=== PATIENT | male | born 1940 | race Caucasian/White ===

== ENCOUNTER 2016-12-23 19:16 | Inpatient (IN) | payer MEDICARE ==
[2016-12-23 19:38] LABS: #Eosinphils 0.5 thou/uL (0.0-0.7); #Lymphocytes 1.5 thou/uL (1.20-3.40); #Monocytes 0.8 thou/uL (0.11-0.59); #Neutrophils 6.9 thou/uL (1.40-6.50); %Basophils 0.4 % (0.0-1.0); %Eosinophils 5.6 % (0.0-10.0); %Lymphocytes 15.6 % (21.0-51.0); %Monocytes 7.9 % (0.0-10.0); Hematocrit 41.1 % (42.0-52.0); Mean Platelet Volume 9.4 fL (7.4-10.4); Red Blood Cell (RBC) Count 5.36 mill/uL (4.70-6.10); White Blood Cell (WBC) Count 9.7 thou/uL (4.8-10.8)
[2016-12-23 19:46] LABS: PTT 29.2 SEC (22.9-36.1); Prothrombin Time 13.5 SEC (12.0-14.7)
[2016-12-23 20:03] LABS: ALT (SGPT) 13 U/L (8-55); AST (SGOT) 16 U/L (5-34); Alkaline Phosphatase 117 U/L (40-150); Anion Gap 14 mmol/L (10-20); BUN (Urea Nitrogen) 24 mg/dL (8.4-25.7); Bilirubin, Total 0.4 mg/dL (0.2-1.2); Calc. Creatinine Clearance 0 mL/min (70-130); Calcium 8.7 mg/dL (7.8-10.44); Carbon Dioxide 25 mmol/L (23-31); Chloride 100 mmol/L (98-107); Estimated GFR-MDRD 49; Globulin 2.9 g/dL (2.4-3.5); Lipase 63 U/L (8-78); Protein, Total 6.6 g/dL (5.8-8.1)
--- NOTE | 2016-12-23 20:04 | RAD ---
PORTABLE CHEST: 12/23/16 COMPARISON: 10/23/08 exam. HISTORY: Chest pain. The patient is rotated. Heart size appears borderline to slightly enlarged. Chronic appearing lung c hanges are seen without any definite focal infiltrates. IMPRESSION: Cardiomegaly with some mild chronic appearing lung change. POS: [facility]
[2016-12-23 20:07] LABS: Troponin I Less than 0.010 ng/mL (< 0.028)
[2016-12-23 21:15] LABS: Bilirubin Negative (Negative); Blood, Urine Negative (Negative); Glucose, Urine (Dipstick) Negative (Negative); Ketone, Urine Negative (Negative); Nitrite Negative (Negative); Protein, Urine (Dipstick) Negative (Neg-Trace)
[2016-12-23 21:24] LABS: Amphetamine Not Detected (NotDetected); Methadone Not Detected (NotDetected); Methamphetamine Not Detected (NotDetected)
[2016-12-23 21:31] LABS: Lactic Acid - Sepsis 2.9 mmol/L (0.5-2.2)
[2016-12-23] MEDS ORDERED: Furosemide 40 MG/4 ML VIAL ONE (22:07)
[2016-12-23] MEDS ORDERED: Furosemide 20 MG/2 ML VIAL ONE (22:07)
[2016-12-24] MEDS ORDERED: Ondansetron ODT 4 MG TAB SL PRN (03:05)
[2016-12-24] MEDS ORDERED: HYDROcodone/Acetaminophen 10/325 mg Tablet PO PRN (03:05)
[2016-12-24] MEDS ORDERED: Ondansetron HCl/PF 4 MG/2 ML Vial IVP PRN (03:05)
[2016-12-24] MEDS ORDERED: Dextrose 5% in Water 1,000 ML IV PRN (03:05)
[2016-12-24] MEDS ORDERED: Dextrose 50% Abboject 50 ML SYRINGE SLOW IVP PRN (03:05)
[2016-12-24] MEDS ORDERED: HYDROcodone/Acetaminophen 5/325 mg Tablet PO PRN (03:05)
[2016-12-24] MEDS ORDERED: Acetaminophen 325 MG TAB PO PRN (03:05)
[2016-12-24] MEDS ORDERED: HumaLOG 300 UNITS/3 ML VIAL SC PRN (03:05)
[2016-12-24] MEDS ORDERED: Ondansetron ODT 4 MG TAB PO PRN (03:05)
[2016-12-24 03:08] LABS: Troponin I 0.014 ng/mL (< 0.028)
[2016-12-24] MEDS: Potassium Chloride 20 MEQ TAB PO SCH ×3 (03:30→12:41)
[2016-12-24 03:51] VITALS: BMI 38.2
[2016-12-24 04:05] LABS: #Lymphocytes 1.8 thou/uL (1.20-3.40); #Monocytes 0.6 thou/uL (0.11-0.59); #Neutrophils 6.1 thou/uL (1.40-6.50); %Basophils 0.2 % (0.0-1.0); %Eosinophils 10.4 % (0.0-10.0); %Lymphocytes 19.2 % (21.0-51.0); %Monocytes 6.4 % (0.0-10.0); Hematocrit 38.8 % (42.0-52.0); Mean Platelet Volume 10.1 fL (7.4-10.4); Red Blood Cell (RBC) Count 5.05 mill/uL (4.70-6.10); White Blood Cell (WBC) Count 9.5 thou/uL (4.8-10.8)
[2016-12-24 04:12] LABS: Anion Gap 12 mmol/L (10-20); BUN (Urea Nitrogen) 20 mg/dL (8.4-25.7); Calc. Creatinine Clearance 91 mL/min (70-130); Calcium 8.3 mg/dL (7.8-10.44); Carbon Dioxide 24 mmol/L (23-31); Chloride 105 mmol/L (98-107); Estimated GFR-MDRD 56
--- NOTE | 2016-12-24 06:52 | HP ---
DATE OF ADMISSION: 12/24/2016 TIME OF VISIT: 0140 hours. CHIEF COMPLAINT: Abnormal rhythm. HISTORY OF PRESENT ILLNESS: Mr. Hurst is a pleasant 76-year-old gentleman with history of recurren t atrial fibrillation. He states he had ablation on three occasions and cardioversion at least a do diamond times. The patient has been in normal state of health about 3 days ago when he started noticed he would become more short of breath. He would check his pulse ox on the pulse oximeter and notes t hat his rate would fluctuate anywhere from 40-180. Today, he felt a little worse than normal, he called EMS and arrival was found to be \\\\"in SVT\\\\". He was transported to the hospital and en route received adenosine 6 mg followed by 12 mg and suppos edly it converted at that point to atrial fibrillation with RVR. He received a dose of Cardizem x1 and converted to normal sinus rhythm which he has been in since arrival to our ER. His blood pressu re on the low side after getting the Cardizem, and in the ER, he received initial 2 liters of IV flu ids and looks like he did get a third after that. They were concerned they gave him too much fluid and may go into heart failure; therefore, he got a dose of IV Lasix. His heart rate remained in the mid 90s since that time. He denies any chest pain or shortness of breath, his oxygen saturations h ave been maintained normal on room air. The patient has been eating okay, but not drinking as much water. He started drinking a peach tea that he gets from the grocery store and did not realize that had caffeine. He thinks it may have been inadvertently diurese himself with that instead. No other current complaints. Denies any chest pain, no nausea and vomiting, no diaphoresis or sweat s. In the ER after his fluids, his blood pressure normalized in the one-teens over 60s. When I came an d ultimately see him, his blood pressure dropped to 98/68 after putting out almost a liter with his IV Lasix, a repeat blood pressure with standing up was only slightly better at 102/65, therefore it was decided to observe him. He had no other current complaints. PAST MEDICAL HISTORY: 1. Atrial fibrillation, recurrent. He thinks it has been sinus rhythm for about a year or so. He is followed by Dr. Karri Marr at [facility]. 2. Coronary artery disease. 3. Heart attack x2 in the past with stents. 4. Diabetes mellitus type 2 on insulin. 5. Depression. 6. Obstructive sleep apnea. PAST SURGICAL HISTORY: 1. Right femur repair. 2. Appendectomy. 3. Tonsillectomy. 4. Cardiac ablation x3. 5. Cardioversion times possibly 12. HOME MEDICATIONS: 1. Potassium chloride 20 mEq daily. 2. Sitagliptin 5 mg p.o. daily. 3. Lantus 51 units subcu q.p.m. 4. Lisinopril 20 mg p.o. q.a.m.. 5. Lasix 40 mg p.o. b.i.d. 6. Aspirin 81 mg daily. 7. Omeprazole 20 mg p.o. b.i.d. 8. Metformin 1000 mg p.o. b.i.d. ALLERGIES: CIPRO. FAMILY HISTORY: Negative for clotting or bleeding disorder and no immune dysfunction. SOCIAL HISTORY: Significant for a drink he says once about every 18 months. No tobacco or drugs. He is and lives with his here locally. He has 8 sons-in-law and a daughter who lives [facility]. REVIEW OF SYSTEMS: A 10-point review of systems was performed and negative for all other systems ex cept as stated as per HPI. PHYSICAL EXAMINATION: VITAL SIGNS: Temperature 98.7, pulse 96, blood pressure currently is 102/65, respiratory rate 22, a nd satting 95% on room air. GENERAL: He is awake. He is alert. He is oriented x3. He does appear to be in no acute distress, well-developed, obese white male, appears to be comfortable. HEENT: Normocephalic and atraumatic. Pupils equal and reactive bilaterally, mucous membranes are m oist. There are no visible lesions. No thrush. NECK: Supple, no lymphadenopathy, no JVD, no thyromegaly with normal carotid upstrokes. LUNGS: Clear to auscultation bilaterally. He has no wheezing, no rales, no rhonchi. CARDIOVASCULAR: Normal S1, S2, slightly tachycardic in the mid 90s. He has no audible murmurs. ABDOMEN: Soft, is obese, is nontender. I cannot palpate his organs. EXTREMITIES: Show no cyanosis, no clubbing, and no edema. He has 1+ peripheral pulses, dorsalis pe dis, posterior tibial, and radial arteries. SKIN: Warm, moist, well perfused. He has no rashes, no lesions. MUSCULOSKELETAL: Normal to inspection. He has no inflamed joints. No palpable joint effusions. NEUROLOGIC: Cranial nerves II-XII are grossly intact without any focal neurologic deficits, 5/5 str ength, and normal speech pattern. LABORATORY DATA: A comprehensive metabolic profile is normal. Creatinine 1.4, glucose 174. CBC sh owed a white count 9.7, hemoglobin 12.7, hematocrit 41.4, and platelets 121,000. Chest x-ray was ne gative for acute cardiopulmonary disease. ASSESSMENT AND PLAN: 1. Atrial fibrillation, paroxysmal. The patient had been in sinus rhythm for about a year. I susp ect he became dehydrated on his peach tea that he was drinking, not been drinking much fluid. He dos santos bsequently developed tachycardia that was along with atrial fibrillation. I doubt he ever had any C T and I have not been able to see any rhythm strips from that. At this time, he is converted back t o sinus rhythm with a dose of Cardizem, however, did make him hypotensive and therefore he got fluid s in the ER. Due to concern over resuscitating him, he got a dose of IV Lasix, he has not started t o become slightly hypotensive again. We will place the patient on observation, biomarkers have been negative x2, lactic acid has normalized, I will watch him through the day. 2. [id number]-[id number] dehydration: The patient's lactic acid was 4 on admission. After 2-3 liters of fluid, his lactic acid normalized to 1.6. Troponin I was negative and CK-MB was negative. BNP was 36 on arrival. At this point, I think dehydration has mostly resolved, although that the given a dose of IV Lasix, he maybe getting a little volume down again. We will continue to monitor and janie caraballo need to check orthostatics. 3. Coronary artery disease with history of myocardial infarction x2: No chest pain. Negative trop onin. 4. Diabetes mellitus type 2, insulin-dependent, on Lantus, sitagliptin, metformin. I will restart his medications. I will use sliding scale insulin to correct until he receives his Lantus. 5. Depression. 6. Obstructive sleep apnea: The patient did bring his CPAP with him. It is okay for him to use th at. I will observe the patient throughout the course of the day today. I suspect if his blood pressure is normal, he may be able to go home later on today.
--- NOTE | 2016-12-24 07:50 | PDOC.EVN ---
Event Note - Event Note Event Note: complaint expressed. Feels better. No palpitation, no CP. PR90, BP 102/62 S1S2 regular Lungs clear no legs edema. A/ Paroxysmal atrial fibrillation,seen by field producer. Continue current management. Home tomorrow.
[2016-12-24] MEDS: Furosemide 40 MG TAB PO SCH ×2 (08:36→12:41)
[2016-12-24] MEDS: metFORMIN 500 MG TAB PO SCH ×2 (08:37→17:48)
[2016-12-24] MEDS: Famotidine 20 MG TAB PO SCH ×2 (08:39→20:43)
[2016-12-24] MEDS: Enoxaparin Sodium 40 MG/0.4 ML SYRINGE SC SCH (08:41)
[2016-12-24] MEDS ORDERED: Lisinopril 20 MG TAB PO SCH (09:00)
--- NOTE | 2016-12-24 10:27 | RAD ---
CHEST 1 VIEW: HISTORY: Shortness of breath. COMPARISON: Chest 1 view prior day. FINDINGS: There is some chronic scarring in the right lung base. Cardiac silhouette and mediastinal contours are similar. Large volume pericardial fat. IMPRESSION: No significant change in the radiographic appearance of the chest. POS: [facility]
[2016-12-24 11:17] LABS: Sodium 137 mmol/L (135-148)
[2016-12-24 11:19] LABS: Mode ROOM AIR
--- NOTE | 2016-12-24 14:38 | CT ---
CTA CHEST WITH CONTRAST: HISTORY: Shortness of breath, tachycardia. COMPARISON: None. TECHNIQUE: CT angiogram chest performed after the intravenous administration of contrast. Three-D rendering pr ovided. There are extensive subcutaneous collaterals to the left chest wall. This is just a proxim al stenosis of the axillary subclavian vein. This would be the left axillary or subclavian vein or possibly even the brachial vein given the left injection. No proximal segmental pulmonary arterial filling defect. Numerous peritracheal and subcarinal lymph nodes are mildly increased in size and number. Heart size is normal, although there is extensive e picardial fat. There is consolidation in the right lower lobe. Mild interstitial prominence in the lung bases sugg ests edema. No pneumothorax. No suspicious lytic or blastic lesions of the skeleton. No compression fracture o f the thoracic spine. Benign-appearing sclerosis of the left posterior 8th rib. No displaced rib fracture. The upper abdomen is unremarkable. Small sliding hiatal hernia. IMPRESSION: 1. 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 Ultrasound cj luation may be helpful. 2. Numerous mildly increased in number and size of mediastinal lymph nodes may be reactive may be r eactive, although lymph node proliferative disorder cannot be excluded. Clinical followup is sugges alvino. 3. Consolidation right lower lobe suggests infection. 4. Mild pulmonary edema. 5. Extensive epicardial fat. POS: [facility]
--- NOTE | 2016-12-24 15:26 | CON ---
DATE OF CONSULTATION: 12/24/2016 REASON FOR CONSULTATION: Atrial fibrillation, RVR and SVT. HISTORY OF PRESENT ILLNESS: Mr. Hurst is a 76-year-old white gentleman, who comes to the hospital for tachycardia. He states that for the last few days, he has noticed he becomes really short of br eath with any exertion. He would check his pulse oximeter and his heart rate went from 40s to the 1 80s. The symptoms would not go away, so eventually he decided to come in for evaluation. EMS arriv ed at his house and he was found to be in SVT. He was brought in and in the ER, he received a dose of adenosine and converted him into atrial fibrillation with RVR after that he received a dose of Ca rdizem in the ER and this converted him to sinus rhythm with a long first degree AV block and was ad mitted for this. It was noted that he might be volume depleted, so he was started on IV fluids. He got a total of about 4 liters. His creatinine got better after that. Currently, he remains in sin us rhythm, he gets very tachycardic when he stands and walks around and he is much more short of mayco ath than normal. He has a history of atrial tachycardias and atrial fibrillation with several abras ions in the past and several cardioversions. He has never felt his atrial fibrillation. He has nev er really noticed any shortness of breath while in atrial fibrillation, so this has really not been normal to how he has presented in the past with atrial fibrillation. He denies any long travel rece ntly. 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 PAST MEDICAL HISTORY: 1. Atrial fibrillation and atrial tachycardia in the past followed by Dr. Karri Marr. 2. Coronary artery disease with stent placement, last time about 2 years ago. 3. He had an ID back in 2007 with stents placed. 4. Type 2 diabetes. 5. Depression. 6. HAMILTON. PAST SURGICAL HISTORY: 1. Right femur repair. 2. Appendectomy. 3. Tonsillectomy. 4. Cardiac ablation x3. 5. Cardioversion several times about 12 times apparently. OUTPATIENT MEDICATIONS: Include: 1. Potassium chloride 20 mEq a day. 2. Sitagliptin 5 mg a day. 3. Lantus. 4. Lisinopril 20 mg q.a.m. 5. Lasix 40 mg b.i.d. 6. Aspirin 81 a day. 7. Omeprazole 20 mg b.i.d. 8. Metformin 1000 mg b.i.d. ALLERGIES: CIPRO. FAMILY HISTORY: Noncontributory. SOCIAL HISTORY: No alcohol, tobacco or drugs. Lives with his here in [place]. He has 9 childre n, 8 sons-in-law and a daughter. REVIEW OF SYSTEMS: A 10-point review of systems was done and is all negative unless stated in the h istory of present illness. PHYSICAL EXAMINATION: VITAL SIGNS: Temperature 97.5, pulse 100, respiration rate 18, satting 95% on room air, blood press ure 119/68. GENERAL: Awake, alert, oriented x3, no distress. HEENT: Normocephalic, atraumatic. NECK: Supple. LUNGS: Clear. CARDIOVASCULAR: S1, S2, no S3 or S4. No murmurs or rubs. ABDOMEN: Soft, but prominent. EXTREMITIES: Trace edema bilaterally. SKIN: Warm and dry. LABORATORY WORK: Reviewed. CBC with a white count of 9, hemoglobin 12, hematocrit 41, platelet cou nt of 121. Coags were unremarkable. ABG was reviewed. PCO2 was low and pO2 was actually high, pH was 7.47. Chemistries are unremarkable. Lactic acid on admission was 4.0, down to 1.6. Calcium wa s normal. Troponin has been negative x2. TSH was normal. Lipase was 63, creatinine went from 1.4 down to 1.25 with GFR of 56. UA was negative. Toxicology UDS was normal. IMAGING: EKG on admission showed a sinus rhythm with a long first degree AV block, ND interval was 312. Chest x-ray was reviewed on admission, it showed mild cardiomegaly with no acute findings. A repeat chest x-ray showed similar findings with no changes. ASSESSMENT AND PLAN: 1. Shortness of breath. 2. Atrial fibrillation with rapid ventricular response, currently in sinus rhythm with episodes of sinus tachycardia when standing up. 3. Atrial tachycardia/supraventricular tachycardia. 4. Coronary artery disease, no evidence of acute coronary syndrome currently. 5. Status post multiple ablations. PLAN: 1. We will get an EKG right now. He has tachycardia in the 110s. He is still in atrial fibrillati on because of his long ND interval it is hard to see if there is any P waves on telemetry and it see ms quite regular. Otherwise, I am concerned about pulmonary embolism at this time, as I do not have a good explanation for his shortness of breath. He has got a clear x-ray clear lung mitchell and he is still getting short of breath with tachycardia when he moves around. We will get a CT angio and more recommendations pending results. 2. We will repeat an echocardiogram as well to look at LV function and valvular structures. Thank you for letting us to participate in the care of your patient. We will continue to follow.
[2016-12-24] MEDS: Lisinopril 20 MG TAB PO SCH (20:43)
[2016-12-24] MEDS: PRE FILLED SC SCH (20:44)
[2016-12-24] MEDS: INSULIN DETEMIR SC SCH (20:44)
[2016-12-25] MEDS: Enoxaparin Sodium 40 MG/0.4 ML SYRINGE SC SCH (08:50)
[2016-12-25] MEDS: Famotidine 20 MG TAB PO SCH ×2 (08:52→21:16)
[2016-12-25] MEDS: Furosemide 40 MG TAB PO SCH ×2 (08:52→15:41)
[2016-12-25] MEDS: metFORMIN 500 MG TAB PO SCH ×2 (08:52→17:46)
[2016-12-25] MEDS ORDERED: cefTRIAXone\\ROCEPHIN 2 GM in Sodium Chloride 0.9% 100 ML IVPB SCH (11:00)
[2016-12-25] MEDS ORDERED: Azithromycin 500 MG in Sodium Chloride 0.9% 250 ML 250 ML IVPB SCH (12:00)
[2016-12-25] MEDS ORDERED: Iopamidol 370 76% 100 ML VIAL ONE (14:39)
[2016-12-25] MEDS ORDERED: Metoprolol Tartrate 5 MG/5 ML VIAL IVP PRN (14:42)
--- NOTE | 2016-12-25 14:49 | PDOC.PN ---
- Subjective Encounter Start Date: 12/25/16 Encounter Start Time: 10:30 Pt seen and examined. chart reviewed. Case discussed with Dr Senior face-to- face. pt had echo done earlier today. I had ambulatory O2 checked after i saw, 95% on RA. Pt remains tachycardic with GABY. CTA negative for PE but did show RLL atelectasis, ractive nodes, labs look good Tele shows NSr, tachycardic. technology methodology consultant thought it might be jxnl, but form and rate not right for JRT or ARIANNE. No F/c, no N/V/d/C,no CP, no SOB at rest 10 point ROS performed and neg for all except as per HPI - Objective Resuscitation Status: Resuscitation Status FULL:Full Resuscitation MAR Reviewed: Yes Vital Signs & Weight: Vital Signs (12 hours) Temp Pulse Resp BP BP Pulse Ox 12/25/16 11:10 102 H 18 125/78 95 12/25/16 08:00 98.3 F 104 H 20 12/25/16 04:05 98.3 F 104 H 20 107/63 96 Weight Admit Weight 289 lb 14.4 oz Weight 289 lb 14.4 oz I&O: 12/24/16 12/25/16 12/26/16 06:59 06:59 06:59 Intake Total 360 720 Balance 360 720 Result Diagrams: 12/24/16 02:34 12/24/16 02:34 Additional Labs: Accuchecks 12/25/16 12/25/16 12/25/16 11:15 07:49 05:31 POC Glucose 114 H 119 H 68 L 12/24/16 12/24/16 20:42 16:35 POC Glucose 107 143 H Radiology Reviewed by me: Yes EKG Reviewed by me: Yes Phys Exam - Physical Examination Constitutional: NAD HEENT: PERRLA, moist MMs, sclera anicteric, oral pharynx no lesions Neck: no nodes, no JVD, supple, full ROM Respiratory: no wheezing, no rales, no rhonchi, clear to auscultation bilateral decreased Right basilar BS, no rales Cardiovascular: RRR, no significant murmur, no rub Gastrointestinal: soft, non-tender, no distention, positive bowel sounds Musculoskeletal: pulses present, edema present 1+ BLE Neurological: non-focal, normal sensation, moves all 4 limbs Lymphatic: no nodes Psychiatric: normal affect, A&O x 3 Skin: no rash, normal turgor, cap refill <2 seconds Dx/Plan (1) Paroxysmal a-fib Code(s): I48.0 - PAROXYSMAL ATRIAL FIBRILLATION Status: Acute Comment: in NSR since he got cardizem by EMS. still tachy. discussed with nadeen, will give IV lopressor and EKG before and after (2) Hypotension Status: Acute Qualifiers: Hypotension type: hypotension due to drug Qualified Code(s): I95.2 - Hypotension due to drugs Comment: initally due to cardizem, but improved, just as given lasix in ER with recurrent drop as he diuresed. 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 - Plan cont current plan of care * . EKG for baseline, IV lopressor, repeat. No hypoxia, soem ALMANZAR. echo report pending, Nadeen to review. Stat BNP ordered due to mild pulm edema on CTA
--- NOTE | 2016-12-25 16:20 | EKG ---
Test Reason : Blood Pressure : / mmHG Vent. Rate : 101 BPM Atrial Rate : 214 BPM P-R Int : 000 ms QRS Dur : 078 ms QT Int : 312 ms P-R-T Axes : 000 076 052 degrees QTc Int : 404 ms Normal sinus rhythm with 1st degree A-V block Abnormal ECG Confirmed by KIM GALLEGOS ([id number]) on 12/25/2016 4:20:04 PM Referred By: GURJIT Confirmed By:KIM GALLEGOS
--- NOTE | 2016-12-25 17:00 | EKG ---
Test Reason : Blood Pressure : / mmHG Vent. Rate : 107 BPM Atrial Rate : 115 BPM P-R Int : 000 ms QRS Dur : 102 ms QT Int : 342 ms P-R-T Axes : 000 071 054 degrees QTc Int : 456 ms sinus with long IN interval and nearly hidden P waves Abnormal ECG When compared with ECG of 24-DEC-2016 14:05, (Unconfirmed) No significant change was found Confirmed by DR. Cezar DUMONT ([id number]) on 12/25/2016 5:00:35 PM Referred By: ARACELI Confirmed By:DR. Cezar DUMONT
--- NOTE | 2016-12-25 17:52 | PDOC.CTH ---
Cardiology Progress Note - Subjective He remains tachycardic and SOB with any exertion. - Objective Vital Signs Temp Pulse Resp BP BP Pulse Ox 12/25/16 15:33 98.3 F 108 H 24 H 117/66 95 12/25/16 11:10 102 H 18 125/78 95 12/25/16 08:00 98.3 F 104 H 20 Admit Weight 289 lb 14.4 oz Weight 289 lb 14.4 oz 12/24/16 12/25/16 12/26/16 06:59 06:59 06:59 Intake Total 360 720 Balance 360 720 - Physical Examination General/Neuro: alert & oriented x3 Neck: no JVD present Lungs: CTA, unlabored respirations Heart: RRR Abdomen: NT/ND Extremities: + edema B (trace) - Telemetry Telemetry Rhythm: S tach, 1st degree AVB - Labs Result Diagrams: 12/24/16 02:34 12/24/16 02:34 Troponin/CKMB CK-MB (CK-2) 2.0 ng/mL (0-6.6) 12/23/16 19:33 Troponin I 0.014 ng/mL (< 0.028) 12/24/16 02:34 - Assessment/Plan 1. Sinus tachycardia 2. 1st degree AV block, long 3. Possible infiltrate 4. Reactive lymphadenopathy. PLAN: - Consider pulmonary evaluation. - Continue Abx per primary team.
[2016-12-25] MEDS ORDERED: Furosemide 40 MG/4 ML VIAL SLOW IVP SCH (18:00)
[2016-12-25] MEDS: PRE FILLED SC SCH (21:17)
[2016-12-25] MEDS: INSULIN DETEMIR SC SCH (21:17)
[2016-12-25] MEDS: Lisinopril 20 MG TAB PO SCH (21:17)
[2016-12-26] MEDS: Enoxaparin Sodium 40 MG/0.4 ML SYRINGE SC SCH (08:22)
[2016-12-26] MEDS: Furosemide 40 MG TAB PO SCH ×2 (08:23→14:24)
[2016-12-26] MEDS: metFORMIN 500 MG TAB PO SCH ×2 (08:23→18:12)
[2016-12-26] MEDS: Famotidine 20 MG TAB PO SCH ×2 (08:23→21:24)
--- NOTE | 2016-12-26 11:12 | CON ---
DATE OF CONSULTATION: 12/26/2016 CONSULTING PHYSICIAN: Dr. Arriaga from the [facility]. REASON FOR CONSULTATION: Right lower lobe atelectasis. HISTORY OF PRESENT ILLNESS: The patient is a 76-year-old male who presented here with an elevated h eart rate. He was found to be in SVT with a heart rate of about 180. He had a CT pulmonary angiogr am to rule out pulmonary emboli. This showed right lower lobe atelectasis. I was consulted to give an opinion on that. The patient states that he was diagnosed with the atelectasis about 30 years ago. He had a negative PET scan about 20 years ago. He has been followed by Dr. Shepard at [facility] 2 times over the last 8 years and apparently has x-rays over there demonstrating this. PAST MEDICAL HISTORY: 1. Atrial fibrillation. 2. Coronary artery disease. 3. Diabetes mellitus. 4. The right lower lobe atelectasis. 5. Depression. 6. Obstructive sleep apnea. PAST SURGICAL HISTORY: 1. Right femur repair. 2. Appendectomy. 3. Tonsillectomy. 4. Cardiac ablations. 5. Cardioversion. MEDICATIONS PRIOR TO ADMISSION: Potassium, sitagliptin, Lantus, lisinopril, Lasix, aspirin, omepraz ole, metformin. ALLERGIES: CIPRO. FAMILY MEDICAL HISTORY: Unremarkable. SOCIAL HISTORY: Very occasionally drinks alcohol. No tobacco history. REVIEW OF SYSTEMS: Ten point review of systems otherwise negative. PHYSICAL EXAMINATION: VITAL SIGNS: Temperature 97.9, pulse 107, respirations 20, O2 sat 95%, blood pressure 99/54. GENERAL: He is awake and alert, in no distress. HEENT: Unremarkable. NECK: No JVD. LUNGS: Clear to auscultation except for a few crackles in the right base. CARDIAC: S1, S2 regular. ABDOMEN: Soft, nontender. EXTREMITIES: No edema. LABORATORY DATA: White blood cell count 9.5, hematocrit 38.8, platelet count 122. Sodium 137, pota ssium 4.2, BUN 20, creatinine 1.2, glucose 114. CT was reviewed and shows a small area of atelectasis in the right lower lobe. ASSESSMENT: Atelectasis - patient gives a good history that this has been present. Apparently the re are old films that can substantiate this. RECOMMENDATIONS: I do not recommend any further follow from my standpoint. He can go back and see Dr. Shepard at [facility] and compare these films to the previous films. Please recall if evangelina morris help needed.
--- NOTE | 2016-12-26 11:58 | EKG ---
Test Reason : Blood Pressure : / mmHG Vent. Rate : 103 BPM Atrial Rate : 105 BPM P-R Int : 000 ms QRS Dur : 086 ms QT Int : 316 ms P-R-T Axes : 000 082 -12 degrees QTc Int : 413 ms Sinus tachycardia with 1st degree A-V block T wave abnormality, consider inferior ischemia Abnormal ECG When compared with ECG of 25-DEC-2016 15:37, Previous ECG has undetermined rhythm, needs review Confirmed by DR. Cezar DUMONT ([id number]) on 12/26/2016 11:57:45 AM Referred By: ARACELI Confirmed By:DR. Cezar DUMONT
--- NOTE | 2016-12-26 12:57 | PDOC.PN ---
- Subjective Encounter Start Date: 12/26/16 Encounter Start Time: 12:55 Subjective: f/u for SVT and hypotension. Plan for EP evaluation. Overall feels ok. -: SOB with movement or ambulation. - Objective MAR Reviewed: Yes Vital Signs & Weight: Vital Signs (12 hours) Temp Pulse Resp BP Pulse Ox 12/26/16 11:48 97.9 F 111 H 18 100/56 L 94 L 12/26/16 07:12 98.0 F 107 H 20 99/54 L 95 12/26/16 04:00 97.9 F 106 H 20 103/61 95 Weight Weight 283 lb 8 oz I&O: 12/25/16 12/26/16 12/27/16 06:59 06:59 06:59 Intake Total 720 1260 Output Total 1225 Balance 720 35 Result Diagrams: 12/24/16 02:34 12/24/16 02:34 Additional Labs: Accuchecks 12/26/16 12/26/16 12/25/16 11:51 05:43 20:03 POC Glucose 124 H 103 115 H 12/25/16 16:36 POC Glucose 151 H Radiology Reviewed by me: Yes (2D Echo - EF 60-65%, mild LAE) EKG Reviewed by me: Yes (Tele - Sinus tachy in low 100's) Phys Exam - Physical Examination Constitutional: NAD HEENT: PERRLA, oral pharynx no lesions Neck: no JVD, supple Respiratory: no wheezing, clear to auscultation bilateral tachycardic Gastrointestinal: soft, non-tender, no distention, positive bowel sounds Musculoskeletal: no edema, pulses present Neurological: normal sensation, moves all 4 limbs Psychiatric: A&O x 3 Skin: normal turgor, cap refill <2 seconds Dx/Plan (1) Sinus tachycardia Code(s): R00.0 - TACHYCARDIA, UNSPECIFIED Status: Acute Comment: Etiology unclear, EP evaluation, ? trial of Beta flavia (2) Hypotension Status: Acute Qualifiers: Hypotension type: hypotension due to drug Qualified Code(s): I95.2 - Hypotension due to drugs Comment: initally due to cardizem, but improved, just as given lasix in ER with recurrent drop as he diuresed. BP now normal (3) Paroxysmal a-fib Code(s): I48.0 - PAROXYSMAL ATRIAL FIBRILLATION Status: Acute Comment: in NSR since he got cardizem by EMS. 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 (5) DM2 (diabetes mellitus, type 2) Status: Chronic Qualifiers: Diabetes mellitus complication status: without complication Diabetes mellitus shelter insulin use: with retail asset protection specialist use Qualified Code(s): E11.9 - Type 2 diabetes mellitus without complications; Z79.4 - shelter (current) use of insulin; Z79.4 - mat worker (current) use of insulin; Z79.4 - mat worker ( current) use of insulin; Z79.4 - shelter (current) use of insulin (6) Dehydration, moderate Code(s): E86.0 - DEHYDRATION Status: Resolved Comment: Resolved - Plan out of bed/ambulate, DVT proph w/SCDs Appreciate Cardiololgy and Pulmonary input -: Continue ASA 81mg daily -: Continue Lasix 4omg BID -: Continue Metformin 1000mg BID -: OOB/ambulate * .
--- NOTE | 2016-12-26 16:45 | PDOC.CTH ---
Cardiology Progress Note - Subjective He continues to feel SOB with any exertion. - Objective Vital Signs Temp Pulse Resp BP Pulse Ox 12/26/16 11:48 97.9 F 111 H 18 100/56 L 94 L 12/26/16 07:12 98.0 F 107 H 20 99/54 L 95 Weight 283 lb 8 oz 12/25/16 12/26/16 12/27/16 06:59 06:59 06:59 Intake Total 720 1260 Output Total 1225 Balance 720 35 - Physical Examination General/Neuro: alert & oriented x3, NAD Neck: no JVD present Lungs: unlabored respirations Heart: RRR Abdomen: NT/ND Extremities: other: (no edema) - Telemetry Telemetry Rhythm: Stach vs slow Atach - Labs Result Diagrams: 12/24/16 02:34 12/24/16 02:34 Troponin/CKMB CK-MB (CK-2) 2.0 ng/mL (0-6.6) 12/23/16 19:33 Troponin I 0.014 ng/mL (< 0.028) 12/24/16 02:34 - Assessment/Plan 1. Sinus tachycardia verdsus slow atach, short RP? 2. 1st degree AV block, long versus short RP tachycardia. 3. Possible infiltrate 4. Reactive lymphadenopathy. PLAN: - EP consultation.
[2016-12-26] MEDS: INSULIN DETEMIR SC SCH (21:24)
[2016-12-26] MEDS: PRE FILLED SC SCH (21:24)
[2016-12-26] MEDS: Apixaban 5 MG TAB PO SCH (21:24)
[2016-12-26] MEDS: Lisinopril 20 MG TAB PO SCH (21:24)
--- NOTE | 2016-12-27 00:34 | CON ---
ELECTROPHYSIOLOGY CONSULTATION REPORT DATE OF CONSULTATION: 12/26/2016 REFERRING PHYSICIAN: Dr. Senior. I am seeing Mr. Hurst at our [facility] telemetry floor as an electrophysiology solutions delivery consultant for the following problems: 1. Presentation with atrial arrhythmia with rapid rates. A. Initial presentation with worsening dyspnea and also heart rates ranging in 180s. B. In the ER, he was given adenosine, which converted him to atrial fibrillation with rapid ventric ular rates, which eventually required diltiazem and that converted him back to regular rhythm. C. Currently, with persistent atrial tachycardia. 2. Prior history of paroxysmal atrial fibrillation. A. History of atypical atrial flutter ablation in 12/2014. B. Two other prior ablation procedures per history. 3. History of oral anticoagulation. Currently off hence the bloody stool. 4. History of preserved LVEF. 5. Coronary artery disease. A. Prior history of stent placement about 2 years ago last time. B. History of myocardial infarction in 2007 with stent placements at that time as well. 6. History of obstructive sleep apnea, on CPAP. 7. Coronary artery risk factors. A. Type 2 diabetes. B. Hyperlipidemia. C. Hypertension. D. Obesity. 8. History of depression. ALLERGIES: CIPROFLOXACIN. CURRENT MEDICATIONS: Include Tylenol, hydrocodone, aspirin, dextrose, Lovenox, Pepcid, furosemide, glucagon, insulin, lisinopril, metformin, metoprolol, sodium. These are the medications currently. HOME MEDICATIONS: Include lisinopril 20 mg, furosemide 40 b.i.d., Lipitor 20 at bedtime, metformin, Onglyza, potassium chloride, omeprazole, aspirin, glargine insulin and saxagliptin. SUBJECTIVE: Mr. Hurst is here with symptoms of progressive dyspnea. He has had more prominent dys pnea though in the hospital, but previously at times, he also had orthopnea like symptoms. Sometime s, he sits on the side of the bed to breathe. More recently 2 days ago, started noticing worsening dyspnea. He also noticed his heart rate was fluctuating from low 40s to 180s. Eventually, he acevedo d the EMS. He was found to be in SVT. En route, received 6mg adenosine followed by 12 mg, which co nverted at that point atrial fibrillation to rapid ventricular rate. He did require diltiazem after that and ever since he is in a rapid with regular rhythm. He might go back into somewhat irregular heart beating as well. He was also noted to be dehydrated and he received some fluids. He also had abnormal lactic acid at that time. He denies any chest pains, did not pass out. No stroke-like symptoms. No neurological deficits. No fever, chills or cough. No PND or orthopnea noted. Rest of 12-point review of syste ms otherwise unremarkable. PAST MEDICAL HISTORY: As above. SOCIAL HISTORY: Patient denies smoking, EtOH or drug abuse. FAMILY HISTORY: Not contributory. PAST SURGICAL HISTORY: Significant for right femoral repair, appendicectomy, tonsillectomy, multipl e ablations and cardioversion. OBJECTIVE: VITAL SIGNS: Currently, blood pressure is 105/58, heart rate of 109, respirations 17 and temperatur e 97.6 degrees Fahrenheit. GENERAL: This is an alert, oriented, obese man in no apparent distress. NECK: Supple. Jugular veins not distended. CHEST: Coarse without crackles. CARDIOVASCULAR: Heart sounds are regular, but tachycardic. S1, S2 normal. No murmur or gallop. ABDOMEN: Benign. Bowel sounds positive. EXTREMITIES: Lower extremities without edema, clubbing or cyanosis. DATABASE: EKG is reviewed, revealing a regular narrow complex rhythm. P waves are visible right at the midway in between the QRS. I cannot rule out 2:1 atrial tachycardia or atrial flutter. Additional rhythm strips are reviewed, did reveal Wenckebach type AV conduction with rapid rates, po ssibly the same atrial tachyarrhythmia. LABORATORY AND IMAGING DATA: White count 9.5, hemoglobin 11.8 and platelet count is 122. INR 1. S odium 137, potassium 4.2, BUN is 20, creatinine is 1.25. Troponin levels reviewed are 0.01 and 0.01 4, normal. BNP was 36 on and 146 on the . A 2D echo from 12/25 reveals an LVEF of 60% to 65%, mild dilated left atrium, mild MR, mild TR, tiny pericardial effusion. Chest x-ray from the shows cardiomegaly with mild chronic lung changes unchanged. ASSESSMENT AND PLAN: Mr. Hurst is a 76-year-old man with prior history of atrial arrhythmias and s tatus post 3 ablations in the past most recently about 12/2014. He also has history of some diastol ic heart failure with normal left ventricular ejection fraction. He has presented with progressive dyspnea for the last 3 days and also noted to be in rapid narrow complex rhythm by EMS. Adenosine j ust converted him to atrial fibrillation and diltiazem has stabilized his rhythm. Currently, seems to be rate controlled with rest, but with activities, his heart rate increases. I discussed the potential treatment options. I think it will be reasonable to perform a cardioversi on for him. He might benefit from a LUKASZ prior to that to rule out any kind of intracardiac clots he nce he has not been anticoagulated. Continue anticoagulation will be reasonable. Assisted, he migh t be considered for a repeat ablation versus antiarrhythmic regimen. If recurrences are seen Multaq versus sotalol are reasonable options. I will discuss this with Dr. Senior. He will likely also n eed to follow up long-term with his [employer] independent beauty consultant as well.
[2016-12-27] MEDS: metFORMIN 500 MG TAB PO SCH ×2 (09:20→18:31)
[2016-12-27] MEDS: Famotidine 20 MG TAB PO SCH ×2 (09:22→21:23)
[2016-12-27] MEDS ORDERED: Diprivan 20 ML ONE (11:46)
[2016-12-27] MEDS ORDERED: Propofol 200 MG/20 ML VIAL ONE (12:12)
[2016-12-27] MEDS ORDERED: Morphine Sulfate 2 MG/ML SYRINGE SLOW IVP PRN (12:41)
[2016-12-27] MEDS ORDERED: Promethazine HCl 25 MG/ML VIAL SLOW IVP PRN (12:41)
[2016-12-27] MEDS ORDERED: Ondansetron HCl/PF 4 MG/2 ML Vial IVP PRN (12:41)
--- NOTE | 2016-12-27 12:51 | PRG ---
DATE OF SERVICE: 12/27/2016 SUBJECTIVE: Mr. Hurst is doing fair. No change since last night. OBJECTIVE: VITAL SIGNS: Blood pressure is 102/66, heart rate 110, respirations 20, temperature 97.4 degrees Fa hrenheit. GENERAL: He is alert and oriented man in no apparent distress. . DATABASE: Telemetry strips reveal continued atrial flutter, likely 2:1 AV conduction LABOARTORY DATA: None new. ASSESSMENT AND PLAN: Mr. Hurst a 76-year-old man with history of atrial arrhythmias, status post l eft atrial ablation procedures in the past, last in 2014. Now he is returning for recurrent palpita tion. He seems to be in atypical atrial flutter with 2:1 AV conduction. He has not been anticoagul ated easily, partially because of his past history of GI bleed on aspirin. On the other hand, he emmanuel d taken Eliquis in the past. PLAN: 1. Our plan was discussed with Dr. Senior. 2. Atrial flutter attempting to LUKASZ guided cardioversion. I put him back on Eliquis, although clos e monitoring for bleeding tendency should be considered. If bleeding recurs, he might be considered for a Watchman procedure. 3. If recurrent atrial flutter are seen, repeat left atrial ablation procedure is a strong consider ation. 4. Preserved LVEF on the echocardiogram, likely diastolic dysfunction, although currently without s ignificant fluid overload.
--- NOTE | 2016-12-27 13:31 | EKG ---
Test Reason : POST LUKASZ/CARDIOVERSI Blood Pressure : / mmHG Vent. Rate : 080 BPM Atrial Rate : 080 BPM P-R Int : 216 ms QRS Dur : 086 ms QT Int : 364 ms P-R-T Axes : 089 081 073 degrees QTc Int : 419 ms Sinus rhythm with 1st degree A-V block Otherwise normal ECG When compared with ECG of 25-DEC-2016 16:03, T wave inversion no longer evident in Inferior leads Confirmed by DR. Cezar DUMONT ([id number]) on 12/27/2016 1:30:58 PM Referred By: GURJIT Confirmed By:DR. Cezar DUMONT
[2016-12-27] MEDS: Furosemide 40 MG TAB PO SCH ×2 (15:01)
[2016-12-27] MEDS: Apixaban 5 MG TAB PO SCH ×2 (15:01→21:23)
--- NOTE | 2016-12-27 16:43 | PDOC.PN ---
- Subjective Encounter Start Date: 12/27/16 Encounter Start Time: 16:35 Subjective: f/u for A-flutter ablation today. Maintaining SR currently on tele. Eliquis -: restarted. - Objective MAR Reviewed: Yes Vital Signs & Weight: Vital Signs (12 hours) Temp Pulse Resp BP Pulse Ox 12/27/16 13:26 97.6 F 69 16 119/56 L 94 L 12/27/16 08:05 97.4 F L 110 H 20 102/66 93 L 12/27/16 08:00 97.4 F L 110 H 16 93 L Weight Weight 280 lb 4.8 oz I&O: 12/26/16 12/27/16 12/28/16 06:59 06:59 06:59 Intake Total 1260 600 320 Output Total 1225 825 850 Balance 76 -484 -570 Result Diagrams: 12/24/16 02:34 12/24/16 02:34 Additional Labs: Accuchecks 12/27/16 12/27/16 12/26/16 11:14 05:48 20:57 POC Glucose 93 87 109 12/26/16 17:57 POC Glucose 128 H EKG Reviewed by me: Yes (Tele - SR in 70's) Phys Exam - Physical Examination Constitutional: NAD HEENT: PERRLA, oral pharynx no lesions Neck: no JVD, supple Respiratory: no wheezing, clear to auscultation bilateral Cardiovascular: RRR Gastrointestinal: soft, non-tender, no distention, positive bowel sounds Musculoskeletal: no edema, pulses present Neurological: normal sensation, moves all 4 limbs Psychiatric: A&O x 3 Skin: normal turgor, cap refill <2 seconds Dx/Plan (1) Sinus tachycardia Code(s): R00.0 - TACHYCARDIA, UNSPECIFIED Status: Acute Comment: A-flutter with ablation 12/27/16, current SR, restart Eliquis (2) Hypotension Status: Acute Qualifiers: Hypotension type: hypotension due to drug Qualified Code(s): I95.2 - Hypotension due to drugs Comment: initally due to cardizem, but improved, just as given lasix in ER with recurrent drop as he diuresed. BP now normal (3) Paroxysmal a-fib Code(s): I48.0 - PAROXYSMAL ATRIAL FIBRILLATION Status: Acute Comment: in NSR since he got cardizem by EMS. EP evaluation complete, see #1, start Coreg 3.125mg BID (4) 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 (5) DM2 (diabetes mellitus, type 2) Status: Chronic Qualifiers: Diabetes mellitus complication status: without complication Diabetes mellitus director long term care insulin use: with director long term care use Qualified Code(s): E11.9 - Type 2 diabetes mellitus without complications; Z79.4 - retirement (current) use of insulin; Z79.4 - retirement (current) use of insulin; Z79.4 - retirement ( current) use of insulin; Z79.4 - exterminator helper termite (current) use of insulin (6) Dehydration, moderate Code(s): E86.0 - DEHYDRATION Status: Resolved Comment: Resolved - Plan Stable currently -: Eliquis 5mg BID -: Continue ASA 81mg daily -: Start Coreg 3.125mg BID -: Likely home 12/28/16 * .
[2016-12-27] MEDS: Carvedilol 3.125 MG TAB PO SCH (18:30)
[2016-12-27] MEDS: Lisinopril 20 MG TAB PO SCH ×3 (21:23→21:32)
[2016-12-27] MEDS: INSULIN DETEMIR SC SCH (21:26)
[2016-12-27] MEDS: PRE FILLED SC SCH (21:26)
[2016-12-28] MEDS: Famotidine 20 MG TAB PO SCH (08:28)
[2016-12-28] MEDS: Apixaban 5 MG TAB PO SCH (08:28)
[2016-12-28] MEDS: Furosemide 40 MG TAB PO SCH (08:28)
[2016-12-28] MEDS: Carvedilol 3.125 MG TAB PO SCH (08:28)
[2016-12-28] MEDS: metFORMIN 500 MG TAB PO SCH (08:28)
[2016-12-28] MEDS ORDERED: Triple Antibiotic Oint 1 GM Packet TOP PRN (09:09)
[2016-12-28 11:53] VITALS: BP 105/56; TEMP 97.6
--- NOTE | 2016-12-28 12:07 | DIS ---
DATE OF ADMISSION: 12/24/2016 DATE OF DISCHARGE: 12/28/2016 DISCHARGE DIAGNOSES: 1. Recurrent atrial flutter with rapid ventricular response, status post cardioversion with sinus m echanism 12/27/2016. 2. Hypotension, resolved. 3. History of paroxysmal atrial fibrillation, status post left atrial fibrillation. 4. Chronic right lower lobe atelectasis. 5. Diabetes mellitus type 2, insulin requiring. 6. Dehydration, moderate resolved. CONSULTATIONS: Dr. Nuno with Electrophysiology Service. Dr. Senior with Cardiology Service. Dr. Kristy whyte with Pulmonology Service. PERTINENT LABORATORY AND X-RAY FINDINGS: Creatinine ranged between 1.25-1.40. LFTs within normal l imits. BNP 36. Albumin 3.7. TSH 2.36. Lactic acid ranged between 1.6-4.0. CBC showed a hemoglob in ranging between 11.8-12.7. Urine drug screen dated 12/23/2016 negative. Portable chest x-ray da alvino 12/23/2016 showed a mild chronic lung changes with cardiomegaly. CT angiogram of the chest date d 12/24/2016 showed consolidation of the right lower lobe. Mild pulmonary edema. 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 A 2D transthoracic echocardiogram dated 12/25/2016 showed ejection fraction of 60-65 %. No evidence of tamponade. HOSPITAL COURSE: Patient was initially admitted to the telemetry unit after presenting with atrial fibrillation/atrial flutter with rapid ventricular response. The patient with multiple prior cardio versions and status post ablation returning with rapid ventricular response. The patient was initia lly managed with adenosine receiving 6 mg followed by 12 mg converting to normal sinus mechanism. P atient was noted with hypotension and placed on IV fluids for stabilization. The patient was evalua alvino by the Cardiology Service with recommendations to undergo EP evaluation. The patient underwent evaluation on 12/27/2016 undergoing a LUKASZ followed by cardioversion with successful return to sinus mechanism. The patient was also initiated on low dose of Coreg 3.125 mg b.i.d. for maintenance of r ate control. Patient was also initiated on Eliquis 5 mg p.o. b.i.d. for anticoagulation and to miti gate stroke risk. Overall, the patient remained clinically stable for remainder of the hospital cou rse and ready for discharge on 12/28/2016. DISCHARGE MEDICATIONS: 1. Eliquis 5 mg 1 tab p.o. b.i.d. 2. Enteric coated aspirin 81 mg 1 tab p.o. daily. 3. Lipitor 20 mg p.o. at bedtime. 4. Coreg 3.125 mg p.o. b.i.d. 5. Lasix 40 mg p.o. b.i.d. 6. Glargine insulin 51 units subcutaneously at bedtime. 7. Lisinopril 20 mg p.o. at bedtime. 8. Omeprazole 20 mg p.o. b.i.d. 9. K-Dur 20 mEq one tab p.o. daily. 10. Onglyza 5 mg p.o. daily. 11. Metformin 1000 mg p.o. b.i.d. FOLLOWUP: The patient will follow up with his primary care provider, Dr. Zaman within 7 days of d ischarge. Patient will follow up with Dr. Senior with [facility] and to call their office for appointment time and date. CONDITION ON DISCHARGE: Stable. ACTIVITY: Ad alec. DIET: Heart healthy and ADA. CODE STATUS: Full. DISPOSITION: Home, 12/28/2016. Total time preparing and coordinating discharge 33 minutes
--- NOTE | 2016-12-29 11:14 | OP ---
DATE OF SERVICE: 12/27/2016 PROCEDURES PERFORMED: Cardioversion. SUMMARY: Mr. Hurst was brought to the tachycardic for planned LUKASZ cardioversion. Anesthesia depar tment provided with sedation for the patient. Please see their notes for details. After adequate s edation was achieved, transesophageal probe ruled out any thrombus. Patient had a single cardiovers ion shock delivered successfully converted into sinus rhythm from what appeared to be an atrial tach ycardia. CONCLUSIONS: 1. Continue current regimen. 2. May be discharged home in the morning.
--- NOTE | 2017-01-13 13:31 | EKG ---
Test Reason : AFIB Blood Pressure : / mmHG Vent. Rate : 097 BPM Atrial Rate : 072 BPM P-R Int : 000 ms QRS Dur : 084 ms QT Int : 320 ms P-R-T Axes : 000 067 051 degrees QTc Int : 406 ms Atrial fibrillation Abnormal ECG Confirmed by NATACHA MARTINEZ ([id number]), editor map WARNER PERALTA ([id number]) on 01/13/2017 1:31:19 PM Referred By: Confirmed By:NATACHA MARTINEZ
--- NOTE | 2017-01-15 20:04 | ECHO ---
TRANSESOPHAGEAL ECHOCARDIOGRAM: DATE OF SERVICE: 12/27/16 REASON FOR STUDY: Evaluation of left atrial appendage in preparation for shock. DETAILS: The patient was anesthetized by the anesthesiology department. Please see their notes for details. A fter adequate sedation was achieved, the transesophageal probe was inserted into the patient's mouth and into the esophagus, and multiplanar views were obtained. FINDINGS: Left ventricle appears to be normal size with normal systolic function. Mitral valve has mild MR. Aortic valve structurally normal, three cusps. No stenosis or regurgitation. Left atrium mildly dilated. Left atrial appendage is small with no evidence of thrombus, Intra-atrial septum appears to be intac t by color Doppler. CONCLUSIONS: 1. Normal systolic function. 2. Normal aortic valve. 3. Mild MR. 4. No evidence of left atrial appendage thrombus.
== END 2016-12-28 12:31 | disposition home or self-care (01) | DRG 309 ==
LOC: ERS 19:16 → 2SW 12-24 02:00 → OBSVTOIN 12-24 19:48 → 2NO 12-25 20:32
PROVIDERS: ADMIT Internal Medicine Infectious Disease; ATTEND Internal Medicine Infectious Disease
PROC: 5A2204Z Restoration of Cardiac Rhythm, Single (ICD-10-PCS; principal; 2016-12-27)
PROC: B245ZZ4 Ultrasonography of Left Heart, Transesophageal (ICD-10-PCS; 2016-12-27)
DX: I48.0 Paroxysmal atrial fibrillation (principal); J98.11 Atelectasis; E86.0 Dehydration; I95.9 Hypotension, unspecified; E11.9 Type 2 diabetes mellitus without complications; I25.2 Old myocardial infarction; F32.9 Major depressive disorder, single episode, unspecified; I25.10 Atherosclerotic heart disease of native coronary artery without angina pectoris; Z95.5 Presence of coronary angioplasty implant and graft; Z79.4 Long term (current) use of insulin; G47.33 Obstructive sleep apnea (adult) (pediatric); Z79.82 Long term (current) use of aspirin; Z88.1 Allergy status to other antibiotic agents; I48.4 Atypical atrial flutter; E78.5 Hyperlipidemia, unspecified; E66.9 Obesity, unspecified; Z68.37 Body mass index [BMI] 37.0-37.9, adult; I44.0 Atrioventricular block, first degree; T46.1X5A Adverse effect of calcium-channel blockers, initial encounter
CPT/HCPCS: 36415; 36416; 71010; 71275; 80048; 80053; 80306; 81003; 82553; 82805; 83605; 83690; 83880; 84443; 84484; 85025; 85610; 85730; 92960; 93005; 93010; 93306; 93312; 96361; 96374; A4216; J0456; J0696; J1650; J1815; J1940; J2704; J7050

== ENCOUNTER 2018-01-14 14:29 | Emergency (ER) | payer MEDICARE ==
[~2018-01-14 14:29] MED LIST: ISOVUE-370 76%-LOCM 1 ML ONE
[2018-01-14 15:14] LABS: Hemoglobin 12.2 g/dL (14.0-18.0); Mean Corpuscular HGB CONC 29.4 g/dL (32.0-36.0); Mean Corpuscular Hemoglobin 21.6 pg (27.0-31.0); Mean Corpuscular Volume 73.5 fL (78.0-98.0); Platelet Count 173 thou/uL (130-400); RBC Distribution Width 16.1 % (11.5-14.5); Red Blood Cell (RBC) Count 5.65 mill/uL (4.70-6.10); White Blood Cell (WBC) Count 8.8 thou/uL (4.8-10.8)
[2018-01-14 15:32] LABS: #Eosinphils 0.3 thou/uL (0.0-0.7); #Lymphocytes 1.7 thou/uL (1.20-3.40); #Monocytes 0.9 thou/uL (0.11-0.59); #Neutrophils 5.8 thou/uL (1.40-6.50); %Basophils 0.5 % (0.0-1.0); %Lymphocytes 19.5 % (21.0-51.0); %Monocytes 10.4 % (0.0-10.0); %Neutrophils 66.7 % (42.0-75.0); Anisocytosis SLIGHT = 6-15 cells (100X) (0-5/hpf); Elliptocytes SLIGHT = 2-5 cells (100X) (0-1/hpf); Hypochromia SLIGHT = 6-15 cells (100X) (0-5/hpf); MDiff Complete? YES; Microcytosis SLIGHT = 6-15 cells (100X) (0-5/hpf); PLT Morphology Comment Appears Adequate; Poikilocytosis SLIGHT = 6-15 cells (100X) (0-5/hpf)
[2018-01-14 15:34] LABS: ALT (SGPT) 12 U/L (8-55); AST (SGOT) 27 U/L (5-34); Albumin 4.1 g/dL (3.4-4.8); Alkaline Phosphatase 111 U/L (40-150); Anion Gap 13 mmol/L (10-20); BUN (Urea Nitrogen) 15 mg/dL (8.4-25.7); Bilirubin, Total 0.6 mg/dL (0.2-1.2); CK (CPK) 101 U/L (30-200); Calc. Creatinine Clearance 0 mL/min (70-130); Calcium 9.4 mg/dL (7.8-10.44); Carbon Dioxide 29 mmol/L (23-31); Chloride 102 mmol/L (98-107); Estimated GFR-MDRD 59; Globulin 3.3 g/dL (2.4-3.5); Potassium 4.9 mmol/L (3.5-5.1); Protein, Total 7.4 g/dL (5.8-8.1); Sodium 139 mmol/L (136-145)
[2018-01-14 15:37] LABS: Glucose 57 mg/dL (83-110)
[2018-01-14 15:38] LABS: CKMB 2.1 ng/mL (0-6.6); Troponin I Less than 0.010 ng/mL (< 0.028)
--- NOTE | 2018-01-14 16:32 | RAD ---
CHEST 1 VIEW: Date: 01/14/18 HISTORY: Chest pain. Heart palpitations. COMPARISON: Radiograph dated 12/24/16. FINDINGS: Heart size is enlarged. Low grade pulmonary venous congestion. No pneumothorax or large effusions. IMPRESSION: Cardiomegaly with mild pulmonary venous congestion. POS: [facility]
--- NOTE | 2018-01-14 16:49 | CT ---
CTA THORAX WITH CONTRAST: (Computed Tomographic Angiography, chest(noncoronary) with contrast material, and image postprocessin g) (PE protocol) DATE: 01/14/18 HISTORY: 78-year-old male with elevated D-Dimer and tachycardia. TECHNIQUE: IV injection of iodinated contrast: Administered. Scan acquisition timing attempted to coincide with iodinated contrast bolus reaching maximal density in pulmonary arteries. 3D MIP reconstructions. FINDINGS: There is no evidence of pulmonary thromboembolism. There is a large number of mildly enlarged mediast inal lymph nodes throughout all sublocations of the mediastinum, similar to previous CTA of 12/24/16. There is no thoracic aortic aneurysm or dissection. Large paracardial fat pad. Mediastinal lipomatos is. Again noted is the apparently chronic focal consolidation at the posterobasilar segment of right lower lobe at the right posterior costophrenic angle, very similar in appearance to the previous CT. Smaller such pleural based lung lesion abutting the right lateral pleural surface appears slightly la rger than it was on the previous CT. This involves the right middle lobe. There is chronic architectu ral distortion at the bases of the bilateral lungs. No pneumothorax. No pleural effusion. IMPRESSION: 1. No evidence of pulmonary thromboembolism. 2. Chronic pleural based densities at the right lung base, unchanged since 12/24/16. 3. Nonspecific mediastinal lymphadenopathy, unchanged since 12/24/16. 4. 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 jn[] POS: [facility]
== END 2018-01-14 17:13 | disposition home or self-care (01) ==
LOC: ERS 14:29
DX: I49.9 Cardiac arrhythmia, unspecified (principal); I25.2 Old myocardial infarction; E11.9 Type 2 diabetes mellitus without complications; F32.9 Major depressive disorder, single episode, unspecified; Z79.899 Other long term (current) drug therapy; Z79.84 Long term (current) use of oral hypoglycemic drugs; Z79.82 Long term (current) use of aspirin
CPT/HCPCS: 71045; 71275; 80053; 82550; 82553; 83880; 84484; 85025; 85379; 93005

== ENCOUNTER 2018-02-24 15:54 | Observation (INO) | payer MEDICARE ==
[2018-02-24 16:29] LABS: #Eosinphils 0.2 thou/uL (0.0-0.7); #Lymphocytes 1.5 thou/uL (1.20-3.40); #Monocytes 0.7 thou/uL (0.11-0.59); %Basophils 0.4 % (0.0-1.0); %Eosinophils 2.8 % (0.0-10.0); %Lymphocytes 17.9 % (21.0-51.0); %Monocytes 8.5 % (0.0-10.0); %Neutrophils 70.4 % (42.0-75.0); Hemoglobin 12.4 g/dL (14.0-18.0); Mean Corpuscular HGB CONC 30.6 g/dL (32.0-36.0); Mean Corpuscular Hemoglobin 22.4 pg (27.0-31.0); Mean Corpuscular Volume 73.2 fL (78.0-98.0); Mean Platelet Volume 11.3 fL (7.4-10.4); Platelet Count 106 thou/uL (130-400); Red Blood Cell (RBC) Count 5.54 mill/uL (4.70-6.10); White Blood Cell (WBC) Count 8.6 thou/uL (4.8-10.8)
[2018-02-24 16:44] LABS: ALT (SGPT) 9 U/L (8-55); AST (SGOT) 15 U/L (5-34); Alkaline Phosphatase 107 U/L (40-150); Anion Gap 14 mmol/L (10-20); BUN (Urea Nitrogen) 15 mg/dL (8.4-25.7); Bilirubin, Total 0.5 mg/dL (0.2-1.2); Calc. Creatinine Clearance 0 mL/min (70-130); Calcium 9.1 mg/dL (7.8-10.44); Carbon Dioxide 26 mmol/L (23-31); Chloride 104 mmol/L (98-107); Estimated GFR-MDRD 71; Glucose 77 mg/dL (83-110); Potassium 4.5 mmol/L (3.5-5.1); Sodium 139 mmol/L (136-145)
--- NOTE | 2018-02-24 17:55 | RAD ---
PORTABLE CHEST ONE VIEW: 02/24/2018 4:27 p.m. HISTORY: Tachycardia. COMPARISON: 01/14/2018 FINDINGS: The heart size is enlarged. The lungs are well expanded with stable chronic changes. No lobar conso lidation, pneumothoraces, or diamante pulmonary edema is seen. There may be a small right pleural effus ion. POS: [facility]
[2018-02-24] MEDS ORDERED: Diltiazem HCl 125 MG, Admixture Fee 1 EACH in Sodium Chloride 0.9% 100 ML IVPB SCH (18:00)
[2018-02-24 20:10] LABS: Troponin I 0.015 ng/mL (< 0.028)
[2018-02-24 21:41] VITALS: BMI 35.9
[2018-02-24 23:07] LABS: Troponin I Less than 0.010 ng/mL (< 0.028)
[2018-02-25] MEDS ORDERED: Acetaminophen 325 MG TAB PO PRN (07:50)
[2018-02-25] MEDS ORDERED: Ondansetron PF 4 MG/2 ML Vial IVP PRN (07:50)
[2018-02-25] MEDS ORDERED: Ondansetron ODT 4 MG TAB PO PRN (07:50)
[2018-02-25] MEDS ORDERED: HumaLOG 300 UNITS/3 ML VIAL SC PRN ×2 (08:24)
[2018-02-25] MEDS ORDERED: Dextrose 50% Abboject 50 ML SYRINGE SLOW IVP PRN (08:24)
[2018-02-25] MEDS ORDERED: Dextrose 5% in Water 1,000 ML IV PRN (08:24)
[2018-02-25] MEDS ORDERED: Sodium Chloride 0.9% 1,000 ML IV SCH (08:30)
[2018-02-25] MEDS ORDERED: Famotidine 20 MG TAB PO SCH (09:00)
[2018-02-25] MEDS ORDERED: Docusate 100 MG CAP PO SCH (09:00)
[2018-02-25 15:56] VITALS: BP 113/58; TEMP 98.4
[2018-02-25] MEDS ORDERED: Dronedarone HCl 400 MG TAB PO SCH (17:00)
[2018-02-25] MEDS ORDERED: INSULIN GLARGINE HUM REC ANLOG SQ SCH (21:00)
[2018-02-25] MEDS ORDERED: Insulin Glargine 51 UNITS in Pre-Filled Syringe 1 EACH SC SCH (21:00)
[2018-02-25] MEDS ORDERED: Atorvastatin Calcium 20 MG TAB PO SCH (21:00)
--- NOTE | 2018-03-01 15:28 | EKG ---
Test Reason : Blood Pressure : / mmHG Vent. Rate : 097 BPM Atrial Rate : 093 BPM P-R Int : 000 ms QRS Dur : 086 ms QT Int : 328 ms P-R-T Axes : 000 074 084 degrees QTc Int : 416 ms Atrial fibrillation No STEMI Abnormal ECG Confirmed by DOMINIQUE COLLIER M.D. ([id number]), business editor WARNER PERALTA ([id number]) on 03/01/2018 3:28:07 PM Referred By: Confirmed By:DOMINIQUE COLLIER M.D.
--- NOTE | 2018-03-01 15:28 | EKG ---
Test Reason : TACHY Blood Pressure : / mmHG Vent. Rate : 135 BPM Atrial Rate : 119 BPM P-R Int : 000 ms QRS Dur : 076 ms QT Int : 294 ms P-R-T Axes : 000 070 -18 degrees QTc Int : 441 ms Atrial fibrillation with rapid ventricular response with supply demand ischemia Abnormal QRS-T angle, consider primary T wave abnormality Abnormal ECG Confirmed by DOMINIQUE COLLIER M.D. ([id number]), material expeditor WARNER PERALTA ([id number]) on 03/01/2018 3:27:41 PM Referred By: SCOOBY Confirmed By:DOMINIQUE COLLIER M.D.
--- NOTE | 2018-03-19 15:05 | HP ---
HISTORY OF PRESENT ILLNESS: This is an 78-year-old gentleman with a history of paroxysmal atrial fibrillation, presented with rapid palpitations and dyspnea. The patient has a previous history of coronary artery disease, who had previously undergone PTCA and stent placement. The patient had a long history of atrial fibrillation, and has undergone three separate ablations for paroxysmal atrial fibrillations. He states he also has undergone multiple cardioversions. The patient presented to the emergency room with rapid palpitations and dyspnea. He was noted to be in a rapid irregular heart rhythm. The patient was recently placed on Eliquis for paroxysmal atrial fibrillation. He developed bright red blood per rectum. This medication was discontinued several days ago. The patient denies having any present palpitations or chest discomfort. PAST MEDICAL HISTORY: Significant for; 1. Atrial fibrillation. 2. Coronary artery disease. 3. Diabetes mellitus. 4. Dyslipidemia. 5. Obesity. 6. History of GI ulcers. PAST SURGICAL HISTORY: He has had tonsillectomy, appendectomy, femoral neck surgery. SOCIAL HISTORY: Nonsmoker. MEDICATIONS ON ADMISSION: Included and he took; 1. Ambien 5 at bedtime. 2. Colace 100 daily. 3. Lasix 40 b.i.d. 4. Coreg 3.125 b.i.d. 5. Lipitor 20 at bedtime. 6. Metformin 1000 b.i.d. 7. Onglyza 5 daily. 8. K-Dur 20 daily. 9. Prilosec 20 b.i.d. 10. Lisinopril 20 daily. 11. Insulin. ALLERGIES: HE IS ALLERGIC TO CIPROFLOXACIN. FAMILY HISTORY: No strong family history of heart disease. REVIEW OF SYSTEMS: Ten-point system, otherwise unremarkable except for bright red blood per rectum, which has resolved. PHYSICAL EXAMINATION: GENERAL: Obese gentleman, no acute distress. VITAL SIGNS: Blood pressure 113/59. NECK: No jugular venous distention. LUNGS: Clear to auscultation. HEART: Regular rate and rhythm. Normal S1, S2. ABDOMEN: Distended. EXTREMITIES: Show trace edema. SKIN: Warm and dry. NEUROLOGIC: Nonfocal. LABORATORY DATA: White blood cell count 8.6, hemoglobin 12.4, hematocrit 40.6, and platelet 106. Sodium was 139, potassium 4.5, chloride 104, bicarbonate 26, BUN 15, creatinine is 1.0, and his glucose is 77. BNP was 116. His EKG revealed him to have rapid atrial fibrillation with a nonspecific ST abnormality. IMPRESSION: 1. Recurrent paroxysmal atrial fibrillation. 2. History of atrial fibrillation ablation x3. 3. History of percutaneous transluminal coronary angioplasty and stent placement. 4. Diabetes mellitus. 5. Sleep apnea. 6. History of GI hemorrhage with a recent bleed on Eliquis. 7. Obesity. This gentleman presents with symptomatic atrial fibrillation. He had a recent GI bleed and cannot be placed on Eliquis. The patient needs to be considered for a Watchman device since he may not be able to be anticoagulated. We will place him on Multaq since he has a history of coronary artery disease. We will monitor this patient with you through his hospitalization. We will obtain EP evaluation. Job ID: [id number]
== END 2018-02-25 16:56 | disposition home or self-care (01) ==
LOC: ERS 15:54 → 2SW 19:19
PROVIDERS: ADMIT Internal Medicine; ATTEND Internal Medicine
DX: I48.0 Paroxysmal atrial fibrillation (principal); I25.10 Atherosclerotic heart disease of native coronary artery without angina pectoris; E11.9 Type 2 diabetes mellitus without complications; E78.5 Hyperlipidemia, unspecified; G47.30 Sleep apnea, unspecified; E66.9 Obesity, unspecified; Z68.35 Body mass index [BMI] 35.0-35.9, adult; Z79.4 Long term (current) use of insulin; Z79.899 Other long term (current) drug therapy; Z88.1 Allergy status to other antibiotic agents; Z95.5 Presence of coronary angioplasty implant and graft; Z98.890 Other specified postprocedural states
CPT/HCPCS: 71045; 80053; 82962; 83735; 83880; 84484 ×2; 85025; 93005; 96365; 96366 ×2; 96376; 97116; 97139; 99285; G0378 ×2; G8978; G8979; G8980; 36415; 36416; 96374; J7050

== ENCOUNTER 2018-06-25 11:19 | Outpatient (CLI) | payer MEDICARE ==
[2018-06-25 13:22] LABS: #Eosinphils 0.4 thou/uL (0.0-0.7); #Lymphocytes 1.7 thou/uL (1.20-3.40); #Monocytes 0.9 thou/uL (0.11-0.59); #Neutrophils 5.6 thou/uL (1.40-6.50); %Basophils 0.2 % (0.0-1.0); %Eosinophils 4.6 % (0.0-10.0); %Lymphocytes 19.8 % (21.0-51.0); %Monocytes 10.8 % (0.0-10.0); %Neutrophils 64.6 % (42.0-75.0); Hemoglobin 11.3 g/dL (14.0-18.0); Mean Corpuscular HGB CONC 30.2 g/dL (32.0-36.0); Mean Corpuscular Volume 72.7 fL (78.0-98.0); Mean Platelet Volume 11.1 fL (7.4-10.4); Platelet Count 163 thou/uL (130-400); Red Blood Cell (RBC) Count 5.14 mill/uL (4.70-6.10); White Blood Cell (WBC) Count 8.6 thou/uL (4.8-10.8)
[2018-06-25 13:35] LABS: Anion Gap 15 mmol/L (10-20); BUN (Urea Nitrogen) 26 mg/dL (8.4-25.7); Calc. Creatinine Clearance 0 mL/min (70-130); Calcium 9.3 mg/dL (7.8-10.44); Carbon Dioxide 28 mmol/L (23-31); Chloride 104 mmol/L (98-107); Estimated GFR-MDRD 38; Potassium 5.1 mmol/L (3.5-5.1); Sodium 142 mmol/L (136-145)
[2018-06-25 13:37] LABS: INR-International Normal Ratio 1.1; PTT 30.6 SEC (22.9-36.1); Prothrombin Time 14.7 SEC (12.0-14.7)
[2018-06-25 13:58] LABS: Glucose 58 mg/dL (83-110)
[2018-06-25 14:15] LABS: Anisocytosis SLIGHT = 6-15 cells (100X) (0-5/hpf); Hypochromia SLIGHT = 6-15 cells (100X) (0-5/hpf); Large Platelets SLIGHT; MDiff Complete? YES; Microcytosis SLIGHT = 6-15 cells (100X) (0-5/hpf); Ovalocytes SLIGHT = 2-5 cells (100X) (0-1/hpf); Platelet Morphology Comment Appears Adequate; Polychromasia SLIGHT = 2-3 cells (100X) (0-2/hpf)
== END 2018-06-25 11:20 | disposition home or self-care (01) ==
LOC: LABBT 11:19
PROVIDERS: ATTEND Internal Medicine Cardiovascular Disease
DX: Z01.812 Encounter for preprocedural laboratory examination (principal); I48.91 Unspecified atrial fibrillation
CPT/HCPCS: 80048; 85025; 85610; 85730

== ENCOUNTER 2018-06-28 07:52 | Day surgery (SDC) | payer MEDICARE ==
[2018-06-25 11:48] VITALS: BMI 36.3
[2018-06-28] MEDS ORDERED: PROPOFOL 20 ML ONE (09:13)
[2018-06-28] MEDS ORDERED: Lidocaine 1% PF 5 ML VIAL ONE (15:43)
[2018-06-28] MEDS ORDERED: PROPOFOL 200 MG/20 ML VIAL ONE (15:43)
--- NOTE | 2018-07-17 19:37 | ECHO ---
DATE OF SERVICE: 06/28/18 The Anesthesiology department provided with sedation for the patient. Please see their notes for det ails. After adequate sedation was achieved, transesophageal probe was inserted into the mouth and into the esophagus. Multiplanar views were then obtained. Left ventricle appears to be normal size with normal LV systolic function. Estimated EF at 50-55%. Mitral valve is structurally normal. There is mild to moderate MR. Left atrial appendage has a Watchman device in very good position. There appears to be a small leak a round the device. Multiple views of the Watchman device were done and confirmed the findings. Very go od position and in stable position but a small leak around the device. Aortic valve is structurally normal. It has three cusps. No stenosis or regurgitation. The left atrium is mildly dilated. Right atrium is normal size. The interatrial septum appears to be intact. The pulmonary valve seems structurally normal. Tricuspid valve is structurally normal. Thoracic aorta has mild atherosclerotic disease, grade II/V. CONCLUSIONS: 1. Normal systolic function, EF at 50-55%. 2. Mild to moderate MR. 3. Aortic valve sclerosis. Normal anatomy. No stenosis or regurgitation. 4. Mild TR. 5. Grade II/V atherosclerotic disease of the thoracic aorta. 6. The Watchman device in the left atrial appendage. Very good position and stable with a small leak around device.
== END 2018-06-28 11:05 | disposition home or self-care (01) ==
LOC: CCL 07:52
PROVIDERS: ATTEND Internal Medicine Cardiovascular Disease
PROC: B24BZZ4 Ultrasonography of Heart with Aorta, Transesophageal (ICD-10-PCS; principal; 2018-06-28)
DX: I35.0 Nonrheumatic aortic (valve) stenosis (principal); I70.0 Atherosclerosis of aorta; I25.10 Atherosclerotic heart disease of native coronary artery without angina pectoris; I10 Essential (primary) hypertension; E78.5 Hyperlipidemia, unspecified; E11.9 Type 2 diabetes mellitus without complications; I48.91 Unspecified atrial fibrillation; Z79.01 Long term (current) use of anticoagulants; Z79.4 Long term (current) use of insulin; Z79.899 Other long term (current) drug therapy; Z88.1 Allergy status to other antibiotic agents; Z95.5 Presence of coronary angioplasty implant and graft; Z95.818 Presence of other cardiac implants and grafts
CPT/HCPCS: 93312; J2001; J2704

== ENCOUNTER 2018-08-09 07:13 | Inpatient (IN) | payer BC, MEDICARE ==
[2018-08-09] MEDS ORDERED: Metoprolol Tartrate 5 MG/5 ML VIAL ONE (07:41)
[2018-08-09 07:44] LABS: #Eosinphils 0.4 thou/uL (0.0-0.7); #Lymphocytes 1.1 thou/uL (1.20-3.40); #Monocytes 0.8 thou/uL (0.11-0.59); #Neutrophils 5.7 thou/uL (1.40-6.50); %Basophils 0.4 % (0.0-1.0); %Eosinophils 4.7 % (0.0-10.0); %Lymphocytes 13.4 % (21.0-51.0); %Monocytes 10.1 % (0.0-10.0); %Neutrophils 71.3 % (42.0-75.0); Hemoglobin 11.5 g/dL (14.0-18.0); Mean Corpuscular HGB CONC 30.6 g/dL (32.0-36.0); Mean Corpuscular Hemoglobin 22.1 pg (27.0-31.0); Mean Platelet Volume 10.4 fL (7.4-10.4); Platelet Count 184 thou/uL (130-400); RBC Distribution Width 16.6 % (11.5-14.5); Red Blood Cell (RBC) Count 5.21 mill/uL (4.70-6.10)
--- NOTE | 2018-08-09 07:52 | RAD ---
Exam: Chest one view HISTORY:Chest pain Comparison: 02/24/2018 FINDINGS: Lungs: Bilateral interstitial prominence and perihilar alveolar opacities Cardiac silhouette:Enlarged Pulmonary vessels: Engorged Pleural Spaces: Mild pleural-based density at the inferior right chest Pneumothorax: None Osseous abnormalities: None of acuity. IMPRESSION: Decompensated CHF is favored, given radiographic appearance. Recommend imaging follow-up to confirm resolution.
[2018-08-09 08:07] LABS: ALT (SGPT) 11 U/L (8-55); AST (SGOT) 13 U/L (5-34); Albumin 3.9 g/dL (3.4-4.8); Alkaline Phosphatase 114 U/L (40-150); Anion Gap 16 mmol/L (10-20); BUN (Urea Nitrogen) 27 mg/dL (8.4-25.7); Bilirubin, Total 0.4 mg/dL (0.2-1.2); Calc. Creatinine Clearance 0 mL/min (70-130); Calcium 9.1 mg/dL (7.8-10.44); Carbon Dioxide 26 mmol/L (23-31); Chloride 102 mmol/L (98-107); Estimated GFR-MDRD 35; Globulin 2.9 g/dL (2.4-3.5); Glucose 97 mg/dL (83-110); Potassium 3.9 mmol/L (3.5-5.1); Protein, Total 6.8 g/dL (5.8-8.1); Sodium 140 mmol/L (136-145)
[2018-08-09 08:30] LABS: CKMB 2.7 ng/mL (0-6.6)
[2018-08-09] MEDS ORDERED: Ondansetron PF 4 MG/2 ML Vial IVP PRN (10:53)
[2018-08-09] MEDS ORDERED: Ondansetron ODT 4 MG TAB PO PRN (10:53)
[2018-08-09] MEDS ORDERED: Acetaminophen 325 MG TAB PO PRN (10:54)
[2018-08-09 11:15] LABS: Troponin I 0.136 ng/mL (< 0.028)
[2018-08-09 12:54] VITALS: BMI 37.0
[2018-08-09] MEDS ORDERED: Furosemide 40 MG/4 ML VIAL SLOW IVP SCH (13:45)
[2018-08-09 13:51] LABS: Troponin I 0.117 ng/mL (< 0.028)
--- NOTE | 2018-08-09 16:41 | CON ---
DATE OF CONSULTATION: 08/09/2018 REASON FOR CONSULTATION: Atrial fibrillation RVR and heart failure. HISTORY OF PRESENT ILLNESS: Mr. Hurst is a pleasant 78-year-old white gentleman, who comes to the hospital for increased heart rate and mild shortness of breath. He is very well known to myself. He has a history of atrial fibrillation in the past. He has had cardioversions in the past as well as 3 ablations. The last time he required a cardioversion was in 2017. He eventually had a GI bleed on full anticoagulation, so he had a Watchman device placed a few months ago and recently LUKASZ was done that found he has leakage around the device. He otherwise has remained on Eliquis because of this. He currently denies any chest pain, tightness, or pressure. He was at home. He felt a little lightheaded, felt palpitations and short-winded. He checked his O2 saturation and the monitor showed sats of 89% and heart rate in the 130s range, so he decided to come in for this. He received a dose of IV metoprolol as well as IV Lasix. His heart rate is in the 90s to low 100s, and he is already diuresed and his breathing is already better. PAST MEDICAL HISTORY: 1. Atrial fibrillation. 2. Coronary artery disease. 3. Type 2 diabetes. 4. Depression. 5. Obstructive sleep apnea. 6. He had stent placed back in 2007 in the setting of an MS. PAST SURGICAL HISTORY: 1. Right femur fracture. 2. Appendectomy. 3. Tonsillectomy. 4. Cardiac ablation x3. 5. Cardioversion several times in the past about 14 times total. OUTPATIENT MEDICATIONS: Include: 1. Multaq 400 mg b.i.d. 2. Eliquis 2.5 mg b.i.d. 3. Ambien daily. 4. Potassium chloride 20 mEq a day. 5. Omeprazole 20 mg b.i.d. 6. Lantus 51 units subcu q.p.m. 7. Lasix b.i.d. 8. Atorvastatin 20 mg at bedtime. 9. Saxagliptin (Onglyza) daily. 10. Lisinopril 20 mg a day. 11. Docusate. 12. Diltiazem 180 mg a day. 13. Metformin 1000 mg b.i.d. FAMILY HISTORY: Noncontributory. ALLERGIES: CIPRO. SOCIAL HISTORY: No alcohol, tobacco, or drugs. REVIEW OF SYSTEMS: A 12-point review of systems was done and was all negative unless stated in the history of present illness. PHYSICAL EXAMINATION: VITAL SIGNS: Temperature 97.8, pulse 82, respiratory rate 16, saturating 97% on room air, and blood pressure 113/62. GENERAL: Awake, alert, and oriented x3, in no distress. HEENT: Normocephalic and atraumatic. NECK: Supple. LUNGS: Reduced breath sounds bilaterally. CARDIOVASCULAR: S1 and S2, regularly regular. Heart rate in the 90s to low 100s. ABDOMEN: Soft. Positive bowel sounds. EXTREMITIES: 1+ edema. SKIN: Warm and dry. LABORATORY DATA: Laboratory work was reviewed. CBC with a white count of 8, hemoglobin of 11.5, hematocrit 37, platelet count 184. His hemoglobin is at his baseline. Chemistry is unremarkable except for BUN of 27, creatinine 1.85. Troponin is 0.16, 0.13, and 0.11. BNP was 190. Albumin of 3.9. EKG was reviewed. Recent transesophageal echo showed normal LV function with Watchman device as well seated, which is small leak around device. ASSESSMENT: 1. Acute on chronic diastolic heart failure. 2. Atrial fibrillation with rapid ventricular response. PLAN: 1. We will continue rate control for now. 2. If he does not convert on his own in the next 24 to 48 hours, he will be a candidate for repeat cardioversion. 3. We will get EP recommendations as far as to see if there is any need to change antiarrhythmics as he is on Multaq and he has recurred with his atrial fibrillation. 4. Continue Eliquis for stroke prophylaxis. Thank you for letting me to participate in the care of your patient. We will follow. Job ID: [id number]
[2018-08-09] MEDS: metFORMIN 500 MG TAB PO SCH (18:32)
[2018-08-09] MEDS ORDERED: HumaLOG 300 UNITS/3 ML VIAL SC PRN (20:19)
[2018-08-09] MEDS ORDERED: Dextrose 50% Abboject 50 ML SYRINGE SLOW IVP PRN (20:19)
[2018-08-09] MEDS ORDERED: Dextrose 5% in Water 1,000 ML IV PRN (20:19)
[2018-08-09] MEDS: Atorvastatin Calcium 20 MG TAB PO SCH (20:58)
[2018-08-09] MEDS: Apixaban 2.5 MG TAB PO SCH (20:58)
[2018-08-09] MEDS: Lisinopril 20 MG TAB PO SCH (20:59)
[2018-08-09] MEDS ORDERED: Apixaban 2.5 MG TAB PO SCH (21:00)
--- NOTE | 2018-08-10 01:50 | HP ---
CHIEF COMPLAINT: Shortness of breath and elevated heart rate. HISTORY OF PRESENT ILLNESS: The patient is a very pleasant 78-year-old male with a history of atrial fibrillation, has undergone multiple cardioversions and 3 ablations, has a history of CAD and has a history of diabetes who presents to the hospital with shortness of breath and elevated heart rate. The patient stated that for the past 2 weeks, he has been noticing worsening shortness of breath on exertion. He also was positive for proximal nocturnal dyspnea for the past couple of days. He also has been noticing some ankle swelling for the past couple of days. The patient this morning stated that he woke up and felt very lightheaded. At this time, he checked his pulse and his pulse was 140-150 and his oxygen saturations were low, so he came into the ER for further evaluation. He denies any chest pain or chest pressure. The patient has stated that he has been feeling fatigued for the past few weeks now. The patient does have a history of status post Watchman, however, there is a leak according to the family and according to the echocardiogram. The patient's family also states that his who . Her birthday was this week, which has made the patient been feeling very down and stressed. Also in the ED, he was found to have a heart rate of 150. He was in atrial fibrillation with rapid ventricular response. At this time, he was given Lopressor, which controlled his heart rate without any issues. PAST MEDICAL HISTORY: 1. Diabetes type 2. 2. CAD stents x4. 3. Atrial fibrillation. He has had multiple cardioversions, multiple ablations. 4. Hypertension. 5. GERD. 6. Hypercholesterolemia. PAST SURGICAL HISTORY: He has had a Watchman procedure 2 months ago. He has had a right femoral fracture repair. He has also had an appendectomy. SOCIAL HISTORY: Denies any smoking, any alcohol use or any drug use. He is a full code. Lives alone. 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 FAMILY HISTORY: History of colon cancer in the family. REVIEW OF SYSTEMS: All negative except for the ones mentioned above in the HPI. ALLERGIES: HE IS ALLERGIC TO CIPRO. MEDICATIONS: He is on multiple medications: 1. He is on Eliquis 2.5 mg b.i.d. 2. He is on Lasix 40 mg daily. 3. He is also on atorvastatin 20 mg daily. 4. Colace 100 mg daily. 5. He is on diltiazem 180 mg daily. 6. Lisinopril 20 mg daily. 7. Metformin 1000 mg b.i.d. PHYSICAL EXAMINATION: VITAL SIGNS: Temperature 98.0, pulse 97, respirations 16, O2 saturations 95% on room air, blood pressure 128/83. GENERAL: He is awake, alert, and oriented x3. Does not appear to be in any distress. HEENT: Normocephalic, atraumatic. No lymphadenopathy noted. Pupils are equal and reactive to light. CV: S1 and S2 present. No murmurs, rubs, or gallops. LUNGS: Clear to auscultation. No rhonchi or wheezes noted. ABDOMEN: Obese. Bowel sounds are present x2. No pain upon palpation. EXTREMITIES: Mild edema. Pedal pulses present x2. NEUROVASCULAR: There were no focal deficits noted. SKIN: No cuts, lesions or bruises noted. LABORATORY RESULTS: As of the following; WBC of 8.0, hemoglobin of 11.5, hematocrit of 37.6, platelets of 184. Chemistries; sodium of 140, potassium of 3.9, BUN of 27, creatinine of 1.85. His troponins are elevated mildly. His BNP is 190. ASSESSMENT AND PLAN: The patient is a very pleasant 78-year-old male who presents to the hospital with complaints of shortness of breath: 1. Atrial fibrillation with rapid ventricular response, which was controlled with some Lopressor. I will continue his home medications. I will also consult Cardiology and continue to monitor and also give him a dose of Lasix. He appears to be in some mild heart failure. 2. Acute on chronic diastolic heart failure. I will give him some Lasix. We will also continue his home medications. Cardiology has been consulted. 3. Mild chronic kidney disease stage 3. We will continue to monitor. 4. Mild elevated troponins could be secondary to demand. We will continue to monitor. 5. History of diabetes. We will continue his home medication and check Accu-Cheks a.c. and bedtime. 6. Deep venous thrombosis prophylaxis. The patient is already on Eliquis. According to the patient, he has had a history of a bleed in the past. According to him, he is very sensitive to blood thinners and aspirin, just of note. Job ID: [id number]
[2018-08-10] MEDS ORDERED: Furosemide 40 MG/4 ML VIAL SLOW IVP SCH (09:00)
[2018-08-10] MEDS: Apixaban 2.5 MG TAB PO SCH ×2 (09:06→20:28)
[2018-08-10] MEDS: Alogliptin 25 MG TAB PO SCH (09:06)
[2018-08-10] MEDS: metFORMIN 500 MG TAB PO SCH ×2 (09:07→17:29)
[2018-08-10] MEDS: Docusate 100 MG CAP PO SCH (09:07)
[2018-08-10] MEDS ORDERED: Digoxin 0.5 MG/2 ML AMP ONE (09:43)
[2018-08-10] MEDS ORDERED: Digoxin 0.5 MG/2 ML AMP SLOW IVP SCH (10:00)
[2018-08-10 10:13] LABS: Anion Gap 16 mmol/L (10-20); BUN (Urea Nitrogen) 23 mg/dL (8.4-25.7); Calc. Creatinine Clearance 71 mL/min (70-130); Calcium 9.5 mg/dL (7.8-10.44); Carbon Dioxide 22 mmol/L (23-31); Chloride 104 mmol/L (98-107); Estimated GFR-MDRD 46; Glucose 111 mg/dL (83-110); Potassium 4.3 mmol/L (3.5-5.1); Sodium 138 mmol/L (136-145)
--- NOTE | 2018-08-10 13:29 | PDOC.PN ---
- Subjective Encounter Start Date: 08/10/18 Encounter Start Time: 11:15 Subjective: pt up in bed was in afib rvr - Objective Vital Signs & Weight: Vital Signs (12 hours) Temp Pulse Resp BP Pulse Ox 08/10/18 12:00 98.1 F 99 18 125/82 97 08/10/18 09:28 122 H 08/10/18 08:00 97.6 F 99 20 125/65 94 L 08/10/18 04:00 97.9 F 104 H 20 129/88 94 L Weight Weight 276 lb I&O: 08/09/18 08/10/18 08/11/18 06:59 06:59 06:59 Intake Total 890 Output Total 2050 Balance -1160 Result Diagrams: 08/09/18 07:33 08/10/18 09:42 Additional Labs: Accuchecks 08/10/18 08/10/18 10:49 04:00 POC Glucose 177 H 101 Phys Exam - Physical Examination Neck: no nodes, no JVD, supple, full ROM Respiratory: no wheezing, no rales, no rhonchi, wheezing present, clear to auscultation bilateral Cardiovascular: RRR, no significant murmur, no rub, gallop, irregular Gastrointestinal: soft, non-tender, no distention, positive bowel sounds Dx/Plan (1) Atrial fibrillation with RVR Code(s): I48.91 - UNSPECIFIED ATRIAL FIBRILLATION Status: Acute Comment: pt has had watchman procedure now has a leak. (2) 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 (3) DM2 (diabetes mellitus, type 2) Status: Chronic Qualifiers: - Plan will continue eliquis for now, will continue his home meds -: EP consulted. * . Review of Systems - Review of Systems Respiratory: Shortness of Breath Cardiovascular: negative: chest pain, palpitations, orthopnea, paroxysmal nocturnal dyspnea, edema, light headedness, other Gastrointestinal: negative: Nausea, Vomiting, Abdominal Pain, Diarrhea, Constipation, Melena, Hematochezia, Other - Medications/Allergies Allergies/Adverse Reactions: Allergies Allergy/AdvReac Type Severity Reaction Status Date / Time ciprofloxacin [From Cipro] Allergy Hives Verified 08/09/18 13:03 Medications: Current Medications Alogliptin Benzoate (Alogliptin) 25 mg PO DAILY [facility] Apixaban (Eliquis) 2.5 mg PO BID [facility] Last Admin: 08/10/18 09:06 Dose: 2.5 mg Atorvastatin Calcium (Lipitor) 20 mg PO [facility] Last Admin: 08/09/18 20:58 Dose: 20 mg Dextrose/Water (Dextrose 50%) 25 gm SLOW IVP PRN PRN PRN Reason: Hypoglycemia Diltiazem HCl (Cardizem Cd) 180 mg PO DAILY [facility] Last Admin: 08/10/18 09:07 Dose: 180 mg Docusate Sodium (Colace) 100 mg PO DAILY [facility] Last Admin: 08/10/18 09:07 Dose: 100 mg Furosemide (Lasix) 40 mg SLOW IVP DAILY [facility] Stop: 08/10/18 23:59 Last Admin: 08/10/18 09:07 Dose: 40 mg Glucagon (Glucagon) 1 mg IM PRN PRN PRN Reason: Hypoglycemia Dextrose/Water (D5w) 1,000 mls @ 0 mls/hr IV .Q0M PRN PRN Reason: Hypoglycemia Insulin Human Lispro (Humalog) 0 units SC .MILD SLIDING SCALE PRN PRN Reason: Mild Correctional Scale Lisinopril (Zestril) 20 mg PO [facility] Last Admin: 08/09/18 20:59 Dose: 20 mg Metformin HCl (Glucophage) 1,000 mg PO BID[facility] Last Admin: 08/10/18 09:07 Dose: 1,000 mg Sodium Chloride (Flush - Normal Saline) 10 ml IVF Q12HR [facility] Last Admin: 08/10/18 09:07 Dose: 10 ml Sodium Chloride (Flush - Normal Saline) 10 ml IVF PRN PRN PRN Reason: Saline Flush
--- NOTE | 2018-08-10 18:20 | PDOC.CTH ---
Cardiology Progress Note - Subjective The pt seen and examined. No overnight events. No cardiac complaints. - Objective Vital Signs Temp Pulse Resp BP Pulse Ox 08/10/18 16:00 97.8 F 80 13 123/71 97 08/10/18 12:00 98.1 F 99 18 125/82 97 08/10/18 09:28 122 H 08/10/18 08:00 97.6 F 99 20 125/65 94 L Weight 276 lb 08/09/18 08/10/18 08/11/18 06:59 06:59 06:59 Intake Total 890 480 Output Total 2050 200 Balance -1160 280 - Physical Examination General/Neuro: alert & oriented x3 Neck: no JVD present Lungs: CTA Heart: RRR Abdomen: soft - Telemetry Telemetry Rhythm: Afib 90-100s - Labs Result Diagrams: 08/09/18 07:33 08/10/18 09:42 Troponin/CKMB CK-MB (CK-2) 2.7 ng/mL (0-6.6) 08/09/18 07:33 Troponin I 0.117 ng/mL (< 0.028) H 08/09/18 13:02 - Assessment/Plan 1. Afib with RVR - well controlled HR with Diltiazem 180mg qd and Digoxin 0.5mg IV push x1 this AM; On Eliquis 2.5mg BID; will start Coreg 3.125mg BID from [facility]; -: EP consult; possible DCCV on Sunday if cont Afib. 2. CAD with hx of stent placement in 2007 - Not on ASA or Plavix due to Eliquis and Anemia 3. DM type 2 - 4. [facility] MAR reviewed Pt. seen and eval. by me. I agree with the A/P by the SCHOOL SUPERVISOR .Chest clear. Irreg/ irreg. gjmays Review of Systems - Review of Systems Constitutional: reports: no symptoms reported EENTM: reports: no symptoms reported Respiratory: reports: no symptoms reported Cardiac (ROS): reports: no symptoms reported ABD/GI: reports: no symptoms reported : reports: no symptoms reported
[2018-08-10] MEDS: Lisinopril 20 MG TAB PO SCH (20:27)
[2018-08-10] MEDS: Atorvastatin Calcium 20 MG TAB PO SCH (20:27)
[2018-08-10] MEDS ORDERED: Carvedilol 3.125 MG TAB PO SCH (21:00)
[2018-08-11 06:15] LABS: Anion Gap 13 mmol/L (10-20); BUN (Urea Nitrogen) 24 mg/dL (8.4-25.7); Calc. Creatinine Clearance 81 mL/min (70-130); Calcium 8.8 mg/dL (7.8-10.44); Carbon Dioxide 23 mmol/L (23-31); Chloride 105 mmol/L (98-107); Estimated GFR-MDRD 54; Glucose 112 mg/dL (83-110); Potassium 4.2 mmol/L (3.5-5.1); Sodium 137 mmol/L (136-145)
[2018-08-11] MEDS: Apixaban 2.5 MG TAB PO SCH ×2 (08:31→21:48)
[2018-08-11] MEDS: metFORMIN 500 MG TAB PO SCH ×2 (08:31→17:26)
[2018-08-11] MEDS: Carvedilol 3.125 MG TAB PO SCH ×2 (08:31→17:25)
[2018-08-11] MEDS: Alogliptin 25 MG TAB PO SCH (08:32)
[2018-08-11] MEDS: Docusate 100 MG CAP PO SCH (08:33)
--- NOTE | 2018-08-11 08:43 | PDOC.CTH ---
Cardiology Progress Note - Subjective The pt seen and examined. No overnight events. No cardiac complaints. - Objective Vital Signs Temp Pulse Resp BP BP Pulse Ox 08/11/18 07:36 97.6 F 80 24 H 112/70 92 L 08/11/18 03:55 98.7 F 79 20 132/65 95 08/10/18 22:50 97.4 F L 76 20 110/59 L 97 Weight 275 lb 9.6 oz 08/10/18 08/11/18 08/12/18 06:59 06:59 06:59 Intake Total 890 1320 Output Total 2050 1500 Balance -1160 -180 - Physical Examination General/Neuro: alert & oriented x3 Neck: no JVD present Lungs: CTA Heart: other: (irregular) Abdomen: soft Extremities: other: (No edema) - Telemetry Telemetry Rhythm: Afib HR 70-80s - Labs Result Diagrams: 08/09/18 07:33 08/11/18 04:22 Troponin/CKMB CK-MB (CK-2) 2.7 ng/mL (0-6.6) 08/09/18 07:33 Troponin I 0.117 ng/mL (< 0.028) H 08/09/18 13:02 - Assessment/Plan 1. Afib with RVR - well controlled HR with Diltiazem 180mg qd and Coreg 3.125mg BID; On Eliquis 2.5mg BID; EP consult; possible DCCV on Sunday if cont Afib. 2. CAD with hx of stent placement in 2007 - Not on ASA or Plavix due to Eliquis and Anemia 3. DM type 2 4. HTN - well controlled with current med 5. H[facility]ILTON with Cpap at [facility] reviewed Pt. seen and eval. by me. I agree with the A/P above. HR did increase again this AM. Will continue to load with digoxin.Keep NPO after MN for possible cardioversion. Review of Systems - Review of Systems Constitutional: reports: no symptoms reported EENTM: reports: no symptoms reported Respiratory: reports: no symptoms reported Cardiac (ROS): reports: no symptoms reported ABD/GI: reports: no symptoms reported : reports: no symptoms reported Musculoskeletal: reports: no symptoms reported
[2018-08-11] MEDS ORDERED: Digoxin 0.5 MG/2 ML AMP SLOW IVP SCH (09:15)
--- NOTE | 2018-08-11 15:38 | PDOC.PN ---
- Subjective Encounter Start Date: 08/11/18 Encounter Start Time: 15:15 Subjective: f/u for recurrent A-fib RVR on Diltiazem, Digoxin, Coreg and Eliquis. -: Plans for DCCV in am. No new complaints. - Objective MAR Reviewed: Yes Vital Signs & Weight: Vital Signs (12 hours) Temp Pulse Resp BP Pulse Ox 08/11/18 11:09 97.7 F 86 24 H 111/59 L 96 08/11/18 09:45 80 08/11/18 07:36 97.6 F 80 24 H 112/70 92 L 08/11/18 03:55 98.7 F 79 20 132/65 95 Weight Weight 275 lb 9.6 oz I&O: 08/10/18 08/11/18 08/12/18 06:59 06:59 06:59 Intake Total 890 1320 Output Total 2050 1500 Balance -1160 -180 Result Diagrams: 08/09/18 07:33 08/11/18 04:22 Additional Labs: Accuchecks 08/11/18 08/10/18 08/10/18 11:13 20:32 16:16 POC Glucose 124 H 109 123 H Laboratory Tests 12/25/16 08/09/18 08/09/18 14:11 07:33 07:33 Creatinine 1.85 H B-Natriuretic Peptide 146.4 H 190.9 H TSH 3rd Generation 08/10/18 08/10/18 09:42 09:42 Creatinine 1.46 H B-Natriuretic Peptide TSH 3rd Generation 0.7458 EKG Reviewed by me: Yes (Tele - A-fib in 70's) Phys Exam - Physical Examination Constitutional: NAD HEENT: PERRLA, sclera anicteric, oral pharynx no lesions Neck: no nodes, no JVD, supple, full ROM Respiratory: no wheezing, no rales, no rhonchi, clear to auscultation bilateral S1, S2 Cardiovascular: no significant murmur, no rub, irregular Gastrointestinal: soft, non-tender, no distention, positive bowel sounds mild LE edema Musculoskeletal: pulses present Neurological: normal sensation, moves all 4 limbs Psychiatric: A&O x 3 Skin: normal turgor, cap refill <2 seconds Dx/Plan (1) Atrial fibrillation with RVR Code(s): I48.91 - UNSPECIFIED ATRIAL FIBRILLATION Status: Acute Comment: Recurrent, plan for DCCV in am, continue rate-control mgmt, Eliquis, resume Multaq (2) Chronic anticoagulation Code(s): Z79.01 - LONGTERM (CURRENT) USE OF ANTICOAGULANTS Status: Chronic Comment: Continue Eliquis 2.5mg BID (3) WILY (acute kidney injury) Code(s): N17.9 - ACUTE KIDNEY FAILURE, UNSPECIFIED Status: Acute Comment: Improved, avoid nephrotoxic agents and limit contrast, BMP in am (4) DM2 (diabetes mellitus, type 2) Status: Chronic Qualifiers: Comment: Resume home Glargine, ISS, ADA (5) CKD (chronic kidney disease), stage III Code(s): N18.3 - CHRONIC KIDNEY DISEASE, STAGE 3 (MODERATE) Status: Chronic Comment: Avoid nephrotoxic agents and limit contrast exposure, serial creatinine - Plan medical staff services manager, out of bed/ambulate, DVT proph w/SCDs Stable currently -: Continue Coreg, Diltiazem, Digoxin -: Resume Multaq -: Plan for DCCV in am -: NPO after MN * Convert to inpt status * AM lab: BMP, H/H
[2018-08-11] MEDS: Dronedarone HCl 400 MG TAB PO SCH (17:25)
[2018-08-11] MEDS ORDERED: Insulin Glargine 51 UNITS in Pre-Filled Syringe 1 EACH SC SCH (21:00)
[2018-08-11] MEDS ORDERED: INSULIN GLARGINE HUM REC ANLOG SQ SCH (21:00)
[2018-08-11] MEDS: Lisinopril 20 MG TAB PO SCH (21:48)
[2018-08-11] MEDS: Atorvastatin Calcium 20 MG TAB PO SCH (21:48)
[2018-08-12 05:48] LABS: Hemoglobin 11.1 g/dL (14.0-18.0); Platelet Count 174 thou/uL (130-400)
[2018-08-12 05:56] LABS: Anion Gap 13 mmol/L (10-20); BUN (Urea Nitrogen) 30 mg/dL (8.4-25.7); Calc. Creatinine Clearance 72 mL/min (70-130); Calcium 8.7 mg/dL (7.8-10.44); Carbon Dioxide 25 mmol/L (23-31); Chloride 104 mmol/L (98-107); Estimated GFR-MDRD 47; Glucose 112 mg/dL (83-110); Potassium 4.4 mmol/L (3.5-5.1); Sodium 138 mmol/L (136-145)
[2018-08-12] MEDS: Alogliptin 25 MG TAB PO SCH (08:55)
[2018-08-12] MEDS: metFORMIN 500 MG TAB PO SCH ×2 (08:55→16:45)
[2018-08-12] MEDS ORDERED: Potassium Chloride 20 MEQ TAB PO SCH (09:00)
[2018-08-12] MEDS: Carvedilol 3.125 MG TAB PO SCH ×2 (09:03→16:45)
[2018-08-12] MEDS: Apixaban 2.5 MG TAB PO SCH (09:04)
[2018-08-12] MEDS: Dronedarone HCl 400 MG TAB PO SCH ×2 (09:04→16:45)
[2018-08-12] MEDS: Docusate 100 MG CAP PO SCH (09:05)
--- NOTE | 2018-08-12 10:16 | OP ---
DATE OF PROCEDURE: 08/12/2018 PREPROCEDURE DIAGNOSIS: Atrial fibrillation with rapid ventricular response. PROCEDURE PERFORMED: Synchronized direct current cardioversion. SUMMARY: Mr. Hurst is a pleasant 78-year-old white gentleman, who comes to the outpatient area for planned cardioversion. He was sedated by the Anesthesiology Department. Please see their notes for details. After adequate sedation was achieved, one single synchronized cardioversion shock was delivered at 100 joules successfully converting him from AFib to sinus rhythm. He tolerated the procedure well. RECOMMENDATIONS: 1. Continue Eliquis and dronedarone. 2. May discharge home later today. Job ID: [id number]
[2018-08-12 16:42] VITALS: BP 112/57; TEMP 98
--- NOTE | 2018-08-13 01:47 | CON ---
DATE OF CONSULTATION: 08/12/2018 HISTORY OF PRESENT ILLNESS: I am seeing Mr. 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 His problems are: 1. Recurrent atrial arrhythmias. a. History of persistent atrial fibrillation prompting repeated left atrial ablation procedures in 2012, most recently in 2014. b. In sinus rhythm most of the time on Multaq with recurrent atrial flutter noted at this time. 2. History of left atrial appendage isolation and gastrointestinal bleed prompting Watchman device placement around April of this year. a. LUKASZ from 06/28/2018 shows small leak around the Watchman device, still on Eliquis. 3. History of preserved LVEF. 4. History of coronary artery disease with stent placement back in 2018 following SD. 5. History of obstructive sleep apnea. 6. Risk factors including type 2 diabetes and elevated BMI. ALLERGIES: CIPRO. MEDICATIONS: At home included lisinopril, furosemide, Lipitor, metformin, potassium, omeprazole, insulin, zolpidem, docusate, dronedarone 400 mg twice a day, apixaban, diltiazem, and Onglyza. SUBJECTIVE: Mr. Hurst was admitted with severe palpitations on the . He had rapid rates. Diltiazem and Coreg were used for rate control. Eventually, he underwent cardioversion this morning with Dr. Senior, currently maintaining sinus rhythm. With these, he had no significant chest pains, but the sensation of palpitation. He did not pass out. No stroke-like symptoms. No neurological deficits. No fever, chills, or cough and rest of 12-point system otherwise unremarkable. PAST MEDICAL HISTORY: As above. PAST SURGICAL HISTORY: Significant for right fibular fracture repair, appendectomy, tonsillectomy, cardiac ablation x3 and cardioversion in the past. SOCIAL HISTORY: The patient denies smoking, EtOH, or drug use. 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 FAMILY HISTORY: Not contributory. OBJECTIVE DATA: VITAL SIGNS: Blood pressure is 112/57, heart rate 67, respirations 18, temperature 98 degrees Fahrenheit. GENERAL: Alert and oriented man, in no apparent distress. NECK: Supple. Jugular veins not distended. CHEST: Coarse with crackles. HEART: Sounds are regular rate and rhythm. No murmur or gallop. ABDOMEN: Benign. Bowel sounds positive. EXTREMITIES: Lower extremities without edema, clubbing, or cyanosis. Pulses are adequate. NEUROLOGIC: The patient is nonfocal. MUSCULOSKELETAL: Without joint swelling or deformity. SKIN: Without rash. DATABASE: EKG is reviewed revealing atypical atrial flutter. There is variable AV conduction. LAB DATA: Initial troponin 0.16, 0.13, 0.11. BNP is 190. Initial BUN 27, creatinine 1.85, hemoglobin 11.5, platelet count is 184. ASSESSMENT AND PLAN: Mr. Hurst is a pleasant 78-year-old man with prior history of recurrent atrial arrhythmias. He has had paroxysmal atrial tachycardia in 2017, which was treated medically with Multaq. Now has recurrent atrial flutter. He has also Watchman device in place with some residual leak on last LUKASZ, but is still on anticoagulation with Eliquis. For now, I initiated and performed cardioversion. He is maintaining sinus rhythm. We discussed the less than 100% efficacy of Multaq what he is taking, but still it is reasonable drug for him to continue on. As this time, next choices are somewhat limited. Hence, the history of coronary artery disease, I would hold off on using class 1C agents. Also, amiodarone may not be most optimal, hence potential long-term side effect whether sotalol will be more effective than Multaq in suppressing his arrhythmias. On the other hand, also discussed potential option for repeat ablation procedure. This could especially be considered if he needs further coiling after repeat LUKASZ is performed in 3 months after his Watchman device is placed, which is scheduled in the near future. For now, we will plan to continue Multaq and Eliquis anticoagulation. We will see him back after his LUKASZ is performed for further planning. Job ID: [id number]
--- NOTE | 2018-08-13 01:58 | DIS ---
DATE OF ADMISSION: 08/09/2018 DATE OF DISCHARGE: 08/12/2018 PRIMARY CARE PROVIDER: Carlie Zaman MD DISCHARGE DIAGNOSES: 1. Atrial fibrillation with rapid ventricular response. 2. Acute on chronic diastolic heart failure, [place] [employer] stage III. CONSULTATIONS DURING THIS HOSPITALIZATION: Cardiology, Israel Senior MD CONDITION OF PATIENT ON THE DAY OF DISCHARGE: Stable. I assessed Mr. Hurst on the day of discharge. He denies any chest pain or shortness of breath. Vital signs are stable. S1 and S2 are heard, regular. Lungs are clear to auscultation bilaterally. DISCHARGE MEDICATIONS: 1. Apixaban 2.5 mg 2 times a day. 2. Atorvastatin 20 mg at bedtime. 3. Diltiazem 180 mg daily. 4. Docusate 100 mg daily. 5. Lasix 40 mg 2 times a day. 6. Lantus insulin 51 units every evening. 7. Lisinopril 20 mg at bedtime. 8. Metformin 1000 mg 2 times a day. 9. Omeprazole 20 mg 2 times a day. 10. Potassium chloride 20 mEq daily. 11. Saxagliptin 5 mg daily. 12. Zolpidem 5 mg at bedtime as needed. 13. Multaq 400 mg 2 times a day. 14. Coreg 3.125 mg 2 times a day. HOSPITAL COURSE: Mr. Hurst is a pleasant 78-year-old gentleman, who was admitted to [facility] on August 09, 2018, for atrial fibrillation with rapid ventricular response as well as CHF exacerbation. Please refer to Dr. Stoll's history and physical note dated August 09, 2018, for further details. He was treated with Cardizem drip. He was seen by Cardiology Service. He underwent electrical cardioversion on August 12, 2018, and has been cleared for discharge by Cardiology Service. The patient was started on Coreg 3.125 mg 2 times a day during this hospitalization. Many thanks for allowing me to participate in your patient's care. Please feel free to contact me with any questions or concerns. DISCHARGE DESTINATION: Home. TIME SPENT: Total amount of time spent coordinating this discharge: 32 minutes. Job ID: [id number]
== END 2018-08-12 19:04 | disposition home or self-care (01) | DRG 308 ==
LOC: ERS 07:13 → OBSVTOIN 08:45 → 2SW 08:45 → 2NO 08-11 17:45
PROVIDERS: ADMIT Internal Medicine; ATTEND Internal Medicine
PROC: 5A2204Z Restoration of Cardiac Rhythm, Single (ICD-10-PCS; principal; 2018-08-12)
DX: I48.91 Unspecified atrial fibrillation (principal); I50.33 Acute on chronic diastolic (congestive) heart failure; I13.0 Hypertensive heart and chronic kidney disease with heart failure and stage 1 through stage 4 chronic kidney disease, or unspecified chronic kidney disease; I24.8 Other forms of acute ischemic heart disease; J98.11 Atelectasis; N17.9 Acute kidney failure, unspecified; I25.10 Atherosclerotic heart disease of native coronary artery without angina pectoris; K21.9 Gastro-esophageal reflux disease without esophagitis; E78.00 Pure hypercholesterolemia, unspecified; N18.3 Chronic kidney disease, stage 3 (moderate); E11.22 Type 2 diabetes mellitus with diabetic chronic kidney disease; F32.9 Major depressive disorder, single episode, unspecified; G47.33 Obstructive sleep apnea (adult) (pediatric); D64.9 Anemia, unspecified; Z90.49 Acquired absence of other specified parts of digestive tract; Z88.1 Allergy status to other antibiotic agents; Z79.84 Long term (current) use of oral hypoglycemic drugs; Z90.89 Acquired absence of other organs; Z79.01 Long term (current) use of anticoagulants
CPT/HCPCS: 36415; 36416; 71045; 80048; 80053; 82553; 83880; 84443; 84484; 85014; 85018; 85025; 85049; 92960; 93005; 96374; J1160; J1825; J1940

== ENCOUNTER 2018-10-14 09:05 | Day surgery (SDC) | payer MEDICARE ==
[2018-10-14 10:31] LABS: #Eosinphils 0.3 thou/uL (0.0-0.7); #Lymphocytes 1.4 thou/uL (1.20-3.40); #Monocytes 0.8 thou/uL (0.11-0.59); #Neutrophils 5.4 thou/uL (1.40-6.50); %Basophils 0.2 % (0.0-1.0); %Eosinophils 4.4 % (0.0-10.0); %Lymphocytes 17.5 % (21.0-51.0); %Monocytes 9.8 % (0.0-10.0); %Neutrophils 68.2 % (42.0-75.0); Hemoglobin 10.7 g/dL (14.0-18.0); Mean Corpuscular HGB CONC 30.8 g/dL (32.0-36.0); Mean Corpuscular Hemoglobin 22.9 pg (27.0-31.0); Mean Corpuscular Volume 74.2 fL (78.0-98.0); Mean Platelet Volume 9.9 fL (7.4-10.4); Platelet Count 140 thou/uL (130-400); RBC Distribution Width 16.5 % (11.5-14.5); White Blood Cell (WBC) Count 7.9 thou/uL (4.8-10.8)
[2018-10-14 10:39] LABS: INR-International Normal Ratio 1.1; Prothrombin Time 14.2 SEC (12.0-14.7)
[2018-10-14 10:45] LABS: Anion Gap 14 mmol/L (10-20); BUN (Urea Nitrogen) 36 mg/dL (8.4-25.7); Calc. Creatinine Clearance 0 mL/min (70-130); Calcium 8.8 mg/dL (7.8-10.44); Carbon Dioxide 24 mmol/L (23-31); Chloride 103 mmol/L (98-107); Estimated GFR-MDRD 33; Glucose 86 mg/dL (83-110); Potassium 4.4 mmol/L (3.5-5.1); Sodium 137 mmol/L (136-145)
[2018-10-14 11:15] LABS: MDiff Complete? YES; Macrocytosis SLIGHT = 6-15 cells (100X) (0-5/hpf); Platelet Morphology Comment Appears Adequate; Polychromasia SLIGHT = 2-3 cells (100X) (0-2/hpf)
--- NOTE | 2018-10-15 08:25 | ECHO ---
DATE OF SERVICE: 10/14/18 The Anesthesiology department provided with sedation for the patient. Please see their notes for det ails. After adequate sedation was achieved, transesophageal probe was inserted into the mouth and into the esophagus. Multiplanar views were obtained. Left ventricle is normal size, normal wall thickness. Systolic function appears to be normal. Estima alvino EF at 55-60%. Left atrium is mildly dilated. Right atrium is mildly dilated. The right ventricle is normal size. Aortic valve is sclerotic but opens well. No stenosis or regurgitation. Mitral valve is structurally normal. No stenosis. There is mild to moderate regurgitation. Tricuspid valve is structurally normal. There is mild TR. Pulmonary valve is not well seen. Left atrial appendage has a Watchman device with small amount of peridevice leak. This is significant ly improved from the last imaging but there is still both and forth flow. 3D images confirm this find ing. CONCLUSIONS: 1. Normal LV systolic function, EF at 55-60%. 2. Mild to moderate MR. 3. Aortic valve sclerosis. 4. Mild TR. 5. Watchman device is well seated in left atrial appendage. There is a small amount of flow in and o ut of the device. This was confirmed with 3D imaging. When compared to previous transesophageal echo, there has been a significant improvement in the flow but it is still present.
--- NOTE | 2018-10-15 22:55 | EKG ---
Test Reason : PREOP LUKASZ Blood Pressure : / mmHG Vent. Rate : 061 BPM Atrial Rate : 061 BPM P-R Int : 202 ms QRS Dur : 088 ms QT Int : 426 ms P-R-T Axes : 053 080 080 degrees QTc Int : 428 ms Normal sinus rhythm Normal ECG When compared with ECG of 09-AUG-2018 07:21, Sinus rhythm has replaced Atrial fibrillation Confirmed by Hao NICKERSON ([id number]) on 10/15/2018 10:55:41 PM Referred By: [place]/GURJIT Confirmed By:Hao NICKERSON
== END 2018-10-14 13:05 | disposition home or self-care (01) ==
LOC: CCL 09:05
PROVIDERS: ATTEND Internal Medicine Cardiovascular Disease
PROC: B246ZZ4 Ultrasonography of Right and Left Heart, Transesophageal (ICD-10-PCS; principal; 2018-10-14)
DX: I48.91 Unspecified atrial fibrillation (principal); I08.3 Combined rheumatic disorders of mitral, aortic and tricuspid valves; Z88.1 Allergy status to other antibiotic agents; Z79.01 Long term (current) use of anticoagulants; Z79.899 Other long term (current) drug therapy
CPT/HCPCS: 36415; 80048; 85025; 85610; 85730; 93005; 93010; 93312

== ENCOUNTER 2018-11-04 03:26 | Observation (INO) | payer MEDICARE ==
[2018-11-04] MEDS ORDERED: Ondansetron PF 4 MG/2 ML Vial ONE (03:57)
[2018-11-04 03:59] LABS: #Eosinphils 0.3 thou/uL (0.0-0.7); #Lymphocytes 1.4 thou/uL (1.20-3.40); #Neutrophils 12.6 thou/uL (1.40-6.50); %Eosinophils 1.8 % (0.0-10.0); %Lymphocytes 9.5 % (21.0-51.0); %Monocytes 6.4 % (0.0-10.0); %Neutrophils 82.4 % (42.0-75.0); Hemoglobin 12.8 g/dL (14.0-18.0); Mean Corpuscular Hemoglobin 22.9 pg (27.0-31.0); Mean Platelet Volume 10.5 fL (7.4-10.4); Platelet Count 160 thou/uL (130-400); RBC Distribution Width 16.4 % (11.5-14.5); Red Blood Cell (RBC) Count 5.58 mill/uL (4.70-6.10); White Blood Cell (WBC) Count 15.3 thou/uL (4.8-10.8)
[2018-11-04 04:19] LABS: ALT (SGPT) 11 U/L (8-55); AST (SGOT) 14 U/L (5-34); Albumin 4.5 g/dL (3.4-4.8); Alkaline Phosphatase 124 U/L (40-150); Anion Gap 17 mmol/L (10-20); BUN (Urea Nitrogen) 35 mg/dL (8.4-25.7); Bilirubin, Total 0.6 mg/dL (0.2-1.2); Calc. Creatinine Clearance 0 mL/min (70-130); Calcium 9.7 mg/dL (7.8-10.44); Carbon Dioxide 23 mmol/L (23-31); Chloride 102 mmol/L (98-107); Estimated GFR-MDRD 30; Globulin 3.2 g/dL (2.4-3.5); Glucose 141 mg/dL (83-110); Potassium 4.9 mmol/L (3.5-5.1); Protein, Total 7.7 g/dL (5.8-8.1); Sodium 137 mmol/L (136-145)
--- NOTE | 2018-11-04 08:57 | CT ---
PRELIMINARY REPORT/[facility]/EMERGENCY AFTER HOURS PROCEDURE: EXAM: CT Abdomen and Pelvis With Contrast EXAM DATE/TIME: 11/04/2018 4:40 AM CLINICAL HISTORY: 78 years old, male; Patient HX: M78 presents to ED for abdominal pain. PT reports pain began last nig ht around 730pm, lower abdominal pain. PT also reports n w vomiting. Last bm around 8pm last night. P T denies diarrhea, reports he feels constipated. No urinary SX, denies fever denies HX of previous SX. Hx-appendicitis; HX of all normal colonoscopy, been 10-20 years since last one TECHNIQUE: Imaging protocol: Computed tomography of the abdomen and pelvis with intravenous contrast. COMPARISON: No relevant prior studies available. FINDINGS: Lungs: Consolidations in the right lung base may represent atelectasis. Liver: Normal. No mass. Gallbladder and bile ducts: Normal. No calcified stones. No ductal dilation. Pancreas: Normal. No ductal dilation. Spleen: Normal. No splenomegaly. Adrenals: Normal. No mass. Kidneys and ureters: Normal. No hydronephrosis. Stomach and bowel: The jejunum is dilated measuring up to 4.0 cm in diameter.. Diverticulosis is iden tified in the colon. There is a transition area in mid abdomen. The bowel in the transition area demo nstrates wall thickening. The distal small bowel is collapsed. Appendix: The appendix is not identified. Intraperitoneal space: Unremarkable. No free fluid or free air. No fluid collection. Vasculature: Calcifications in the dhillon of the aorta and other arteries are consistent with atherosc lerosis. No abdominal aortic aneurysm or dissection is identified. Lymph nodes: Unremarkable. No enlarged lymph nodes. Bladder: Unremarkable as visualized. Reproductive: Unremarkable as visualized. Bones/joints: There are degenerative changes in the spine. Soft tissues: A hernia in the umbilical area contains fat. IMPRESSION: 1. Small bowel dilatation consistent with obstruction, possibly partial. Wall thickening in the small bowel in the transition zone which may be due to enteritis. 2. Additional findings as above. Thank you for allowing us to participate in the care of your patient. Dictated and Authenticated by: Aristides Slater MD 11/04/2018 5:49 AM Central Time ([place] & [place]) FINAL REPORT ABDOMEN AND PELVIC CT SCAN WITH IV CONTRAST EMERGENCY AFTER HOURS EXAM TIME: 4:42 a.m. DATE: 11/04/2018. Evidence for a proximal small bowel obstruction with dilated jejunum with a transition zone in the mi d abdomen with some associated bowel wall thickening with collapsed distal small bowel. Colonic dive rticulosis without acute diverticulitis. Right lower lobe pleural-based parenchymal changes, probabl y atelectasis or chronic change. A 4.5 x 6 cm diameter mass in the left lobe of the liver containing an area of calcification which has some initial peripheral enhancement and then fills in on the kathy yed study 4 minutes later, evidence for a benign cavernous hemangioma. IMPRESSION: Small bowel obstruction with a focal transition zone with some associated bowel wall thickening, nons pecific. A 4.5 x 6 cm diameter left lobe of liver mass with features evidence for a benign cavernous hemangioma. This benign cavernous hemangioma in the left lobe of the liver was not noted by [facility]. CODE T POS: SURAJ
[2018-11-04] MEDS ORDERED: Ondansetron ODT 4 MG TAB SL PRN (09:18)
[2018-11-04] MEDS ORDERED: Ondansetron PF 4 MG/2 ML Vial IVP PRN (09:18)
[2018-11-04] MEDS ORDERED: Sodium Chloride 0.9% 1,000 ML IV SCH (09:18)
[2018-11-04] MEDS ORDERED: Benzocaine 20% Spray 60 ML CAN FS SCH (10:30)
[2018-11-04] MEDS ORDERED: Lorazepam 2 MG/ML VIAL SLOW IVP SCH ×2 (10:30→16:45)
[2018-11-04] MEDS ORDERED: ISOVUE-370 76%-LOCM 1 ML ONE (13:10)
[2018-11-04] MEDS ORDERED: Dextrose 50% Abboject 50 ML SYRINGE SLOW IVP PRN (13:15)
[2018-11-04] MEDS ORDERED: Dextrose 5% in Water 1,000 ML IV PRN (13:15)
[2018-11-04] MEDS ORDERED: Sodium Chloride 0.45% 1,000 ML IV SCH (13:15)
[2018-11-04] MEDS ORDERED: HumaLOG 300 UNITS/3 ML VIAL SC PRN (13:15)
[2018-11-04] MEDS ORDERED: Acetaminophen 1,000 MG in Premix Bag 1 BAG IVPB PRN (13:19)
[2018-11-04] MEDS ORDERED: Morphine 2 MG/ML SYRINGE SLOW IVP PRN (13:19)
[2018-11-04] MEDS ORDERED: Morphine 4 MG/ML VIAL SLOW IVP PRN (13:19)
[2018-11-04] MEDS ORDERED: Acetaminophen 1,000 MG in Premix Bag 1 BAG IVPB SCH (13:30)
--- NOTE | 2018-11-04 13:49 | RAD ---
Exam: Abdomen 2 views chest one view: HISTORY: Small bowel obstruction COMPARISON: CT 11/04/2018 FINDINGS: Bilateral vascular congestion with minimal pleural effusions and some pleural-based parenchymal ruvalcaba es more so on the right. No evidence for free intraperitoneal air. Persistent dilated small bowel loops with some air-fluid levels evidence for small bowel obstruction. IMPRESSION: Bilateral vascular congestion the chest with minimal pleural and parenchymal opacity changes in both bases worse on the right side. Abnormally dilated small bowel evidence for small bowel obstruction. Continued short-term follow-up f or clearing or stability. Incidental note, review of the prior CT scan demonstrates a fat-containing periumbilical hernia.
[2018-11-04 13:52] LABS: #Eosinphils 0.2 thou/uL (0.0-0.7); #Lymphocytes 1.3 thou/uL (1.20-3.40); #Monocytes 0.9 thou/uL (0.11-0.59); #Neutrophils 8.4 thou/uL (1.40-6.50); %Basophils 0.3 % (0.0-1.0); %Eosinophils 1.6 % (0.0-10.0); %Monocytes 8.5 % (0.0-10.0); %Neutrophils 77.7 % (42.0-75.0); Hemoglobin 11.9 g/dL (14.0-18.0); Mean Corpuscular HGB CONC 30.4 g/dL (32.0-36.0); Mean Corpuscular Hemoglobin 22.3 pg (27.0-31.0); Mean Corpuscular Volume 73.5 fL (78.0-98.0); Mean Platelet Volume 10.3 fL (7.4-10.4); Platelet Count 158 thou/uL (130-400); RBC Distribution Width 16.4 % (11.5-14.5); Red Blood Cell (RBC) Count 5.33 mill/uL (4.70-6.10); White Blood Cell (WBC) Count 10.8 thou/uL (4.8-10.8)
[2018-11-04 14:11] LABS: Anion Gap 13 mmol/L (10-20); BUN (Urea Nitrogen) 35 mg/dL (8.4-25.7); Calc. Creatinine Clearance 0 mL/min (70-130); Calcium 8.6 mg/dL (7.8-10.44); Carbon Dioxide 26 mmol/L (23-31); Chloride 105 mmol/L (98-107); Estimated GFR-MDRD 33; Glucose 80 mg/dL (83-110); Potassium 4.7 mmol/L (3.5-5.1); Sodium 139 mmol/L (136-145)
--- NOTE | 2018-11-04 16:55 | RAD ---
Exam: Abdomen one view: HISTORY: ET tube placement position evaluation: Findings/impression: The NG tube is noted in down into the region of the antrum of the stomach. Bilateral chest pleural an d parenchymal changes.
[2018-11-04 17:02] VITALS: BMI 35.4
--- NOTE | 2018-11-04 17:04 | HP ---
HISTORY OF PRESENT ILLNESS: Mr. Jacek Hurst is an 78-year-old male patient with onset of abdominal pain, nausea, and vomiting yesterday. He presented to the emergency room, had a CAT scan revealing changes consistent with a bowel obstruction. There appeared to be a transition zone in the distal ileum. He has passed some flatus today, but has not had a bowel movement since yesterday prior to the onset of the pain. He has had a past history of constipation, impaction episodes, but no episode such as this. The patient is on Eliquis, last taken yesterday morning, followed by Dr. Senior with a Watchman procedure. 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 Last one was more than 10 years ago. He states he has four stents. He saw Dr. Senior last week. He reports having had a normal cardiac stress test earlier this year. Abdominal x-rays obtained today revealed the NG tube to be in the upper stomach and needs to be advanced another 10 to 15 cm. He is very anxious about this and we will require Ativan parenteral for this. They had a great deal of difficulty placing the NG tube in the emergency room because of his anxiety. ALLERGIES: CIPRO. SOCIAL HISTORY: Tobacco, none. Alcohol, none. MEDICATIONS: At home; 1. Multaq 400 mg b.i.d. 2. Diltiazem or Cartia XT daily. 3. Coreg 3.125 mg b.i.d. 4. Metformin 1000 mg b.i.d. 5. Ambien 5 mg at bedtime. 6. Onglyza a.m. 7. K-Dur 20 mEq daily. 8. Omeprazole 20 mg daily. 9. Lisinopril 20 mg at bedtime. 10. Insulin 50 one units subcu p.m. 11. Furosamide 40 mg b.i.d. 12. Atorvastatin 20 mg p.o. at bedtime. 13. Eliquis b.i.d. PAST SURGICAL HISTORY: Watchman procedure, cardiac catheterization, coronary stents, open appendectomy many years ago, and right hip ORIF. PAST MEDICAL HISTORY: Hypertension, metabolic syndrome, morbid obesity, atrial fibrillation, coronary artery disease, diabetes mellitus, elevated cholesterol, alcohol socially rarely, tobacco never, and chronic kidney disease. REVIEW OF SYSTEMS: Noncontributory except as noted above. PHYSICAL EXAMINATION: VITAL SIGNS: 127 kg. 114/51, 70, 18, and 98.1 degrees. HEAD, EARS, EYES, NOSE, AND THROAT: Unremarkable. LUNGS: Clear to auscultation. CARDIAC: Regular rate and rhythm with no murmur or gallop. ABDOMEN: Obese, distended, and tympanitic. Bowel sounds present. EXTREMITIES: No ankle edema. LABORATORY DATA: White count 10 and hemoglobin 11.9. Sodium 139, potassium 4.7, BUN 35, creatinine 1.96, and glucose 80. ASSESSMENT AND PLAN: 1. Bowel obstruction. We will advance his NG tube. Repeat his abdominal x-rays. We will obtain a small bowel followthrough tomorrow. He may need operative intervention pending his small bowel followthrough. We will await these studies. We will tentatively schedule a surgery tomorrow afternoon, in case as necessary, awaiting a small bowel followthrough. 2. Coronary artery disease, followed by Dr. Senior, who I have consulted and will see him today. 3. Atrial fibrillation with a Watchman procedure on [facility], last taken Sunday morning more than 24 hours ago. 4. Morbid obesity and metabolic syndrome. 5. Hypertension. 6. Diabetes. 7. Anxiety. 8. Chronic kidney disease. I reviewed the computer records and this has been an issue for him. He has a mild exacerbation of that on this occasion with acute kidney injury superimposed on his chronic kidney disease. BUN and creatinine are normal at times and mildly elevated at other times and on different hospital presentation has been elevated to this degree. Job ID: [id number]
[2018-11-04] MEDS: Carvedilol 3.125 MG TAB PER TUBE SCH (17:50)
[2018-11-04] MEDS: Dronedarone HCl 400 MG TAB PER TUBE SCH (17:50)
[2018-11-04] MEDS: Dextrose 5 %-0.45 % NaCl 1,000 ML IV SCH (19:30)
--- NOTE | 2018-11-04 19:38 | CON ---
DATE OF CONSULTATION: 11/04/2018 REASON FOR CONSULTATION: Preoperative evaluation. PRIMARY DBA DEVELOPER: Israel Senior MD. HISTORY OF PRESENT ILLNESS: Mr. Hurst is a very pleasant 78-year-old white gentleman, very well known to myself, who comes to the hospital for abdominal pain. He was diagnosed with a small-bowel obstruction and was admitted to the inpatient surgical floor and put on bowel rest with plans of possible surgery if his obstruction does not resolve. He denies any chest pain, tightness, or pressure. No shortness of breath. He has no other issues other than his abdominal bowel issues at this time. PAST MEDICAL HISTORY: 1. Atrial tachycardia. 2. Atrial flutter/atrial fibrillation. 3. Coronary artery disease, status post RCA stent in 2008 and LAD stent in 2013. 4. Normal cardiac PET scan in July of 2017. 5. Type 2 diabetes. 6. Depression. 7. Obstructive sleep apnea. PAST SURGICAL HISTORY: 1. Right femur fracture. 2. Appendectomy. 3. Tonsillectomy. 4. Cardiac ablation x3. 5. Several cardioversions in the past. 6. Placement of a Watchman device a few months ago. MEDICATIONS: Outpatient medications include; 1. Multaq 400 mg b.i.d. 2. Diltiazem. 3. Coreg 3.125 b.i.d. 4. Metformin. 5. Ambien. 6. Onglyza. 7. Potassium chloride 20 mEq a day. 8. Omeprazole. 9. Lisinopril 20 mg a day. 10. Insulin Lantus. 11. Lasix 40 mg b.i.d. 12. Atorvastatin 10 mg at bedtime. 13. Eliquis 2.5 mg b.i.d. ALLERGIES: CIPROFLOXACIN. SOCIAL HISTORY: No alcohol, tobacco, or drugs. FAMILY HISTORY: Noncontributory. REVIEW OF SYSTEMS: A 12-point review of systems was done and was all negative unless stated in the history of present illness. PHYSICAL EXAMINATION: VITAL SIGNS: Temperature 98.5, pulse 75, respiratory rate 20, saturating 96% on room air, and blood pressure 147/65. GENERAL: Awake, alert, and oriented x3, in no distress. HEENT: Normocephalic and atraumatic. NECK: Supple. LUNGS: Clear. CARDIOVASCULAR: S1 and S2. No S3 or S4. There is a grade 2/6 systolic murmur at the right upper sternal border. ABDOMEN: Soft, but tender to palpation. No rebound or guarding. Positive bowel sounds. No tingling. EXTREMITIES: No edema. SKIN: Warm and dry. LABORATORY DATA: Laboratory work was reviewed; white count of 15 now at 10, hemoglobin 11.9, hematocrit of 39, platelet count 158. Chemistries are unremarkable except for creatinine of 2.1 down to 1.9. GFR of 33, glucose of 80. LFTs are normal. Albumin was 4.5. EKG was reviewed. ASSESSMENT/PLAN: 1. Preoperative evaluation. He is intermediate risk for an intermediate risk procedure. He is asymptomatic from the cardiac standpoint. We would continue to hold Eliquis until surgery is planned and then restart once safe from the surgical stent. 2. Coronary artery disease. Stable at this time. No acute coronary syndrome. 3. Small bowel obstruction. Per surgery. May proceed with surgery as indicated. 4. Atrial fibrillation/atrial flutter. 5. Status post Watchman device with some leak. We will need to restart Eliquis as soon as possible. Thank you for letting me to participate in the care of your patient. We will follow. Job ID: [id number]
[2018-11-05] MEDS: Dextrose 5 %-0.45 % NaCl 1,000 ML IV SCH (03:04)
[2018-11-05 05:40] LABS: #Eosinphils 0.2 thou/uL (0.0-0.7); #Lymphocytes 1.2 thou/uL (1.20-3.40); #Monocytes 0.8 thou/uL (0.11-0.59); %Basophils 0.2 % (0.0-1.0); %Eosinophils 3.9 % (0.0-10.0); %Lymphocytes 18.9 % (21.0-51.0); %Monocytes 12.1 % (0.0-10.0); %Neutrophils 64.9 % (42.0-75.0); Hemoglobin 10.2 g/dL (14.0-18.0); Mean Corpuscular HGB CONC 31.5 g/dL (32.0-36.0); Mean Corpuscular Hemoglobin 23.3 pg (27.0-31.0); Mean Corpuscular Volume 74.1 fL (78.0-98.0); Mean Platelet Volume 10.2 fL (7.4-10.4); Platelet Count 123 thou/uL (130-400); RBC Distribution Width 16.1 % (11.5-14.5); Red Blood Cell (RBC) Count 4.37 mill/uL (4.70-6.10); White Blood Cell (WBC) Count 6.2 thou/uL (4.8-10.8)
[2018-11-05 05:54] LABS: Hemoglobin A1c 5.4 % (4.0-6.0)
[2018-11-05 06:03] LABS: Anion Gap 9 mmol/L (10-20); BUN (Urea Nitrogen) 25 mg/dL (8.4-25.7); Calc. Creatinine Clearance 65 mL/min (70-130); Calcium 8.1 mg/dL (7.8-10.44); Carbon Dioxide 26 mmol/L (23-31); Chloride 106 mmol/L (98-107); Estimated GFR-MDRD 43; Glucose 134 mg/dL (83-110); Sodium 137 mmol/L (136-145)
[2018-11-05] MEDS ORDERED: Pantoprazole 40 MG VIAL IVP SCH (09:00)
[2018-11-05] MEDS: Dronedarone HCl 400 MG TAB PER TUBE SCH (09:59)
[2018-11-05] MEDS: Carvedilol 3.125 MG TAB PER TUBE SCH (10:00)
[2018-11-05] MEDS ORDERED: Zolpidem Tartrate 5 MG TAB PO PRN (10:21)
--- NOTE | 2018-11-05 11:06 | RAD ---
SMALL BOWEL FOLLOW THROUGH: 11/05/2018 HISTORY: Small bowel obstruction. 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 The pat ient was administered Gastrografin through the nasogastric tube. On immediate post administration im aging, there is contrast media within the stomach and proximal nondilated small bowel loops. There i s rapid transit time to the colon. There is early colonic filling by 15 minutes and there is contras t media extending to the level of the descending colon by 30 minutes. IMPRESSION: Rapid transit through the small bowel to the colon, within 15-30 minutes. POS: OFF
[2018-11-05] MEDS ORDERED: MD-Gastroview 120 ML BOT ONE (16:01)
[2018-11-05 16:14] VITALS: BP 124/72; TEMP 97.7
[2018-11-05] MEDS ORDERED: Insulin Glargine 51 UNITS in Pre-Filled Syringe 1 EACH SC SCH (21:00)
[2018-11-05] MEDS ORDERED: Apixaban 2.5 MG TAB PO SCH (21:00)
[2018-11-05] MEDS ORDERED: INSULIN GLARGINE HUM REC ANLOG SQ SCH (21:00)
[2018-11-05] MEDS ORDERED: Lisinopril 20 MG TAB PO SCH (21:00)
[2018-11-05] MEDS ORDERED: Atorvastatin Calcium 20 MG TAB PO SCH (21:00)
--- NOTE | 2018-11-06 04:44 | DIS ---
DATE OF ADMISSION: 11/04/2018 DATE OF DISCHARGE: 11/05/2018 DISCHARGE DIAGNOSES: Abdominal pain and bowel obstruction, resolved nonoperatively, diabetes mellitus, anxiety. Other medical problems listed above. DISCHARGE MEDICATIONS: Resume prehospitalization medications as well as Eliquis. See list. HISTORY: An 78-year-old male presenting with abdominal pain, had seen in the emergency room for his abdominal pain and abdominal distention. CAT scan suggested bowel obstruction. He had acute kidney injury secondary to dehydration. He was admitted, hydrated, NG tube placed, requiring anxiolytics to accomplish this. He has significant NG tube output. He underwent a small bowel follow through that was normal. He resumed his diet. He resumed his home medications. He will follow up in my office as needed. Follow up with Dr. Senior per appointment. Job ID: [id number]
[2018-11-06] MEDS ORDERED: Potassium Chloride 20 MEQ TAB PO SCH (09:00)
[2018-11-06] MEDS ORDERED: Alogliptin 25 MG TAB PO SCH (09:00)
[2018-11-06] MEDS ORDERED: metFORMIN 500 MG TAB PO SCH (17:00)
--- NOTE | 2018-11-07 16:35 | EKG ---
Test Reason : Blood Pressure : / mmHG Vent. Rate : 068 BPM Atrial Rate : 068 BPM P-R Int : 224 ms QRS Dur : 084 ms QT Int : 402 ms P-R-T Axes : 083 066 103 degrees QTc Int : 427 ms Sinus rhythm with 1st degree A-V block Nonspecific ST abnormality Abnormal ECG Confirmed by KIM GALLEGOS ([id number]) on 11/07/2018 4:34:48 PM Referred By: MOHAMUD Confirmed By:KIM GALLEGOS
== END 2018-11-05 16:48 | disposition home or self-care (01) ==
LOC: ERS 03:26 → SURG B 06:48
PROVIDERS: ADMIT Specialist; ATTEND Specialist
DX: K56.609 Unspecified intestinal obstruction, unspecified as to partial versus complete obstruction (principal); D18.03 Hemangioma of intra-abdominal structures; K57.30 Diverticulosis of large intestine without perforation or abscess without bleeding; E86.0 Dehydration; N17.9 Acute kidney failure, unspecified; I25.2 Old myocardial infarction; I48.91 Unspecified atrial fibrillation; I25.10 Atherosclerotic heart disease of native coronary artery without angina pectoris; E78.00 Pure hypercholesterolemia, unspecified; I12.9 Hypertensive chronic kidney disease with stage 1 through stage 4 chronic kidney disease, or unspecified chronic kidney disease; E11.22 Type 2 diabetes mellitus with diabetic chronic kidney disease; N18.9 Chronic kidney disease, unspecified; F41.9 Anxiety disorder, unspecified; I48.92 Unspecified atrial flutter; F32.9 Major depressive disorder, single episode, unspecified; G47.33 Obstructive sleep apnea (adult) (pediatric); E66.01 Morbid (severe) obesity due to excess calories; Z68.35 Body mass index [BMI] 35.0-35.9, adult; Z79.01 Long term (current) use of anticoagulants; Z79.4 Long term (current) use of insulin; Z79.899 Other long term (current) drug therapy; Z88.1 Allergy status to other antibiotic agents; Z95.5 Presence of coronary angioplasty implant and graft
CPT/HCPCS: 36415; 36416; 74018; 74022; 74177; 74250; 80048; 80053; 83036; 85025; 93005; 93010; 96361; 96374; 96375; 96376; C9113; G0378; J0131; J1815; J2060; J2405; Q9963; Q9966

== ENCOUNTER 2018-11-21 07:38 | Day surgery (SDC) | payer MEDICARE ==
[2018-11-20 13:42] VITALS: BMI 34.5
[2018-11-21] MEDS ORDERED: Lidocaine 1% PF 5 ML VIAL ONE (12:02)
[2018-11-21] MEDS ORDERED: PROPOFOL 200 MG/20 ML VIAL ONE (12:02)
--- NOTE | 2018-11-21 17:15 | OP ---
DATE OF PROCEDURE: 11/21/2018 PROCEDURES PERFORMED: 1. Esophagogastroduodenoscopy (diagnostic). 2. Colonoscopy (diagnostic). INDICATIONS FOR PROCEDURE: Hematochezia while on full anticoagulation with Eliquis. DESCRIPTION OF PROCEDURE: After the risks and benefits of the procedures were explained to the patient including risks of bleeding, infection, perforation, reactions to anesthesia, aspiration, and/or pain, informed consent was obtained. The patient was then taken to the endoscopy suite, where deep sedation was administered via propofol and anesthesia support. Once adequate sedation was achieved, the patient was maneuvered into the left lateral decubitus position with introduction of the standard colonoscope into the mouth with intubation of the esophagus, stomach, and the proximal small intestines with the findings listed below. The patient tolerated this portion of the procedure well with no immediate perioperative complications. Upon conclusion of this portion of the procedure, all equipment was removed from the patient and the bed was rotated 180 degrees in anticipation of the colonoscopy. After a digital rectal examination was performed, the standard colonoscope was introduced into the rectum and advanced to the cecum without difficulty. The patient tolerated the procedure well. The quality of the prep was initially fair, but converted to a good prep with aggressive irrigation and suctioning. Upon conclusion of the procedure, all equipment was removed from the patient and he was transferred to Day Stay in satisfactory condition. EGD FINDINGS: Esophagus: Normal-appearing mucosa was seen in the proximal, mid, and distal esophagus. There was no evidence of erosions, ulcerations, mass, lesions, or active/recent bleeding. Stomach: Normal-appearing mucosa was seen in the gastric cardia, fundus, body, antrum, greater curvature, and incisura. There was no evidence of erosions, ulcerations, mass, lesions, or active/recent bleeding. Duodenum: Normal-appearing mucosa was seen in both the duodenal bulb and 2nd portion of the duodenum. There was no evidence of erosions, ulcerations, mass, lesions, or active/recent bleeding. IMPRESSION: 1. Normal upper endoscopy. 2. No etiology for the patient's hematochezia was seen during this examination with no evidence of previously mentioned duodenal ulcerations. COLONOSCOPY FINDINGS: Digital rectal exam: Small to medium-sized external hemorrhoids were seen on external examination with no evidence of increased irritation or recent bleeding. Colon findings: Normal-appearing mucosa was seen at the ileocecal valve, appendiceal orifice, and within the cecum itself. Normal-appearing mucosa was then seen in the ascending, transverse, and proximal descending colon. Multiple small and large diverticula were seen within the mid descending, distal descending, and sigmoid colons, consistent with severe diverticulosis. Careful examination of all of these diverticula were performed with no evidence of active or recent bleeding. No ulcerations within the diverticular pouches was also seen. Normal-appearing mucosa was then seen within the rectum. However, on rectal retroflexion, medium-sized internal hemorrhoids were seen. This did display increased erythema with 2 hemorrhoids in particular, showing what appeared to be a possible recent bleeding, but no active bleeding seen during this procedure. IMPRESSION: 1. Severe left-sided diverticulosis without evidence of diverticulitis or diverticular bleeding. 2. Medium-sized external hemorrhoids without evidence of active/recent bleeding. 3. Small to medium-sized internal hemorrhoids with increased erythema and 2 areas of possible recent bleeding (most likely source of the patient's recent hematochezia). RECOMMENDATIONS: 1. We would recommend a higher fiber diet given the presence of large hemorrhoids and medium to large sized hemorrhoids being the most likely reason for recent hematochezia. 2. We would continue to hold Eliquis for approximately 48 hours after this procedure. 3. We would consider application of hydrocortisone suppositories if higher fiber diet is ineffective at controlling bleeding. 4. Follow up in the GI clinic in 2 to 3 weeks for further evaluation. Job ID: [id number]
== END 2018-11-21 12:21 | disposition home or self-care (01) ==
LOC: SDC 07:38
PROVIDERS: ATTEND Internal Medicine
PROC: 0DJD8ZZ Inspection of Lower Intestinal Tract, Via Natural or Artificial Opening Endoscopic (ICD-10-PCS; principal; 2018-11-21)
PROC: 0DJ08ZZ Inspection of Upper Intestinal Tract, Via Natural or Artificial Opening Endoscopic (ICD-10-PCS; 2018-11-21)
DX: K64.4 Residual hemorrhoidal skin tags (principal); K64.8 Other hemorrhoids; K57.31 Diverticulosis of large intestine without perforation or abscess with bleeding; I25.10 Atherosclerotic heart disease of native coronary artery without angina pectoris; Z79.01 Long term (current) use of anticoagulants; Z79.4 Long term (current) use of insulin; Z79.899 Other long term (current) drug therapy; Z88.1 Allergy status to other antibiotic agents; Z95.5 Presence of coronary angioplasty implant and graft
CPT/HCPCS: J2001; J2704

== ENCOUNTER 2019-02-04 13:10 | Inpatient (IN) | payer MEDICARE ==
[2019-02-04 14:03] LABS: #Eosinphils 0.1 thou/uL (0.0-0.7); #Lymphocytes 0.9 thou/uL (1.20-3.40); #Monocytes 1.1 thou/uL (0.11-0.59); #Neutrophils 7.2 thou/uL (1.40-6.50); %Basophils 0.3 % (0.0-1.0); %Eosinophils 0.6 % (0.0-10.0); %Lymphocytes 9.2 % (21.0-51.0); %Monocytes 12.2 % (0.0-10.0); %Neutrophils 77.7 % (42.0-75.0); Hemoglobin 10.2 g/dL (14.0-18.0); Mean Corpuscular HGB CONC 30.6 g/dL (32.0-36.0); Mean Corpuscular Hemoglobin 22.1 pg (27.0-31.0); Mean Corpuscular Volume 72.3 fL (78.0-98.0); Mean Platelet Volume 10.1 fL (7.4-10.4); Platelet Count 154 thou/uL (130-400); RBC Distribution Width 15.5 % (11.5-14.5); Red Blood Cell (RBC) Count 4.59 mill/uL (4.70-6.10); White Blood Cell (WBC) Count 9.3 thou/uL (4.8-10.8)
[2019-02-04 14:20] LABS: Hypochromia SLIGHT = 6-15 cells (100X) (0-5/hpf); MDiff Complete? YES; Microcytosis SLIGHT = 6-15 cells (100X) (0-5/hpf); Ovalocytes SLIGHT = 2-5 cells (100X) (0-1/hpf); Platelet Morphology Comment Appears Adequate; Polychromasia SLIGHT = 2-3 cells (100X) (0-2/hpf); Target Cells SLIGHT = 2-5 cells (100X) (0-1/hpf)
[2019-02-04 14:29] LABS: ALT (SGPT) 7 U/L (8-55); AST (SGOT) 11 U/L (5-34); Albumin 3.5 g/dL (3.4-4.8); Alkaline Phosphatase 136 U/L (40-110); Anion Gap 11 mmol/L (10-20); BUN (Urea Nitrogen) 16 mg/dL (8.4-25.7); Bilirubin, Total 0.9 mg/dL (0.2-1.2); CK (CPK) 71 U/L (30-200); Calc. Creatinine Clearance 0 mL/min (70-130); Calcium 8.6 mg/dL (7.8-10.44); Carbon Dioxide 29 mmol/L (23-31); Chloride 102 mmol/L (98-107); Estimated GFR-MDRD 43; Globulin 2.8 g/dL (2.4-3.5); Glucose 164 mg/dL (83-110); Lipase 29 U/L (8-78); Potassium 3.9 mmol/L (3.5-5.1); Protein, Total 6.3 g/dL (5.8-8.1); Sodium 138 mmol/L (136-145)
--- NOTE | 2019-02-04 15:03 | CT ---
CT PULMONARY ANGIOGRAM WITH IV CONTRAST AND 3-D POSTPROCESSING: HISTORY:Dyspnea FINDINGS: There is good contrast opacification of the pulmonary arterial vasculature without filling defects to suggest pulmonary embolism. The thoracic aorta is well opacified without aneurysm or dissection. There are small pleural effusions, larger on the left. Adjacent infiltrate/atelectatic changes are no alvino. No pneumothoraces are seen. There are degenerative changes in the spine. Mediastinal lymphadenopathy and hemangioma in the left lobe of the liver are stable since 12/24/2016. IMPRESSION: No CT evidence of pulmonary embolism.
[2019-02-04] MEDS ORDERED: cefTRIAXone\\ROCEPHIN 2 GM VIAL ONE (15:38)
[2019-02-04] MEDS ORDERED: Azithromycin 500 MG in Sodium Chloride 0.9% 250 ML 250 ML IVPB SCH (16:30)
[2019-02-04] MEDS ORDERED: HumaLOG 300 UNITS/3 ML VIAL SC PRN (17:07)
[2019-02-04] MEDS ORDERED: Dextrose 50% Abboject 50 ML SYRINGE SLOW IVP PRN (17:07)
[2019-02-04] MEDS ORDERED: Acetaminophen 325 MG TAB PO PRN (17:07)
[2019-02-04] MEDS ORDERED: Bisacodyl 10 MG SUPP PR PRN (17:07)
[2019-02-04] MEDS ORDERED: Dextrose 5% in Water 1,000 ML IV PRN (17:07)
[2019-02-04] MEDS ORDERED: Guaifenesin DM 100-10/5 ML UDCUP PO PRN (17:07)
[2019-02-04] MEDS ORDERED: Ondansetron PF 4 MG/2 ML Vial IVP PRN (17:07)
--- NOTE | 2019-02-04 17:38 | HP ---
REASON FOR ADMISSION: Mild CHF exacerbation, acute bronchitis. HISTORY OF PRESENTING ILLNESS: The patient gives history of feeling very weak with shortness of breath. He went to see his primary care physician, but his primary care physician was off this week and the patient was sent to Urgent Care. They did an x-ray there and the patient had a temperature of 100 degrees and was sent to ER for suspicion for pneumonia. The patient states he could not sleep well for last 2 days. He normally uses CPAP, but was unable to use it and was sitting up in bed. He has had cough with expectoration, but has not seen color of sputum as such. No chest pain or palpitation. He states he has right lung atelectasis for the last [address] Talavera for the same in the past. He has had sleep study with Dr. Talavera as well. No complaints of palpitations or PND. No complaints of urinary frequency or urgency. PAST MEDICAL AND SURGICAL HISTORY: The patient is scheduled for right carotid endarterectomy on by Dr. Andino. History of atrial fibrillation, flutter with multiple ablations and cardioversions in the past, diabetes mellitus type 2 , obesity, history of [place] x2, large umbilical hernia, has had coiling of his Watchman device on 12/25/2018, the Watchman device was placed in May of 2018. Right femur fracture repair, appendectomy, tonsillectomy. CURRENT MEDICATIONS: The patient is on, 1. Lisinopril 5 mg p.o. daily. 2. Potassium chloride 20 mEq p.o. daily. 3. Onglyza 5 mg p.o. daily. 4. Omeprazole 20 mg p.o. daily. 5. Lasix 40 mg twice daily. 6. Atorvastatin 40 mg p.o. at bedtime. 7. Colace 100 mg p.o. daily. 8. Zolpidem 5 mg p.o. at bedtime p.r.n. for insomnia. 9. Lantus 25 units subcu daily. 10. His Eliquis is held for upcoming surgery for carotids. 11. Coreg 3.125 mg twice daily. 12. Cardizem CD 180 mg p.o. daily. ALLERGIES: TO CIPRO. PERSONAL HISTORY: Does not abuse alcohol or drugs. No history of smoking. FAMILY HISTORY: Mother at the age of 42. She had history of colon cancer and was alcoholic as well. Father at the age of 67. He has had history of emphysema. CODE STATUS: Full. Power of social work job titles is his daughter, Ms. Sara Petty. PHYSICAL EXAMINATION: GENERAL: The patient is an 79-year-old male who is currently not in any acute distress. VITAL SIGNS: Blood pressure 128/60, pulse 84 per minute, respiratory rate is 24 per minute, temperature 98.3 degrees Fahrenheit, and saturating 100% on room air. NECK: Supple. No elevated JVD. HEENT: Eyes; extraocular muscles intact. Pupils reacting to light. Oral cavity, mucous membranes are dry. No exudates or congestion. CARDIOVASCULAR: S1 and S2 heard. Irregular rhythm. RESPIRATORY: Air entry 1+ bilateral. There is rhonchi plus bilateral rales plus in the infrascapular area. ABDOMEN: Distended. No rigidity or guarding. Bowel sounds are heard. EXTREMITIES: Mild peripheral edema. No calf tenderness. VASCULAR SYSTEM: Peripheral pulses 1+ bilateral. No ischemic ulcerations or gangrene. CENTRAL NERVOUS SYSTEM: No gross focal deficits noted. The patient is alert, awake, and oriented well. PSYCHIATRIC: The patient's mood is euthymic. No hallucinations or delusions. LABORATORY DATA: EKG done shows normal sinus rhythm at 80 beats per minute. There are nonspecific ST-T wave changes. White count of 9, H and H 10 and 33, platelet count 154, MCV is 72 with 77% neutrophils. Electrolytes stable. BUN 16, creatinine 1.5, serum glucose 164. Liver enzymes; AST and ALT within normal limits. Alkaline phosphatase is 136. Albumin is 3.5. CT angio chest done shows no evidence of PE. There is mediastinal lymphadenopathy and hemangioma in the left lobe of liver, which are stable when compared to prior CAT scan on 12/24/2016. Small bilateral pleural effusions with atelectasis noted. CLINICAL IMPRESSION AND PLAN: The patient will be under observation on medical floor for mild congestive heart failure exacerbation with likely acute bronchitis. He has had a fever of 100 prior to arrival. The patient is also morbidly obese with multiple medical issues. Early mobilization will be done. He will be on Levaquin 500 mg IV daily along with DuoNeb. We will continue his Lipitor, Coreg, Cardizem CD, Lantus, omeprazole, lisinopril, Onglyza as before. He will be on Lasix 40 mg IV at 6 a.m. and 2 p.m. for a total of 3 doses. If the patient's shortness of breath were to get worse or he becomes febrile, the patient will be switched over to inpatient status. Job ID: [id number] MTDD
[2019-02-04 18:32] VITALS: BMI 35.6
[2019-02-04] MEDS ORDERED: Zolpidem Tartrate 5 MG TAB PO PRN (19:58)
[2019-02-04] MEDS: Insulin Glargine 25 UNITS in Pre-Filled Syringe 1 EACH SC SCH (20:36)
[2019-02-04] MEDS: Famotidine 20 MG TAB PO SCH (20:36)
[2019-02-04] MEDS: Atorvastatin Calcium 40 MG TAB PO SCH (20:36)
[2019-02-04] MEDS: guaiFENesin ER 600 MG TAB PO SCH (20:36)
[2019-02-04] MEDS ORDERED: Apixaban 2.5 MG TAB PO SCH (21:00)
[2019-02-04] MEDS ORDERED: Doxycycline 100 MG CAP PO SCH (21:00)
[2019-02-04] MEDS ORDERED: Atorvastatin Calcium 20 MG TAB PO SCH (21:00)
[2019-02-04] MEDS ORDERED: INSULIN GLARGINE HUM REC ANLOG 25 UNIT SQ SCH (21:00)
[2019-02-05] MEDS ORDERED: Furosemide 40 MG/4 ML VIAL ONE (06:18)
[2019-02-05] MEDS ORDERED: SAXAGLIPTIN HCL PO SCH (09:00)
[2019-02-05] MEDS ORDERED: Aspirin Chewable 81 MG TAB PO SCH (09:00)
[2019-02-05] MEDS: Alogliptin 25 MG TAB PO SCH ×3 (10:18→19:00)
[2019-02-05] MEDS: Carvedilol 3.125 MG TAB PO SCH ×3 (10:18→18:03)
[2019-02-05] MEDS: Lisinopril 5 MG TAB PO SCH ×2 (10:18→13:14)
[2019-02-05] MEDS: guaiFENesin ER 600 MG TAB PO SCH ×3 (10:18→20:23)
[2019-02-05] MEDS: Furosemide 40 MG/4 ML VIAL SLOW IVP SCH ×2 (13:12→14:52)
--- NOTE | 2019-02-05 13:44 | CON ---
DATE OF CONSULTATION: 02/05/2019 REASON FOR CONSULTATION: Heart failure. HISTORY OF PRESENT ILLNESS: Mr. Hurst is a very pleasant 79-year-old white gentleman, very well known to myself, who comes to the hospital for shortness of breath. He was seen in Urgent Care and was diagnosed with possibly acute bronchitis as he had a temperature of 100 and shortness of breath, also with some level of heart failure, so he was transferred over to the hospital. He was admitted with diagnosis of acute diastolic heart failure and possible bronchitis. He was started on IV antibiotics. His last evaluation of LV function was back in October of this year, at which point we were doing a transesophageal echo to evaluate his Watchman device. His EF at that time was 55% to 60%. He on admission had a CT of the chest that showed some pleural effusions with atelectatic changes at the bases, but no evidence of pulmonary embolism. He denies any chest pain, tightness, or pressure. His only issue is shortness of breath. He states that he feels slightly better and he has lost about 10 pounds since he came in. He thinks this all fluid and has been urinating quite a bit. He has no other issues at this time. PAST MEDICAL HISTORY: 1. History of atrial tachycardia. 2. Atrial flutter and atrial fibrillation. 3. Coronary artery disease, status post RCA stent in 2008 and LAD stent in 2013. 4. Normal PET scan in July of 2017. 5. Type 2 diabetes. 6. Depression. 7. HAMILTON. PAST SURGICAL HISTORY: 1. Right femur fracture repair. 2. Appendectomy. 3. Tonsillectomy. 4. Cardiac ablation x3. 5. Cardioversion several times in the past. 6. Watchman device placement earlier this year with coiling of the device due to the kristin-device leak. This was done late December. OUTPATIENT MEDICATIONS: 1. Omeprazole 20 mg b.i.d. 2. Lisinopril 5 mg nightly. 3. Lantus 25 units q.p.m. 4. Carvedilol 3.125 b.i.d. 5. Atorvastatin 40 mg nightly. 6. Eliquis 5 mg b.i.d. 7. Diltiazem. 8. Furosemide 40 mg p.o. b.i.d. 9. Ambien. 10. Onglyza. 11. Potassium chloride 20 mEq a day. 12. Aspirin 81 a day. ALLERGIES: CIPROFLOXACIN. SOCIAL HISTORY: No alcohol, tobacco, or drugs. FAMILY HISTORY: Noncontributory. REVIEW OF SYSTEMS: A 12-point review of systems was done and was all negative unless stated in the history of present illness. PHYSICAL EXAMINATION: VITAL SIGNS: Temperature 98.4, pulse 73, respiratory rate 28, saturating 95% on 2 L, and blood pressure 127/59. GENERAL: Awake, alert, and oriented x3, in mild respiratory distress. HEENT: Normocephalic, atraumatic. NECK: Supple. LUNGS: Mild crackles at the bases. CARDIOVASCULAR: S1 and S2. No S3 or S4. There is a grade 2/6 systolic murmur at the right upper sternal border. ABDOMEN: Soft. Positive bowel sounds. EXTREMITIES: Trace edema. SKIN: Warm and dry. LABORATORY DATA: Laboratory work was reviewed. White count of 9, hemoglobin 10, hematocrit 33, and platelet count of 154. Chemistries were unremarkable except for creatinine of 1.55, which is at his baseline, and GFR of 43. Glucose was in the 160s to 200s. Alkaline phosphatase 136. BNP was 101, it is minimally elevated. IMAGING STUDIES: CT angio of the chest was reviewed and it showed no evidence of pulmonary embolism. There are small pleural effusions, left side is larger. There are infiltrate and atelectatic changes in the bases. Mediastinal lymphadenopathy and hemangiomas in the left lobe are stable compared to 2017 scan. ASSESSMENT: 1. Acute on chronic diastolic heart failure. 2. History of atrial dysrhythmias, currently in sinus rhythm. 3. Possible acute bronchitis, on levofloxacin. He has not had any allergic reactions to the levofloxacin, even though he has an allergy to ciprofloxacin on chart. PLAN: 1. Continue IV Lasix. 2. If breathing continues to be an issue, may need to be on some steroid regimen for bronchitis. 3. Continue to monitor on telemetry as he has had what appeared to be sinus rhythm in the past and was actually in atrial tachycardia. Currently, his heart rate is in the 70s and appears to be sinus rhythm. Thank you for letting us to participate in the care of your patient. We will follow. Job ID: [id number]
[2019-02-05 15:12] LABS: Anion Gap 13 mmol/L (10-20); BUN (Urea Nitrogen) 17 mg/dL (8.4-25.7); Calc. Creatinine Clearance 70 mL/min (70-130); Calcium 8.8 mg/dL (7.8-10.44); Carbon Dioxide 26 mmol/L (23-31); Chloride 103 mmol/L (98-107); Estimated GFR-MDRD 47; Potassium 3.8 mmol/L (3.5-5.1); Sodium 138 mmol/L (136-145)
[2019-02-05 15:13] LABS: Glucose 170 mg/dL (83-110)
[2019-02-05 17:22] LABS: %Eosinophils 0.2 % (0.0-10.0); %Lymphocytes 7.8 % (21.0-51.0); %Monocytes 10.7 % (0.0-10.0); %Neutrophils 81.2 % (42.0-75.0); Hemoglobin 10.5 g/dL (14.0-18.0); Mean Corpuscular HGB CONC 30.6 g/dL (32.0-36.0); Mean Corpuscular Hemoglobin 22.2 pg (27.0-31.0); Mean Corpuscular Volume 72.6 fL (78.0-98.0); Mean Platelet Volume 10.6 fL (7.4-10.4); Platelet Count 163 thou/uL (130-400); RBC Distribution Width 15.4 % (11.5-14.5); Red Blood Cell (RBC) Count 4.74 mill/uL (4.70-6.10); White Blood Cell (WBC) Count 11.3 thou/uL (4.8-10.8)
[2019-02-05 17:23] LABS: #Lymphocytes 0.9 thou/uL (1.20-3.40); #Monocytes 1.2 thou/uL (0.11-0.59); #Neutrophils 9.2 thou/uL (1.40-6.50); %Basophils 0.1 % (0.0-1.0)
[2019-02-05] MEDS ORDERED: Aspirin 81 mg Enteric Coated Tablet PO SCH (17:30)
[2019-02-05] MEDS: Budesonide 0.5 MG/2 ML NEB INH SCH (18:54)
[2019-02-05] MEDS: Atorvastatin Calcium 40 MG TAB PO SCH (20:23)
[2019-02-05] MEDS: Famotidine 20 MG TAB PO SCH (20:23)
[2019-02-05] MEDS: Insulin Glargine 25 UNITS in Pre-Filled Syringe 1 EACH SC SCH (20:23)
--- NOTE | 2019-02-05 22:41 | PDOC.HOSPP ---
- Subjective Encounter Date: 02/05/19 Encounter Time: 08:00 Subjective: Patient seen and examined for resp distress. Remains on O2. O2 sats in 80s without O2. No CP. No new complaints. No overnight events - Objective Vital Signs & Weight: Vital Signs (12 hours) Temp Pulse Pulse Pulse Resp BP BP 02/05/19 19:39 02/05/19 18:51 76 28 H 02/05/19 18:25 98.9 F 80 30 H 02/05/19 15:39 98.7 F 76 30 H 02/05/19 14:19 73 18 02/05/19 13:52 75 75 126/60 130/62 02/05/19 11:18 98.4 F 73 28 H BP Pulse Ox Pulse Ox 02/05/19 19:39 96 02/05/19 18:51 96 02/05/19 18:25 124/58 L 96 02/05/19 15:39 109/54 L 96 02/05/19 14:19 96 02/05/19 13:52 96 02/05/19 11:18 127/59 L 95 Weight Weight 269 lb 12.8 oz I&O: 02/04/19 02/05/19 02/06/19 06:59 06:59 06:59 Output Total 1075 Balance -1075 Result Diagrams: 02/05/19 06:00 02/06/19 04:58 Additional Labs: Accuchecks 02/05/19 02/05/19 02/05/19 19:39 16:51 10:41 POC Glucose 228 H 169 H 266 H 02/05/19 05:52 POC Glucose 145 H EKG Reviewed by me: Yes (Tele SR) Hospitalist ROS - Review of Systems Respiratory: reports: cough, dry, shortness of breath, SOB with excertion. denies: hemoptysis, pleuritic pain, sputum, wheezing, other Cardiovascular: denies: chest pain, palpitations, orthopnea, paroxysmal noc. dyspnea, edema, light headedness, other Gastrointestinal: denies: nausea, vomiting, abdominal pain, diarrhea, constipation, melena, hematochezia, other - Medication Medications: Active Medications Generic Name Dose Route Start Last Admin Trade Name Freq PRN Reason Stop Dose Admin Albuterol/Ipratropium 3 ml 02/04/19 19:00 02/05/19 18:51 Duoneb NEB 3 ml [id number] INDIGO Administration Alogliptin Benzoate 25 mg 02/05/19 09:00 02/05/19 19:00 Alogliptin PO Not Given DAILY INDIGO Atorvastatin Calcium 40 mg 02/04/19 21:00 02/05/19 20:23 Lipitor PO 40 mg HS INDIGO Administration Budesonide 0.5 mg 02/05/19 18:30 02/05/19 18:54 Pulmicort Neb Solution INH 0.5 mg BID-RT INDIGO Administration Carvedilol 3.125 mg 02/05/19 08:00 02/05/19 18:03 Coreg PO 3.125 mg BID-WM INDIGO Administration Diltiazem HCl 180 mg 02/05/19 09:00 02/05/19 10:18 Cardizem Cd PO 180 mg DAILY INDIGO Administration Famotidine 20 mg 02/04/19 21:00 02/05/19 20:23 Pepcid PO 20 mg QPM INDIGO Administration Furosemide 40 mg 02/05/19 06:00 02/05/19 14:52 Lasix SLOW IVP 02/06/19 06:01 40 mg 0600,1400 INDIGO Administration Guaifenesin 600 mg 02/04/19 21:00 02/05/19 20:23 Mucinex PO 600 mg Q12HR INDIGO Administration Levofloxacin 500 mg/ Device 100 mls @ 100 mls/hr 02/04/19 20:00 02/05/19 20: 24 IVPB 100 mls Q24HR INDIGO Administration Insulin Glargine 25 units/ 0.25 mls @ 0 mls/hr 02/04/19 21:00 02/05/19 20:23 Miscellaneous Medication SC 0.25 mls QPM INDIGO Administration Lisinopril 5 mg 02/05/19 09:00 02/05/19 10:18 Zestril PO 5 mg DAILY INDIGO Administration Ondansetron HCl 4 mg 02/04/19 17:07 02/04/19 23:29 Zofran IVP 4 mg Q6H PRN Administration Nausea/Vomiting Pantoprazole Sodium 40 mg 02/05/19 09:00 02/05/19 10:18 Protonix PO 40 mg DAILY INDIGO Administration Sodium Chloride 10 ml 02/04/19 21:00 02/05/19 22:05 Flush - Normal Saline IVF 10 ml Q12HR INDIGO Administration - Exam General - other findings: Pt in resp distress Neck: supple, no JVD Heart: RRR, no gallops, no rubs, normal peripheral pulses Respiratory: normal chest expansion, rales, rhonchi, tachypneic Gastrointestinal: soft, non-tender, non-distended, normal bowel sounds Extremities: no edema Psychiatric: normal affect, A&O x 3 Hosp A/P - Plan Acute hypoxic resp failure Acute on chronic diastolic HF Exacerbation Obesity BMI 34.3 HTN DM2 CKD 3 Abn LFTS prob due to passive hepatic congestion (POA) Carotid stenosis Par Afib - Anticoag on hold due to scheduled Carotid endarterectomy PLAN: Cont IV diuretics Pulm/Cardio input Cont Lantus/sliding scale Notify Dr Andino AM labs Cont other meds
[2019-02-06 05:54] LABS: ALT (SGPT) 7 U/L (8-55); AST (SGOT) 14 U/L (5-34); Albumin 3.1 g/dL (3.4-4.8); Alkaline Phosphatase 111 U/L (40-110); Anion Gap 16 mmol/L (10-20); BUN (Urea Nitrogen) 21 mg/dL (8.4-25.7); Bilirubin, Total 0.8 mg/dL (0.2-1.2); Calc. Creatinine Clearance 59 mL/min (70-130); Calcium 8.3 mg/dL (7.8-10.44); Carbon Dioxide 22 mmol/L (23-31); Chloride 104 mmol/L (98-107); Estimated GFR-MDRD 41; Globulin 2.9 g/dL (2.4-3.5); Glucose 144 mg/dL (83-110); Magnesium 2.1 mg/dL (1.6-2.6); Sodium 138 mmol/L (136-145)
[2019-02-06] MEDS: Furosemide 40 MG/4 ML VIAL SLOW IVP SCH (06:25)
--- NOTE | 2019-02-06 08:08 | RAD ---
TWO VIEWS OF THE CHEST: COMPARISON: 11/04/2018. HISTORY: Shortness of breath. FINDINGS: Two views of the chest show an enlarged but stable cardiomediastinal silhouette. A coil is now seen projecting over the heart which likely represents an occlusion device within the atrial appendage. T here is a small right pleural effusion. IMPRESSION: Small right pleural effusion. POS: C
[2019-02-06] MEDS: Budesonide 0.5 MG/2 ML NEB INH SCH ×2 (08:12→18:57)
[2019-02-06] MEDS: Aspirin 81 mg Enteric Coated Tablet PO SCH (08:46)
[2019-02-06] MEDS: Potassium Chloride 20 MEQ TAB PO SCH (08:46)
[2019-02-06] MEDS: guaiFENesin ER 600 MG TAB PO SCH ×2 (08:47→21:09)
[2019-02-06] MEDS: Alogliptin 25 MG TAB PO SCH (08:47)
[2019-02-06] MEDS: Carvedilol 3.125 MG TAB PO SCH ×2 (08:47→17:36)
[2019-02-06] MEDS: Lisinopril 5 MG TAB PO SCH (08:47)
[2019-02-06] MEDS: HumaLOG 300 UNITS/3 ML VIAL SC PRN (12:41)
--- NOTE | 2019-02-06 13:22 | PDOC.CPN ---
- Subjective Date: 02/06/19 Time: 13:20 Interval history: He is feeling better. Has diuresed well. His breathing is still an issue. - Review of Systems General: denies: fever/chills, weight/appetite/sleep changes, night sweats, fatigue Respiratory: reports: shortness of breath. denies: cough, congestion, exercise intolerance Cardiovascular: denies: chest pain, palpitation, edema, paroxysmal nocturnal dyspnea, orthopnea Gastrointestinal: denies: nausea, vomiting, diarrhea, constipation, abd pain, GI bleeding Musculoskeletal: denies: pain, tenderness, stiffness, swelling, arthritis/ arthralgias Neurological: denies: numbness, syncope, seizure, weakness - Objective Allergies/Adverse Reactions: Allergies Allergy/AdvReac Type Severity Reaction Status Date / Time ciprofloxacin [From Cipro] Allergy Hives Verified 02/04/19 19:26 Visit Medications: Current Medications Acetaminophen (Tylenol) 650 mg PO Q4H PRN PRN Reason: Headache/Fever/Mild Pain (1-3) Albuterol/Ipratropium (Duoneb) 3 ml NEB [id number] [facility] Last Admin: 02/06/19 08:10 Dose: 3 ml Alogliptin Benzoate (Alogliptin) 25 mg PO DAILY [facility] Last Admin: 02/06/19 08:47 Dose: 25 mg Aspirin (Ecotrin) 81 mg PO DAILY [facility] Last Admin: 02/06/19 08:46 Dose: 81 mg Atorvastatin Calcium (Lipitor) 40 mg PO HS [facility] Last Admin: 02/05/19 20:23 Dose: 40 mg Bisacodyl (Dulcolax) 10 mg ID DAILYPRN PRN PRN Reason: Constipation Budesonide (Pulmicort Neb Solution) 0.5 mg INH BID-RT [facility] Last Admin: 02/06/19 08:12 Dose: 0.5 mg Carvedilol (Coreg) 3.125 mg PO BID-WM [facility] Last Admin: 02/06/19 08:47 Dose: 3.125 mg Dextrose/Water (Dextrose 50%) 25 gm SLOW IVP PRN PRN PRN Reason: Hypoglycemia Diltiazem HCl (Cardizem Cd) 180 mg PO DAILY [facility] Last Admin: 02/06/19 08:46 Dose: 180 mg Famotidine (Pepcid) 20 mg PO QPM [facility] Last Admin: 02/05/19 20:23 Dose: 20 mg Glucagon (Glucagon) 1 mg IM PRN PRN PRN Reason: Hypoglycemia Guaifenesin (Mucinex) 600 mg PO Q12HR [facility] Last Admin: 02/06/19 08:47 Dose: 600 mg Guaifenesin/Dextromethorphan (Robitussin Dm) 15 ml PO Q4H PRN PRN Reason: Cough Dextrose/Water (D5w) 1,000 mls @ 0 mls/hr IV .Q0M PRN PRN Reason: Hypoglycemia Levofloxacin 500 mg/ Device 100 mls @ 100 mls/hr IVPB Q24HR [facility] Last Admin: 02/05/19 20:24 Dose: 100 mls Insulin Glargine 25 units/ (Miscellaneous Medication) 0.25 mls @ 0 mls/hr SC QPM [facility] Last Admin: 02/05/19 20:23 Dose: 0.25 mls Insulin Human Lispro (Humalog) 0 units SC .MODERATE SLIDING SC PRN PRN Reason: Moderate Correctional Scale Last Admin: 02/06/19 12:41 Dose: 4 unit Insulin Human Lispro (Humalog) 0 units SC .BEDTIME SLIDING SC PRN PRN Reason: Bedtime Correctional Scale Lisinopril (Zestril) 5 mg PO DAILY [facility] Last Admin: 02/06/19 08:47 Dose: 5 mg Ondansetron HCl (Zofran) 4 mg IVP Q6H PRN PRN Reason: Nausea/Vomiting Last Admin: 02/04/19 23:29 Dose: 4 mg Pantoprazole Sodium (Protonix) 40 mg PO DAILY [facility] Last Admin: 02/06/19 08:47 Dose: 40 mg Potassium Chloride (K-Dur) 20 meq PO DAILY [facility] Last Admin: 02/06/19 08:46 Dose: 20 meq Senna/Docusate Sodium (Senokot S) 2 tab PO BID PRN PRN Reason: Constipation Sodium Chloride (Flush - Normal Saline) 10 ml IVF Q12HR [facility] Last Admin: 02/05/19 22:05 Dose: 10 ml Sodium Chloride (Flush - Normal Saline) 10 ml IVF PRN PRN PRN Reason: Saline Flush Zolpidem Tartrate (Ambien) 5 mg PO HS PRN PRN Reason: Insomnia Vital Signs & Weight: Vital Signs Temp Pulse Pulse Resp BP BP BP 02/06/19 11:15 98.2 F 72 20 92/50 L 02/06/19 09:40 72 95/48 L 100/50 L 02/06/19 08:12 79 24 H 02/06/19 08:10 79 24 H 02/06/19 07:15 98.3 F 66 20 128/61 02/06/19 06:22 125/61 02/06/19 02:27 99.1 F 87 17 117/54 L Pulse Ox Pulse Ox Pulse Ox Pulse Ox 02/06/19 11:15 96 02/06/19 09:40 87 L 89 L 90 L 02/06/19 08:12 93 L 02/06/19 08:10 93 L 02/06/19 07:15 98 02/06/19 06:22 02/06/19 02:27 96 Weight 259 lb 12.8 oz - Physical Exam General: alert & oriented x3 HEENT: mucus membranes moist Neck: supple neck Cardiac: regular rate and rhythm, systolic murmur Lungs: clear to auscultation Neuro: grossly intact Abdomen: active bowel sounds, soft, non-tender Extremities: no edema Skin: clear Musculoskeletal: no pain - Labs Result Diagrams: 02/05/19 06:00 02/06/19 04:58 Troponin/CKMB Troponin I Less than 0.010 ng/mL (< 0.028) 02/04/19 13:50 - Telemetry Sinus rhythms and dysrhythmias: sinus rhythm - Assessment/Plan Assessment/Plan: 1. Acute on chronic diastolic heart failure. 2. Posisble bronchitis 3. Hx of atrial tachycardia PLAN: - Will repeat echo to make sure LV function is unchanged. - Would give one more dose of IV lasix today.
[2019-02-06] MEDS ORDERED: Furosemide 40 MG/4 ML VIAL SLOW IVP SCH (13:30)
--- NOTE | 2019-02-06 13:50 | PRG ---
DATE OF SERVICE: 02/06/2019 SUBJECTIVE: He remains hypoxic on room air. He does say he is breathing better than he was a couple of days ago. OBJECTIVE: VITAL SIGNS: Temperature 98.2, pulse 70, respirations 20, O2 saturation 96% on 2 L, and blood pressure . HEENT: Unremarkable. NECK: No adenopathy or JVD. LUNGS: He has slightly diminished breath sounds in both bases. CARDIAC: S1 and S2, regular. ABDOMEN: Soft. EXTREMITIES: No edema. LABORATORY DATA: White blood cell count 11.3, hematocrit 34.4, and platelet count 163. Sodium 138, potassium 4, chloride 104, CO2 of 22, BUN 21, creatinine 1.6, and glucose 144. ASSESSMENT: 1. Bronchitis. 2. CTA demonstrates no evidence of pulmonary embolism, but does show some mild bilateral effusions indicating that there could be some component of diastolic dysfunction. PLAN: The patient may end up needing home oxygen for a short period of time. I have reviewed his orders, agree with the continued need for antibiotics. It looks like his renal function has been compromised, so his diuretics are being held. Continue nebulization treatments. Increase activity as tolerated. Job ID: [id number]
[2019-02-06] MEDS: Senokot S 8.6-50 MG TAB PO PRN (14:39)
[2019-02-06] MEDS: Famotidine 20 MG TAB PO SCH (21:09)
[2019-02-06] MEDS: Apixaban 2.5 MG TAB PO SCH (21:09)
[2019-02-06] MEDS: Atorvastatin Calcium 40 MG TAB PO SCH (21:09)
[2019-02-06] MEDS: Insulin Glargine 25 UNITS in Pre-Filled Syringe 1 EACH SC SCH (21:48)
--- NOTE | 2019-02-06 23:19 | PDOC.HOSPP ---
- Subjective Encounter Date: 02/06/19 Encounter Time: 16:00 Subjective: Patient seen and examined for CHF exacerbation. SOB improving. No CP. No new complaints. No overnight events - Objective Vital Signs & Weight: Vital Signs (12 hours) Temp Pulse Resp BP Pulse Ox 02/06/19 23:16 66 16 98 02/06/19 19:20 98.2 F 76 20 104/51 L 93 L 02/06/19 15:18 97.2 F L 77 20 105/52 L 95 02/06/19 13:49 72 22 H 92 L Weight Weight 259 lb 12.8 oz I&O: 02/05/19 02/06/19 02/07/19 06:59 06:59 06:59 Output Total 1075 Balance -1075 Result Diagrams: 02/05/19 06:00 02/07/19 06:10 Additional Labs: Accuchecks 02/06/19 02/06/19 02/06/19 20:29 17:13 11:30 POC Glucose 214 H 155 H 225 H EKG Reviewed by me: Yes (Tele SR) Hospitalist ROS - Review of Systems Respiratory: reports: SOB with excertion. denies: cough, dry, shortness of breath, hemoptysis, pleuritic pain, sputum, wheezing, other Cardiovascular: denies: chest pain, palpitations, orthopnea, paroxysmal noc. dyspnea, edema, light headedness, other - Medication Medications: Active Medications Generic Name Dose Route Start Last Admin Trade Name Freq PRN Reason Stop Dose Admin Albuterol/Ipratropium 3 ml 02/04/19 19:00 02/06/19 18:56 Duoneb NEB Not Given [id number] INDIGO Alogliptin Benzoate 25 mg 02/05/19 09:00 02/06/19 08:47 Alogliptin PO 25 mg DAILY INDIGO Administration Apixaban 2.5 mg 02/06/19 21:00 02/06/19 21:09 Eliquis PO 2.5 mg BID INDIGO Administration Aspirin 81 mg 02/06/19 09:00 02/06/19 08:46 Ecotrin PO 81 mg DAILY INDIGO Administration Atorvastatin Calcium 40 mg 02/04/19 21:00 02/06/19 21:09 Lipitor PO 40 mg HS INDIGO Administration Budesonide 0.5 mg 02/05/19 18:30 02/06/19 18:57 Pulmicort Neb Solution INH Not Given BID-RT INDIGO Carvedilol 3.125 mg 02/05/19 08:00 02/06/19 17:36 Coreg PO 3.125 mg BID-WM INDIGO Administration Diltiazem HCl 180 mg 02/05/19 09:00 02/06/19 08:46 Cardizem Cd PO 180 mg DAILY INDIGO Administration Famotidine 20 mg 02/04/19 21:00 02/06/19 21:09 Pepcid PO 20 mg QPM INDIGO Administration Guaifenesin 600 mg 02/04/19 21:00 02/06/19 21:09 Mucinex PO 600 mg Q12HR INDIGO Administration Levofloxacin 500 mg/ Device 100 mls @ 100 mls/hr 02/04/19 20:00 02/06/19 21: 07 IVPB 100 mls Q24HR INDIGO Administration Insulin Glargine 25 units/ 0.25 mls @ 0 mls/hr 02/04/19 21:00 02/06/19 21:48 Miscellaneous Medication SC 0.25 mls QPM INDIGO Administration Insulin Human Lispro 0 units 02/04/19 17:07 02/06/19 12:41 Humalog SC 4 unit .MODERATE SLIDING SC PRN Administration Moderate Correctional Scale Lisinopril 5 mg 02/05/19 09:00 02/06/19 08:47 Zestril PO 5 mg DAILY INDIGO Administration Ondansetron HCl 4 mg 02/04/19 17:07 02/04/19 23:29 Zofran IVP 4 mg Q6H PRN Administration Nausea/Vomiting Pantoprazole Sodium 40 mg 02/05/19 09:00 02/06/19 08:47 Protonix PO 40 mg DAILY INDIGO Administration Potassium Chloride 20 meq 02/06/19 09:00 02/06/19 08:46 K-Dur PO 20 meq DAILY INDIGO Administration Senna/Docusate Sodium 2 tab 02/04/19 17:07 02/06/19 14:39 Senokot S PO 2 tab BID PRN Administration Constipation Sodium Chloride 10 ml 02/04/19 21:00 02/06/19 21:10 Flush - Normal Saline IVF Not Given Q12HR INDIGO - Exam General Appearance: NAD Heart: RRR, no gallops Respiratory: no wheezes, no rales, rhonchi Gastrointestinal: soft, normal bowel sounds Extremities: no cyanosis Hosp A/P - Plan Acute hypoxic resp failure due to Acute on chronic diastolic HF Exacerbation Acute Bronchitis HTN DM2 CKD 3 Abn LFTS prob due to passive hepatic congestion (POA) Carotid stenosis - surgery postponed Par Afib Obesity BMI 34.3 PLAN: Cont IV diuretics with fluid restriction Restart Eliquis - I d/w Dr Senior Cont Lantus/sliding scale Cont other meds BMP in AM
[2019-02-07 06:41] LABS: ALT (SGPT) 8 U/L (8-55); AST (SGOT) 13 U/L (5-34); Albumin 3.2 g/dL (3.4-4.8); Alkaline Phosphatase 110 U/L (40-110); Anion Gap 11 mmol/L (10-20); BUN (Urea Nitrogen) 29 mg/dL (8.4-25.7); Bilirubin, Total 0.6 mg/dL (0.2-1.2); Calc. Creatinine Clearance 50 mL/min (70-130); Calcium 8.7 mg/dL (7.8-10.44); Carbon Dioxide 30 mmol/L (23-31); Chloride 105 mmol/L (98-107); Estimated GFR-MDRD 32; Globulin 2.8 g/dL (2.4-3.5); Glucose 140 mg/dL (83-110); Magnesium 2.3 mg/dL (1.6-2.6); Potassium 3.9 mmol/L (3.5-5.1); Sodium 142 mmol/L (136-145)
[2019-02-07] MEDS: Budesonide 0.5 MG/2 ML NEB INH SCH ×2 (08:03→18:19)
[2019-02-07] MEDS: Carvedilol 3.125 MG TAB PO SCH ×2 (08:53→17:14)
[2019-02-07] MEDS: Alogliptin 25 MG TAB PO SCH (08:53)
[2019-02-07] MEDS: Potassium Chloride 20 MEQ TAB PO SCH (08:54)
[2019-02-07] MEDS: Aspirin 81 mg Enteric Coated Tablet PO SCH (08:54)
[2019-02-07] MEDS: Lisinopril 5 MG TAB PO SCH (08:54)
[2019-02-07] MEDS: guaiFENesin ER 600 MG TAB PO SCH ×2 (08:54→20:35)
[2019-02-07] MEDS: Apixaban 2.5 MG TAB PO SCH ×2 (08:54→20:35)
[2019-02-07] MEDS: Senokot S 8.6-50 MG TAB PO PRN (08:55)
[2019-02-07] MEDS ORDERED: Polyethylene Glycol 3350 17 GM Packet PO PRN (09:28)
--- NOTE | 2019-02-07 09:49 | PRG ---
DATE OF SERVICE: 02/07/2019 SUBJECTIVE: He is feeling a little better than compared to yesterday. OBJECTIVE: VITAL SIGNS: Temperature 97.9, pulse rate 77, respirations are 16, and O2 saturation 93% on 3 L. HEENT: Unremarkable. NECK: No adenopathy or JVD. LUNGS: Fairly clear. CARDIAC: S1 and S2, regular. ABDOMEN: Soft. EXTREMITIES: Trace edema. LABORATORY DATA: Sodium 142, potassium 3.9, chloride 105, CO2 of 30, BUN 29, creatinine 1.9, and glucose 140. ASSESSMENT: 1. Acute exacerbation of bronchitis. 2. Diastolic heart dysfunction with increasing BUN and creatinine levels on the diuretics. PLAN: 1. Continue the oral antibiotics. 2. His diuretics were discontinued yesterday. 3. Monitor oxygenation. May end up needing home oxygen. Job ID: [id number]
[2019-02-07] MEDS: HumaLOG 300 UNITS/3 ML VIAL SC PRN (11:36)
--- NOTE | 2019-02-07 16:46 | PDOC.CPN ---
- Subjective Date: 02/07/19 Time: 16:44 Interval history: He is slowly improving. Breathing better and better. Most improvement seen with nebs. - Review of Systems General: denies: fever/chills, weight/appetite/sleep changes, night sweats, fatigue Respiratory: reports: cough. denies: congestion, shortness of breath, exercise intolerance Cardiovascular: denies: chest pain, palpitation, edema, paroxysmal nocturnal dyspnea, orthopnea Gastrointestinal: denies: nausea, vomiting, diarrhea, constipation, abd pain, GI bleeding Musculoskeletal: denies: pain, tenderness, stiffness, swelling, arthritis/ arthralgias Neurological: denies: numbness, syncope, seizure, weakness - Objective Allergies/Adverse Reactions: Allergies Allergy/AdvReac Type Severity Reaction Status Date / Time ciprofloxacin [From Cipro] Allergy Hives Verified 02/04/19 19:26 Visit Medications: Current Medications Acetaminophen (Tylenol) 650 mg PO Q4H PRN PRN Reason: Headache/Fever/Mild Pain (1-3) Albuterol/Ipratropium (Duoneb) 3 ml NEB [id number] [facility] Last Admin: 02/07/19 13:25 Dose: Not Given Alogliptin Benzoate (Alogliptin) 25 mg PO DAILY [facility] Last Admin: 02/07/19 08:53 Dose: 25 mg Apixaban (Eliquis) 2.5 mg PO BID [facility] Last Admin: 02/07/19 08:54 Dose: 2.5 mg Aspirin (Ecotrin) 81 mg PO DAILY [facility] Last Admin: 02/07/19 08:54 Dose: 81 mg Atorvastatin Calcium (Lipitor) 40 mg PO HS [facility] Last Admin: 02/06/19 21:09 Dose: 40 mg Bisacodyl (Dulcolax) 10 mg VT DAILYPRN PRN PRN Reason: Constipation Budesonide (Pulmicort Neb Solution) 0.5 mg INH BID-RT [facility] Last Admin: 02/07/19 08:03 Dose: 0.5 mg Carvedilol (Coreg) 3.125 mg PO BID-WM [facility] Last Admin: 02/07/19 08:53 Dose: 3.125 mg Dextrose/Water (Dextrose 50%) 25 gm SLOW IVP PRN PRN PRN Reason: Hypoglycemia Diltiazem HCl (Cardizem Cd) 180 mg PO DAILY [facility] Last Admin: 02/07/19 08:54 Dose: 180 mg Famotidine (Pepcid) 20 mg PO QPM [facility] Last Admin: 02/06/19 21:09 Dose: 20 mg Glucagon (Glucagon) 1 mg IM PRN PRN PRN Reason: Hypoglycemia Guaifenesin (Mucinex) 600 mg PO Q12HR [facility] Last Admin: 02/07/19 08:54 Dose: 600 mg Guaifenesin/Dextromethorphan (Robitussin Dm) 15 ml PO Q4H PRN PRN Reason: Cough Dextrose/Water (D5w) 1,000 mls @ 0 mls/hr IV .Q0M PRN PRN Reason: Hypoglycemia Levofloxacin 500 mg/ Device 100 mls @ 100 mls/hr IVPB Q24HR [facility] Last Admin: 02/06/19 21:07 Dose: 100 mls Insulin Glargine 25 units/ (Miscellaneous Medication) 0.25 mls @ 0 mls/hr SC QPM [facility] Last Admin: 02/06/19 21:48 Dose: 0.25 mls Insulin Human Lispro (Humalog) 0 units SC .MODERATE SLIDING SC PRN PRN Reason: Moderate Correctional Scale Last Admin: 02/07/19 11:36 Dose: 6 unit Insulin Human Lispro (Humalog) 0 units SC .BEDTIME SLIDING SC PRN PRN Reason: Bedtime Correctional Scale Lisinopril (Zestril) 5 mg PO DAILY [facility] Last Admin: 02/07/19 08:54 Dose: 5 mg Ondansetron HCl (Zofran) 4 mg IVP Q6H PRN PRN Reason: Nausea/Vomiting Last Admin: 02/04/19 23:29 Dose: 4 mg Pantoprazole Sodium (Protonix) 40 mg PO DAILY [facility] Last Admin: 02/07/19 08:54 Dose: 40 mg Polyethylene Glycol (Miralax) 17 gm PO DAILYPRN PRN PRN Reason: Constipation Senna/Docusate Sodium (Senokot S) 1 tab PO BID [facility] Sodium Chloride (Flush - Normal Saline) 10 ml IVF Q12HR [facility] Last Admin: 02/07/19 08:55 Dose: 10 ml Sodium Chloride (Flush - Normal Saline) 10 ml IVF PRN PRN PRN Reason: Saline Flush Zolpidem Tartrate (Ambien) 5 mg PO HS PRN PRN Reason: Insomnia Vital Signs & Weight: Vital Signs Temp Pulse Pulse Pulse Resp BP BP 02/07/19 16:17 98.2 F 68 23 H 02/07/19 11:50 74 73 125/58 L 127/59 L 02/07/19 11:46 98.9 F 71 22 H 02/07/19 08:04 02/07/19 08:03 77 16 02/07/19 07:19 97.9 F 77 18 BP Pulse Ox Pulse Ox Pulse Ox 02/07/19 16:17 119/60 99 02/07/19 11:50 93 L 95 02/07/19 11:46 114/57 L 97 02/07/19 08:04 93 L 02/07/19 08:03 02/07/19 07:19 133/61 92 L Weight 269 lb 6.4 oz - Physical Exam General: alert & oriented x3, appears well HEENT: mucus membranes moist Neck: supple neck, midline trachea Cardiac: regular rate and rhythm, no murmur Lungs: clear to auscultation Neuro: grossly intact Abdomen: active bowel sounds, soft, non-tender Extremities: no edema Skin: clear Musculoskeletal: no pain - Labs Result Diagrams: 02/05/19 06:00 02/07/19 06:10 Troponin/CKMB Troponin I Less than 0.010 ng/mL (< 0.028) 02/04/19 13:50 - Telemetry Sinus rhythms and dysrhythmias: sinus rhythm - Assessment/Plan Assessment/Plan: 1. Acute on chronic diastolic heart failure. 2. Bronchitis 3. Hx of atrial tachycardia PLAN: - Switch to PRN lasix per home dose. - Likely euvolemic now, - Continue pulmonary toilet. - Would hold off on any carotid surgery until cough from bronchitis is gone for at least a week.
[2019-02-07] MEDS: Senokot S 8.6-50 MG TAB PO SCH (20:35)
[2019-02-07] MEDS: Atorvastatin Calcium 40 MG TAB PO SCH (20:35)
[2019-02-07] MEDS: Insulin Glargine 25 UNITS in Pre-Filled Syringe 1 EACH SC SCH (20:35)
[2019-02-07] MEDS: Famotidine 20 MG TAB PO SCH (20:47)
[2019-02-08 04:57] LABS: Anion Gap 11 mmol/L (10-20); BUN (Urea Nitrogen) 25 mg/dL (8.4-25.7); Calc. Creatinine Clearance 71 mL/min (70-130); Calcium 8.9 mg/dL (7.8-10.44); Carbon Dioxide 30 mmol/L (23-31); Chloride 105 mmol/L (98-107); Estimated GFR-MDRD 48; Glucose 134 mg/dL (83-110); Potassium 4.1 mmol/L (3.5-5.1); Sodium 142 mmol/L (136-145)
[2019-02-08] MEDS: Budesonide 0.5 MG/2 ML NEB INH SCH ×3 (07:06→20:35)
--- NOTE | 2019-02-08 07:18 | PDOC.HOSPP ---
- Subjective Encounter Date: 02/07/19 Encounter Time: 13:00 Subjective: Patient seen and examined for CHF/Bronchitis. SOB improving. No CP. No new complaints. No overnight events - Objective Vital Signs & Weight: Vital Signs (12 hours) Temp Pulse Resp BP Pulse Ox 02/08/19 07:06 61 16 02/08/19 04:00 98.5 F 80 20 134/63 95 02/08/19 00:27 92 L 02/07/19 22:12 77 16 94 L Weight Weight 272 lb 4.8 oz I&O: 02/07/19 02/08/19 02/09/19 06:59 06:59 06:59 Intake Total 1080 Balance 1080 Result Diagrams: 02/05/19 06:00 02/08/19 04:26 Additional Labs: Accuchecks 02/08/19 02/07/19 02/07/19 05:42 20:37 16:47 POC Glucose 118 H 202 H 101 02/07/19 10:53 POC Glucose 255 H EKG Reviewed by me: Yes (Tele SR) Hospitalist ROS - Review of Systems Respiratory: reports: SOB with excertion. denies: cough, dry, shortness of breath, hemoptysis, pleuritic pain, sputum, wheezing, other Cardiovascular: denies: chest pain, palpitations, orthopnea, paroxysmal noc. dyspnea, edema, light headedness, other - Medication Medications: Active Medications Generic Name Dose Route Start Last Admin Trade Name Freq PRN Reason Stop Dose Admin Albuterol/Ipratropium 3 ml 02/04/19 19:00 02/08/19 07:06 Duoneb NEB 3 ml [id number] INDIGO Administration Alogliptin Benzoate 25 mg 02/05/19 09:00 02/07/19 08:53 Alogliptin PO 25 mg DAILY INDIGO Administration Apixaban 2.5 mg 02/06/19 21:00 02/07/19 20:35 Eliquis PO 2.5 mg BID INDIGO Administration Aspirin 81 mg 02/06/19 09:00 02/07/19 08:54 Ecotrin PO 81 mg DAILY INDIGO Administration Atorvastatin Calcium 40 mg 02/04/19 21:00 02/07/19 20:35 Lipitor PO 40 mg HS INDIGO Administration Budesonide 0.5 mg 02/05/19 18:30 02/08/19 07:06 Pulmicort Neb Solution INH 0.5 mg BID-RT INDIGO Administration Carvedilol 3.125 mg 02/05/19 08:00 02/07/19 17:14 Coreg PO 3.125 mg BID-WM INDIGO Administration Diltiazem HCl 180 mg 02/05/19 09:00 02/07/19 08:54 Cardizem Cd PO 180 mg DAILY INDIGO Administration Famotidine 20 mg 02/04/19 21:00 02/07/19 20:47 Pepcid PO Not Given QPM INDIGO Guaifenesin 600 mg 02/04/19 21:00 02/07/19 20:35 Mucinex PO 600 mg Q12HR INDIGO Administration Levofloxacin 500 mg/ Device 100 mls @ 100 mls/hr 02/04/19 20:00 02/07/19 20: 34 IVPB 100 mls Q24HR INDIGO Administration Insulin Glargine 25 units/ 0.25 mls @ 0 mls/hr 02/04/19 21:00 02/07/19 20:35 Miscellaneous Medication SC 0.25 mls QPM INDIGO Administration Insulin Human Lispro 0 units 02/04/19 17:07 02/07/19 11:36 Humalog SC 6 unit .MODERATE SLIDING SC PRN Administration Moderate Correctional Scale Lisinopril 5 mg 02/05/19 09:00 02/07/19 08:54 Zestril PO 5 mg DAILY INDIGO Administration Ondansetron HCl 4 mg 02/04/19 17:07 02/04/19 23:29 Zofran IVP 4 mg Q6H PRN Administration Nausea/Vomiting Pantoprazole Sodium 40 mg 02/05/19 09:00 02/07/19 08:54 Protonix PO 40 mg DAILY INDIGO Administration Senna/Docusate Sodium 1 tab 02/07/19 21:00 02/07/19 20:35 Senokot S PO 1 tab BID INDIGO Administration Sodium Chloride 10 ml 02/04/19 21:00 02/07/19 20:42 Flush - Normal Saline IVF 10 ml Q12HR INDIGO Administration - Exam General Appearance: NAD Heart: RRR, no rubs Respiratory: no wheezes, rhonchi Gastrointestinal: soft, normal bowel sounds Extremities: no edema Psychiatric: normal affect, A&O x 3 Hosp A/P - Plan Acute hypoxic resp failure due to Acute on chronic diastolic HF Exacerbation Acute Bronchitis HTN DM2 WILY on CKD 3 due to diuretics Abn LFTS prob due to passive hepatic congestion (POA) Carotid stenosis - surgery postponed Par Afib - on Eliquis Obesity BMI 34.3 PLAN: Cont Atbx/Nebs Lasix dced Cont current dose of Lantus with sliding scale Cont other meds AM labs
[2019-02-08] MEDS: Alogliptin 25 MG TAB PO SCH (09:40)
[2019-02-08] MEDS: Carvedilol 3.125 MG TAB PO SCH ×2 (09:40→17:23)
[2019-02-08] MEDS: Senokot S 8.6-50 MG TAB PO SCH ×2 (09:41→21:31)
[2019-02-08] MEDS: Lisinopril 5 MG TAB PO SCH (09:41)
[2019-02-08] MEDS: Aspirin 81 mg Enteric Coated Tablet PO SCH (09:41)
[2019-02-08] MEDS: guaiFENesin ER 600 MG TAB PO SCH ×2 (09:41→21:30)
[2019-02-08] MEDS: Apixaban 2.5 MG TAB PO SCH ×2 (09:41→21:30)
--- NOTE | 2019-02-08 12:32 | PDOC.HOSPP ---
- Subjective Encounter Date: 02/08/19 Encounter Time: 10:30 Subjective: Patient seen and examined for Resp failure. SOB improving. No CP. SOB on mild exertion. No new complaints. No overnight events - Objective Vital Signs & Weight: Vital Signs (12 hours) Temp Pulse Resp BP Pulse Ox 02/08/19 11:34 97.5 F L 81 28 H 115/58 L 97 02/08/19 07:11 97.7 F 65 16 144/67 H 98 02/08/19 07:06 61 16 02/08/19 04:00 98.5 F 80 20 134/63 95 02/08/19 00:27 92 L Weight Weight 272 lb 4.8 oz I&O: 02/07/19 02/08/19 02/09/19 06:59 06:59 06:59 Intake Total 1080 Balance 1080 Result Diagrams: 02/05/19 06:00 02/08/19 04:26 Additional Labs: Accuchecks 02/08/19 02/08/19 02/07/19 10:59 05:42 20:37 POC Glucose 226 H 118 H 202 H 02/07/19 16:47 POC Glucose 101 EKG Reviewed by me: Yes (Tele SR) Hospitalist ROS - Review of Systems Constitutional: denies: fever, chills, sweats, weakness, malaise, other - Medication Medications: Active Medications Generic Name Dose Route Start Last Admin Trade Name Freq PRN Reason Stop Dose Admin Albuterol/Ipratropium 3 ml 02/04/19 19:00 02/08/19 07:06 Duoneb NEB 3 ml [id number] INDIGO Administration Alogliptin Benzoate 25 mg 02/05/19 09:00 02/08/19 09:40 Alogliptin PO 25 mg DAILY INDIGO Administration Apixaban 2.5 mg 02/06/19 21:00 02/08/19 09:41 Eliquis PO 2.5 mg BID INDIGO Administration Aspirin 81 mg 02/06/19 09:00 02/08/19 09:41 Ecotrin PO 81 mg DAILY INDIGO Administration Atorvastatin Calcium 40 mg 02/04/19 21:00 02/07/19 20:35 Lipitor PO 40 mg HS INDIGO Administration Budesonide 0.5 mg 02/05/19 18:30 02/08/19 07:06 Pulmicort Neb Solution INH 0.5 mg BID-RT INDIGO Administration Carvedilol 3.125 mg 02/05/19 08:00 02/08/19 09:40 Coreg PO 3.125 mg BID-WM INDIGO Administration Diltiazem HCl 180 mg 02/05/19 09:00 02/08/19 09:41 Cardizem Cd PO 180 mg DAILY INDIGO Administration Famotidine 20 mg 02/04/19 21:00 02/07/19 20:47 Pepcid PO Not Given QPM INDIGO Guaifenesin 600 mg 02/04/19 21:00 02/08/19 09:41 Mucinex PO 600 mg Q12HR INDIGO Administration Levofloxacin 500 mg/ Device 100 mls @ 100 mls/hr 02/04/19 20:00 02/07/19 20: 34 IVPB 100 mls Q24HR INDIGO Administration Insulin Glargine 25 units/ 0.25 mls @ 0 mls/hr 02/04/19 21:00 02/07/19 20:35 Miscellaneous Medication SC 0.25 mls QPM INDIGO Administration Insulin Human Lispro 0 units 02/04/19 17:07 02/07/19 11:36 Humalog SC 6 unit .MODERATE SLIDING SC PRN Administration Moderate Correctional Scale Lisinopril 5 mg 02/05/19 09:00 02/08/19 09:41 Zestril PO 5 mg DAILY INDIGO Administration Ondansetron HCl 4 mg 02/04/19 17:07 02/04/19 23:29 Zofran IVP 4 mg Q6H PRN Administration Nausea/Vomiting Pantoprazole Sodium 40 mg 02/05/19 09:00 02/08/19 09:41 Protonix PO 40 mg DAILY INDIGO Administration Senna/Docusate Sodium 1 tab 02/07/19 21:00 02/08/19 09:41 Senokot S PO Not Given BID INDIGO Sodium Chloride 10 ml 02/04/19 21:00 02/08/19 09:42 Flush - Normal Saline IVF 10 ml Q12HR INDIGO Administration - Exam General Appearance: NAD Heart: RRR, no gallops Respiratory: no wheezes, rhonchi Gastrointestinal: normal bowel sounds Extremities: no edema Hosp A/P - Plan Acute hypoxic resp failure due to Acute on chronic diastolic HF Exacerbation Acute Bronchitis HTN DM2 WILY on CKD 3 due to diuretics Abn LFTS prob due to passive hepatic congestion (POA) Carotid stenosis - surgery postponed Par Afib - on Eliquis Obesity BMI 34.3 PLAN: Cont Levaquin/Nebs Cont Lantus/sliding scale Patient will require Home O2 setup. O2 sats on RA - 84% Cont other meds as above
[2019-02-08] MEDS: HumaLOG 300 UNITS/3 ML VIAL SC PRN (12:45)
--- NOTE | 2019-02-08 18:55 | PRG ---
DATE OF SERVICE: 02/08/2019 SERVICE: Pulmonary Medicine. INTERVAL HISTORY: The patient is doing fine from respiratory standpoint. He is breathing comfortably. No complaints of chest discomfort, nausea, vomiting, fevers, or chills. Otherwise, there has been no interval change to his condition. He is able to walk 300 feet today. This was actually much improved compared to yesterday. That being said, on room air, saturations are low. PHYSICAL EXAMINATION: VITAL SIGNS: Afebrile, pulse 66, blood pressure 112/55, respirations 22, saturation 95% on 3 L nasal cannula. GENERAL: The patient is awake and alert, in no apparent distress. LUNGS: Very good air entry. No prolonged expiratory phase or wheezing is appreciated. There are minimal dependent crackles noted bibasilarly. HEART: Normal rate and regular. ABDOMEN: Soft, nontender, nondistended. Bowel sounds are positive. MUSCULOSKELETAL: No cyanosis or clubbing. There is no pitting in the bilateral lower extremities. NEUROLOGIC: Grossly nonfocal. LABORATORY DATA: Potassium 4.1, creatinine 1.41. Basic metabolic profile is otherwise unremarkable. ASSESSMENT: 1. Acute hypoxic respiratory failure. 2. Acute on chronic diastolic heart failure. 3. Chronic kidney disease, stage 3. 4. Acute bronchitis. 5. Obstructive sleep apnea. DISCUSSION AND PLAN: This patient may very well have some chronic lung disease. This can be further detailed in the outpatient setting. Pulmonary/Critical Care will continue to follow along while the patient remains inhouse. We will continue to diurese him down to euvolemia, but if we optimize medical issues and he still requires oxygen with exertion and performs better with it, we may need to temporally set it up from the outpatient setting. Antibiotics can be discontinued after 7 days. He has completed a dose of steroids. He is a touch volume up. As such, provide him with a single dose of Lasix tomorrow morning. Pulmonary/Critical Care will continue to follow along while he remains inhouse. If he is doing well until tomorrow, he can be considered for transition out of the hospital. Job ID: [id number]
[2019-02-08] MEDS: Famotidine 20 MG TAB PO SCH (21:30)
[2019-02-08] MEDS: Atorvastatin Calcium 40 MG TAB PO SCH (21:30)
[2019-02-08] MEDS: Insulin Glargine 25 UNITS in Pre-Filled Syringe 1 EACH SC SCH (21:32)
[2019-02-09] MEDS ORDERED: Furosemide 40 MG/4 ML VIAL SLOW IVP SCH (06:00)
[2019-02-09] MEDS: Budesonide 0.5 MG/2 ML NEB INH SCH (07:24)
[2019-02-09] MEDS: Lisinopril 5 MG TAB PO SCH (10:38)
[2019-02-09] MEDS: guaiFENesin ER 600 MG TAB PO SCH (10:38)
[2019-02-09] MEDS: Alogliptin 25 MG TAB PO SCH (10:38)
[2019-02-09] MEDS: Apixaban 2.5 MG TAB PO SCH (10:38)
[2019-02-09] MEDS: Carvedilol 3.125 MG TAB PO SCH (10:38)
[2019-02-09] MEDS: Aspirin 81 mg Enteric Coated Tablet PO SCH (10:39)
[2019-02-09] MEDS: Senokot S 8.6-50 MG TAB PO SCH (10:39)
[2019-02-09 12:13] VITALS: TEMP 98.6
[2019-02-09 12:16] VITALS: BP 131/60
[2019-02-09] MEDS: HumaLOG 300 UNITS/3 ML VIAL SC PRN (13:16)
--- NOTE | 2019-02-09 19:40 | DIS ---
DATE OF ADMISSION: 02/04/2019 DATE OF DISCHARGE: 02/09/2019 DISCHARGE DISPOSITION: Home. FOLLOWUP: 1. Follow up with primary care physician, Dr. Zaman in 1 week. 2. Follow up with Cardiology, Dr. Senoir as scheduled. ALLERGIES: THE PATIENT IS ALLERGIC TO CIPROFLOXACIN. DISCHARGE MEDICATIONS: 1. Omnicef 300 mg b.i.d. for next 2 days. 2. Mucinex 600 mg twice daily for next week or so. All other home medications were left unchanged. The patient was seen and examined on the day of discharge. Denies any new complaints. Shortness of breath has significantly improved. BRIEF HOSPITAL COURSE: The patient is an 79-year-old male with chronic diastolic heart failure, presented to the hospital with shortness of breath and cough. He had a temperature of 100-degree Fahrenheit. Please refer to the history and physical for further details. The patient was admitted to the hospital with a diagnosis of acute hypoxic respiratory failure secondary to acute on chronic diastolic heart failure exacerbation as well as acute bronchitis. He showed good improvement with diuretics along with empiric antibiotics and nebulizer treatment. He was seen by Cardiology as well as Pulmonology. His symptoms have significantly improved. He qualified for home O2, which has been arranged. He has been cleared by Cardiology and Pulmonary for discharge. FINAL DIAGNOSES: 1. Acute hypoxic respiratory failure, present on admission. 2. Acute on chronic diastolic heart failure exacerbation, present on admission. 3. Acute bronchitis, present on admission. 4. Hypertension. 5. Diabetes mellitus, type 2. 6. Acute kidney injury on chronic kidney disease stage 3 secondary to diuretics. His creatinine on admission was 1.5, at discharge is 1.41. Maximum creatinine was 1.99. 7. Abnormal LFTs secondary to passive hepatic congestion. 8. Carotid stenosis. The patient will follow up with Dr. Andino next month. 9. Paroxysmal atrial fibrillation, on Eliquis. 10. Obesity with a BMI of 34.3. PLAN: Plan was discussed with the patient in detail. He stated understanding. Job ID: [id number]
--- NOTE | 2019-02-10 22:32 | PQF ---
DENISSE RAY MALIK MD [id number] [facility]-Critical access hospital [id number] CLINICAL DOCUMENTATION CLARIFICATION FORM: POST DISCHARGE Addendum to original discharge summary date: ____ Late entry note date: __ DATE: 02/10/19 ATTN: Tutu Potts Please exercise your independent, professional judgment in responding to the clarification form. Clinical indicators are provided on the bottom of this form for your review Please check appropriate box(es): [ ] Sepsis due to Acute Bronchitis [x ] Severe sepsis with acute organ dysfunction of respiratory failure (Examples: respiratory failure, encephalopathy, acute kidney failure, other) [ ] Septic Shock [ ] Localized infection without sepsis [ ] Other diagnosis [ ] Unable to determine In addition, please specify: Present on Admission (POA): [ x ] Yes [ ] No [ ] Unable to determine For continuity of documentation, please document condition throughout progress notes and discharge summary. Thank You. CLINICAL INDICATORS - SIGNS / SYMPTOMS / LABS H&P p1 02/04 Dr Reaves the patient gives history of very weak with SOB H&P p1 02/04 Dr Reaves they did an x-ray there and the pt had a temperature of 100 degrees and was sent to ER H&P p1 02/04 Dr Reaves He has had cough with expectoration, but has not seen color of sputum as such H&P p1 02/04 Dr Reaves Vital Signs: BP 128/60, pulse 84, resp rate 24 RISK FACTORS H&P p1 02/04 - 79 years-old H&P p1 02/04 - Acute Bronchitis Hospitalist PN p5 01/06 Acute hypoxic Respiratory failure TREATMENTS: Respiratory Panel 02/04 Cpap MAY 14 IV Levofloxacin MAY 14 DuoNeb MAY 14 IV Lasix (This form is maintained as a part of the permanent medical record) 2014 [email or web address] All Rights Reserved [email or web address] [not provided] MTDD
== END 2019-02-09 16:08 | disposition home or self-care (01) | DRG 871 ==
LOC: ERS 13:10 → 2SW 17:50 → OBSVTOIN 17:50 → 2NO 02-06 19:16
PROVIDERS: ADMIT Internal Medicine; ATTEND Internal Medicine
PROC: 5A09357 Assistance with Respiratory Ventilation, Less than 24 Consecutive Hours, Continuous Positive Airway Pressure (ICD-10-PCS; principal; 2019-02-05)
DX: A41.9 Sepsis, unspecified organism (principal); I50.33 Acute on chronic diastolic (congestive) heart failure; J96.01 Acute respiratory failure with hypoxia; I13.0 Hypertensive heart and chronic kidney disease with heart failure and stage 1 through stage 4 chronic kidney disease, or unspecified chronic kidney disease; N17.9 Acute kidney failure, unspecified; R65.20 Severe sepsis without septic shock; J20.9 Acute bronchitis, unspecified; E11.22 Type 2 diabetes mellitus with diabetic chronic kidney disease; N18.3 Chronic kidney disease, stage 3 (moderate); I48.0 Paroxysmal atrial fibrillation; K76.1 Chronic passive congestion of liver; E66.01 Morbid (severe) obesity due to excess calories; I65.29 Occlusion and stenosis of unspecified carotid artery; I25.10 Atherosclerotic heart disease of native coronary artery without angina pectoris; F32.9 Major depressive disorder, single episode, unspecified; G47.33 Obstructive sleep apnea (adult) (pediatric); Z68.34 Body mass index [BMI] 34.0-34.9, adult; I25.2 Old myocardial infarction; Z79.899 Other long term (current) drug therapy; Z79.4 Long term (current) use of insulin; Z79.01 Long term (current) use of anticoagulants; Z88.1 Allergy status to other antibiotic agents; Z95.5 Presence of coronary angioplasty implant and graft; Z79.82 Long term (current) use of aspirin
CPT/HCPCS: 36415; 36416; 71046; 71275; 80048; 80053; 82550; 83605; 83690; 83735; 83880; 84443; 84484; 85025; 93005; 93306; 93798; 94640; 94660; 94760; 96365; 96367; J0456; J0696; J1815; J1940; J1956; J2405; J7050; J7620; J7626

== ENCOUNTER 2019-07-23 06:53 | Outpatient (CLI) | payer MEDICARE, OTHER ==
[2019-07-23 12:12] LABS: INR-International Normal Ratio 0.9; PTT 28.5 SEC (22.9-36.1); Prothrombin Time 12.5 sec (12.0-14.7)
[2019-07-23 12:28] LABS: #Eosinphils 0.8 thou/uL (0.0-0.7); #Lymphocytes 1.2 thou/uL (1.20-3.40); #Monocytes 0.7 thou/uL (0.11-0.59); #Neutrophils 5.3 thou/uL (1.40-6.50); %Basophils 0.4 % (0.0-1.0); %Eosinophils 9.5 % (0.0-10.0); %Lymphocytes 15.4 % (21.0-51.0); %Monocytes 8.7 % (0.0-10.0); Anisocytosis SLIGHT = 6-15 cells (100X) (0-5/hpf); Hemoglobin 10.8 g/dL (14.0-18.0); Large Platelets SLIGHT; MDiff Complete? YES; Mean Corpuscular HGB CONC 30.3 g/dL (32.0-36.0); Mean Corpuscular Hemoglobin 21.9 pg (27.0-31.0); Mean Corpuscular Volume 72.3 fL (78.0-98.0); Mean Platelet Volume 12.4 fL (7.4-10.4); Microcytosis SLIGHT = 6-15 cells (100X) (0-5/hpf); Ovalocytes SLIGHT = 2-5 cells (100X) (0-1/hpf); Platelet Count 132 thou/uL (130-400); Platelet Morphology Comment Appears Adequate; Poikilocytosis SLIGHT = 6-15 cells (100X) (0-5/hpf); RBC Distribution Width 16.8 % (11.5-14.5); Red Blood Cell (RBC) Count 4.92 mill/uL (4.70-6.10)
[2019-07-23 12:31] LABS: Anion Gap 13 mmol/L (10-20); BUN (Urea Nitrogen) 25 mg/dL (8.4-25.7); Calc. Creatinine Clearance 0 mL/min (70-130); Calcium 8.5 mg/dL (7.8-10.44); Carbon Dioxide 25 mmol/L (23-31); Chloride 105 mmol/L (98-107); Estimated GFR-MDRD 39; Glucose 157 mg/dL (83-110); Potassium 4.5 mmol/L (3.5-5.1); Sodium 138 mmol/L (136-145)
[2019-07-23 20:13] LABS: SARS-CoV-2 MS2 Positive; SARS-CoV-2 N Gene Negative; SARS-CoV-2 S Gene Negative; SARS-CoV-2 orf1ab Negative
--- NOTE | 2019-07-23 22:14 | EKG ---
Test Reason : Blood Pressure : / mmHG Vent. Rate : 070 BPM Atrial Rate : 070 BPM P-R Int : 198 ms QRS Dur : 092 ms QT Int : 384 ms P-R-T Axes : 041 087 026 degrees QTc Int : 414 ms Normal sinus rhythm Normal ECG When compared with ECG of 04-FEB-2019 13:18, No significant change was found Confirmed by Hao NICKERSON ([id number]) on 07/23/2019 10:13:52 PM Referred By: GURJIT Confirmed By:Hao NICKERSON
== END 2019-07-23 06:54 | disposition home or self-care (01) ==
LOC: LABBT 06:53
PROVIDERS: ATTEND Internal Medicine Cardiovascular Disease
DX: Z01.818 Encounter for other preprocedural examination (principal); Z11.59 Encounter for screening for other viral diseases; I48.91 Unspecified atrial fibrillation
CPT/HCPCS: 80048; 85025; 85610; 85730; 87635; 93005; 93010; U0003

== ENCOUNTER 2019-07-25 | Day surgery (SDC) | payer MEDICARE | END 2019-07-25 10:03 | disposition home or self-care (01) | PROC: B24BZZ4 Ultrasonography of Heart with Aorta, Transesophageal (ICD-10-PCS; principal; 2019-07-25) | DX: I48.91 Unspecified atrial fibrillation (principal); I48.4 Atypical atrial flutter; G47.33 Obstructive sleep apnea (adult) (pediatric); I25.10 Atherosclerotic heart disease of native coronary artery without angina pectoris; I10 Essential (primary) hypertension; E78.5 Hyperlipidemia, unspecified; E11.9 Type 2 diabetes mellitus without complications; K21.9 Gastro-esophageal reflux disease without esophagitis; I25.2 Old myocardial infarction; Z79.01 Long term (current) use of anticoagulants; Z79.4 Long term (current) use of insulin; Z79.899 Other long term (current) drug therapy; Z88.1 Allergy status to other antibiotic agents; Z95.5 Presence of coronary angioplasty implant and graft; Z95.818 Presence of other cardiac implants and grafts ==

== ENCOUNTER 2020-01-26 10:04 | Outpatient (CLI) | payer MEDICARE ==
--- NOTE | 2020-01-26 10:26 | RAD ---
2 VIEW CHEST: Date: 01/26/2020 INDICATION: Dyspnea. COMPARISON: 02/06/2019. FINDINGS: Mild cardiomegaly is stable. Vascular markings mildly prominent. The interstitium is thickened, but s imilar to the prior exam. Opacification of right CP angle and pleural thickening along the right late ral chest is stable possibly representing chronic effusion or pleural reaction. IMPRESSION: The chest findings are stable from 02/06/2019 with findings as described. POS: BOBO
== END 2020-01-26 10:05 | disposition home or self-care (01) ==
LOC: BICRAD 10:04
PROVIDERS: ATTEND Internal Medicine Critical Care Medicine
DX: R06.00 Dyspnea, unspecified (principal)
CPT/HCPCS: 71046

== ENCOUNTER 2020-05-23 19:18 | Emergency (ER) | payer MEDICARE ==
[~2020-05-23 19:18] MED LIST changes: -ISOVUE-370 76%-LOCM 1 ML ONE; +Iopamidol 370 76% 100 ML VIAL ONE
[2020-05-23] MEDS ORDERED: Ibuprofen 800 MG TAB ONE (20:06)
[2020-05-23 20:09] LABS: #Eosinphils 0.2 thou/uL (0.0-0.7); #Lymphocytes 0.9 thou/uL (1.20-3.40); #Neutrophils 9.5 thou/uL (1.40-6.50); %Basophils 0.2 % (0.0-1.0); %Eosinophils 1.9 % (0.0-10.0); %Lymphocytes 7.8 % (21.0-51.0); %Monocytes 8.8 % (0.0-10.0); %Neutrophils 81.2 % (42.0-75.0); Hemoglobin 11.9 g/dL (14.0-18.0); Mean Corpuscular HGB CONC 31.9 g/dL (32.0-36.0); Mean Corpuscular Hemoglobin 23.7 pg (27.0-31.0); Mean Corpuscular Volume 74.3 fL (78.0-98.0); Mean Platelet Volume 11.3 fL (7.4-10.4); Platelet Count 111 thou/uL (130-400); RBC Distribution Width 16.4 % (11.5-14.5); Red Blood Cell (RBC) Count 5.04 mill/uL (4.70-6.10); White Blood Cell (WBC) Count 11.6 thou/uL (4.8-10.8)
[2020-05-23 20:24] LABS: Anisocytosis SLIGHT = 6-15 cells (100X) (0-5/hpf); Hypochromia SLIGHT = 6-15 cells (100X) (0-5/hpf); MDiff Complete? YES; Microcytosis SLIGHT = 6-15 cells (100X) (0-5/hpf); Ovalocytes SLIGHT = 2-5 cells (100X) (0-1/hpf); Platelet Morphology Comment Appears Decreased; Polychromasia SLIGHT = 2-3 cells (100X) (0-2/hpf)
[2020-05-23 20:30] LABS: ALT (SGPT) 14 U/L (8-55); AST (SGOT) 20 U/L (5-34); Albumin 3.9 g/dL (3.4-4.8); Alkaline Phosphatase 152 U/L (40-110); Anion Gap 15 mmol/L (10-20); BUN (Urea Nitrogen) 27 mg/dL (8.4-25.7); Bilirubin, Total 0.8 mg/dL (0.2-1.2); Calc. Creatinine Clearance 0 mL/min (70-130); Calcium 8.6 mg/dL (7.8-10.44); Carbon Dioxide 24 mmol/L (23-31); Chloride 104 mmol/L (98-107); Glucose 140 mg/dL (83-110); Potassium 4.7 mmol/L (3.5-5.1); Protein, Total 6.9 g/dL (5.8-8.1); Sodium 138 mmol/L (136-145)
== END 2020-05-23 22:37 | disposition home or self-care (01) ==
LOC: ERS 19:18
DX: R50.83 Postvaccination fever (principal); T50.B95A Adverse effect of other viral vaccines, initial encounter; R06.00 Dyspnea, unspecified; I25.10 Atherosclerotic heart disease of native coronary artery without angina pectoris; I48.91 Unspecified atrial fibrillation; E11.9 Type 2 diabetes mellitus without complications; I25.2 Old myocardial infarction
CPT/HCPCS: 71045; 71275; 80053; 83880; 84484; 85025; 85379; 93005; Q9967

== ENCOUNTER 2022-04-19 13:32 | Inpatient (IN) | payer MEDICARE ==
[2022-04-19 14:05] LABS: #Basophils 0.1 thou/uL (0.0-0.2); #Eosinphils 0.6 thou/uL (0.0-0.7); #Lymphocytes 1.3 thou/uL (1.20-3.40); #Monocytes 0.5 thou/uL (0.11-0.59); #Neutrophils 5.7 thou/uL (1.40-6.50); %Basophils 0.7 % (0.0-1.0); %Eosinophils 7.4 % (0.0-10.0); %Lymphocytes 15.9 % (21.0-51.0); %Monocytes 5.7 % (0.0-10.0); %Neutrophils 70.2 % (42.0-75.0); Hemoglobin 14.3 g/dL (14.0-18.0); Mean Corpuscular HGB CONC 31.9 g/dL (32.0-36.0); Mean Corpuscular Hemoglobin 27.8 pg (27.0-31.0); Mean Corpuscular Volume 87.1 fl (78.0-98.0); Platelet Count 168 10x3/uL (130-400); RBC Distribution Width 14.3 % (11.5-14.5); Red Blood Cell (RBC) Count 5.16 mill/uL (4.70-6.10); White Blood Cell (WBC) Count 8.1 10x3/uL (4.8-10.8)
[2022-04-19 14:26] LABS: ALT (SGPT) 9 U/L (8-55); AST (SGOT) 16 U/L (5-34); Albumin 3.9 g/dL (3.4-4.8); Alkaline Phosphatase 145 U/L (40-110); Anion Gap 14 mmol/L (10-20); BUN (Urea Nitrogen) 34 mg/dL (8.4-25.7); Bilirubin, Total 0.7 mg/dL (0.2-1.2); Calc. Creatinine Clearance 0 mL/min (70-130); Carbon Dioxide 25 mmol/L (23-31); Chloride 105 mmol/L (98-107); Estimated GFR 38; Globulin 2.9 g/dL (2.4-3.5); Glucose 136 mg/dL (83-110); Lipase 77 U/L (8-78); Potassium 4.6 mmol/L (3.5-5.1); Protein, Total 6.8 g/dL (5.8-8.1); Sodium 139 mmol/L (136-145)
[2022-04-19 17:13] LABS: Bilirubin Negative (Negative); Blood, Urine Negative (Negative); Clarity Clear (Clear); Glucose, Urine (Dipstick) Normal (Negative); Ketone, Urine Negative (Negative); Leukocyte Negative Leu/uL (Negative); Nitrite Negative (Negative); Protein, Urine (Dipstick) Negative (Neg-Trace); Specific Gravity, Urine 1.021 (1.002-1.036); Urobilinogen Normal mg/dL (Less than 2)
[2022-04-19 17:34] LABS: INR-International Normal Ratio 1.1; PTT 28.5 sec (22.9-36.1); Prothrombin Time 14.2 sec (12.0-14.7)
[2022-04-19] MEDS ORDERED: Pantoprazole 40 MG VIAL ONE (17:43)
[2022-04-19] MEDS ORDERED: Senokot S 8.6-50 MG TAB PO PRN (18:00)
[2022-04-19] MEDS ORDERED: HYDROcodone/Acetaminophen 5/325 mg Tablet PO PRN (18:00)
[2022-04-19] MEDS ORDERED: Ondansetron PF 4 MG/2 ML Vial IVP PRN (18:00)
[2022-04-19] MEDS ORDERED: Acetaminophen 325 MG TAB PO PRN (18:00)
[2022-04-19] MEDS ORDERED: Dextrose 50% Abboject 50 ML SYRINGE SLOW IVP PRN (18:02)
[2022-04-19] MEDS ORDERED: HumaLOG 300 UNITS/3 ML VIAL SC PRN (18:02)
[2022-04-19] MEDS ORDERED: Dextrose 5% in Water 1,000 ML IV PRN (18:02)
[2022-04-19 19:26] VITALS: BMI 33.9
[2022-04-19 19:34] LABS: Hemoglobin 13.8 g/dL (14.0-18.0); Platelet Count 160 10x3/uL (130-400)
[2022-04-20 01:13] LABS: Hemoglobin 12.2 g/dL (14.0-18.0); Platelet Count 152 10x3/uL (130-400)
[2022-04-20] MEDS ORDERED: Sodium Chloride 0.9% 500 ML IV SCH (05:15)
[2022-04-20] MEDS: Sodium Chloride 0.9% 1,000 ML IV SCH ×2 (05:37→14:48)
[2022-04-20 06:30] LABS: #Eosinphils 0.6 thou/uL (0.0-0.7); #Lymphocytes 1.4 thou/uL (1.20-3.40); #Monocytes 0.6 thou/uL (0.11-0.59); #Neutrophils 6.6 thou/uL (1.40-6.50); %Basophils 0.3 % (0.0-1.0); %Eosinophils 6.4 % (0.0-10.0); %Monocytes 6.1 % (0.0-10.0); %Neutrophils 72.2 % (42.0-75.0); Hemoglobin 11.8 g/dL (14.0-18.0); Mean Corpuscular HGB CONC 32.7 g/dL (32.0-36.0); Mean Corpuscular Hemoglobin 28.5 pg (27.0-31.0); Mean Corpuscular Volume 87.2 fl (78.0-98.0); Mean Platelet Volume 9.5 fL (7.4-10.4); Platelet Count 159 10x3/uL (130-400); RBC Distribution Width 14.2 % (11.5-14.5); Red Blood Cell (RBC) Count 4.15 mill/uL (4.70-6.10); White Blood Cell (WBC) Count 9.1 10x3/uL (4.8-10.8)
[2022-04-20 06:31] LABS: Hemoglobin 11.9 g/dL (14.0-18.0); Platelet Count 152 10x3/uL (130-400)
[2022-04-20 06:53] LABS: Anion Gap 15 mmol/L (10-20); BUN (Urea Nitrogen) 35 mg/dL (8.4-25.7); Calc. Creatinine Clearance 58 mL/min (70-130); Calcium 8.6 mg/dL (7.8-10.44); Carbon Dioxide 20 mmol/L (23-31); Chloride 110 mmol/L (98-107); Estimated GFR 48; Glucose 153 mg/dL (83-110); Potassium 3.8 mmol/L (3.5-5.1); Sodium 141 mmol/L (136-145)
[2022-04-20] MEDS: Pantoprazole 40 MG VIAL IVP SCH ×2 (08:18→19:35)
[2022-04-20] MEDS ORDERED: Iopamidol-370 76% 500 ML 1 ML ONE (12:20)
[2022-04-20 13:41] LABS: Hemoglobin 10.6 g/dL (14.0-18.0); Platelet Count 136 10x3/uL (130-400)
[2022-04-20] MEDS ORDERED: GoLYTELY 4,000 ml Bottle PO SCH (17:00)
[2022-04-20 22:36] LABS: Hemoglobin 11.5 g/dL (14.0-18.0)
[2022-04-21] MEDS: Sodium Chloride 0.9% 1,000 ML IV SCH (01:10)
[2022-04-21 07:37] LABS: #Eosinphils 0.4 thou/uL (0.0-0.7); #Lymphocytes 0.9 thou/uL (1.20-3.40); #Monocytes 0.5 thou/uL (0.11-0.59); #Neutrophils 3.8 thou/uL (1.40-6.50); %Basophils 0.2 % (0.0-1.0); %Eosinophils 6.9 % (0.0-10.0); %Monocytes 8.2 % (0.0-10.0); %Neutrophils 68.8 % (42.0-75.0); Hemoglobin 10.6 g/dL (14.0-18.0); Mean Corpuscular HGB CONC 32.5 g/dL (32.0-36.0); Mean Corpuscular Hemoglobin 28.3 pg (27.0-31.0); Mean Corpuscular Volume 87.1 fl (78.0-98.0); Mean Platelet Volume 9.3 fL (7.4-10.4); Platelet Count 148 10x3/uL (130-400); RBC Distribution Width 14.3 % (11.5-14.5); Red Blood Cell (RBC) Count 3.73 mill/uL (4.70-6.10); White Blood Cell (WBC) Count 5.5 10x3/uL (4.8-10.8)
[2022-04-21 08:04] LABS: Anion Gap 14 mmol/L (10-20); BUN (Urea Nitrogen) 20 mg/dL (8.4-25.7); Calc. Creatinine Clearance 67 mL/min (70-130); Calcium 8.5 mg/dL (7.8-10.44); Carbon Dioxide 19 mmol/L (23-31); Chloride 114 mmol/L (98-107); Estimated GFR 57; Glucose 147 mg/dL (83-110); Potassium 3.4 mmol/L (3.5-5.1); Sodium 144 mmol/L (136-145)
[2022-04-21] MEDS ORDERED: PROPOFOL 200 MG/20 ML VIAL ONE (09:04)
[2022-04-21] MEDS ORDERED: Lidocaine 1% PF 5 ML VIAL ONE (09:04)
[2022-04-21] MEDS: Pantoprazole 40 MG VIAL IVP SCH (10:34)
[2022-04-21 10:43] VITALS: BP 124/70; TEMP 97.5
[2022-04-21] MEDS ORDERED: Potassium Chloride 20 MEQ TAB PO SCH (12:45)
== END 2022-04-21 14:01 | disposition home or self-care (01) | DRG 378 ==
LOC: ERS 13:32 → T4-A 18:40 → OBSVTOIN 04-21 12:21
PROVIDERS: ADMIT Family Medicine; ATTEND Internal Medicine
PROC: 0DJ08ZZ Inspection of Upper Intestinal Tract, Via Natural or Artificial Opening Endoscopic (ICD-10-PCS; principal; 2022-04-21)
PROC: 0DBM8ZZ Excision of Descending Colon, Via Natural or Artificial Opening Endoscopic (ICD-10-PCS; 2022-04-21)
DX: K57.31 Diverticulosis of large intestine without perforation or abscess with bleeding (principal); D62 Acute posthemorrhagic anemia; I48.92 Unspecified atrial flutter; N18.30 Chronic kidney disease, stage 3 unspecified; E78.5 Hyperlipidemia, unspecified; I25.10 Atherosclerotic heart disease of native coronary artery without angina pectoris; I48.0 Paroxysmal atrial fibrillation; K63.5 Polyp of colon; K64.4 Residual hemorrhoidal skin tags; Z20.822 Contact with and (suspected) exposure to COVID-19; K64.8 Other hemorrhoids; E11.22 Type 2 diabetes mellitus with diabetic chronic kidney disease; I12.9 Hypertensive chronic kidney disease with stage 1 through stage 4 chronic kidney disease, or unspecified chronic kidney disease; I25.2 Old myocardial infarction; Z86.73 Personal history of transient ischemic attack (TIA), and cerebral infarction without residual deficits; Z88.1 Allergy status to other antibiotic agents; Z79.899 Other long term (current) drug therapy; Z98.890 Other specified postprocedural states; Z79.4 Long term (current) use of insulin; Z79.01 Long term (current) use of anticoagulants; Z90.49 Acquired absence of other specified parts of digestive tract
CPT/HCPCS: 36415; 36416; 70450; 74177; 80048; 80053; 81003; 82274; 83690; 84484; 85025; 85610; 85730; 86850; 86900; 86901; 93005; 96374; C9113; J7030; J7050; U0003; U0005

== ENCOUNTER 2022-04-28 17:29 | Inpatient (IN) | payer BC, MEDICARE ==
[2022-04-28 18:11] LABS: #Eosinphils 0.5 thou/uL (0.0-0.7); #Lymphocytes 1.4 thou/uL (1.20-3.40); #Monocytes 0.9 thou/uL (0.11-0.59); #Neutrophils 8.1 thou/uL (1.40-6.50); %Basophils 0.3 % (0.0-1.0); %Eosinophils 4.6 % (0.0-10.0); %Lymphocytes 13.1 % (21.0-51.0); %Monocytes 7.9 % (0.0-10.0); %Neutrophils 74.1 % (42.0-75.0); Hemoglobin 12.1 g/dL (14.0-18.0); Mean Corpuscular HGB CONC 32.6 g/dL (32.0-36.0); Mean Corpuscular Hemoglobin 28.1 pg (27.0-31.0); Mean Corpuscular Volume 86.1 fl (78.0-98.0); Mean Platelet Volume 8.7 fL (7.4-10.4); Platelet Count 264 10x3/uL (130-400); Red Blood Cell (RBC) Count 4.31 mill/uL (4.70-6.10); White Blood Cell (WBC) Count 10.9 10x3/uL (4.8-10.8)
[2022-04-28 18:32] LABS: ALT (SGPT) 12 U/L (8-55); AST (SGOT) 17 U/L (5-34); Albumin 4.5 g/dL (3.4-4.8); Alkaline Phosphatase 157 U/L (40-110); Anion Gap 14 mmol/L (10-20); BUN (Urea Nitrogen) 25 mg/dL (8.4-25.7); Bilirubin, Total 0.5 mg/dL (0.2-1.2); Calc. Creatinine Clearance 0 mL/min (70-130); Calcium 9.4 mg/dL (7.8-10.44); Carbon Dioxide 25 mmol/L (23-31); Chloride 103 mmol/L (98-107); Estimated GFR 37; Globulin 3.4 g/dL (2.4-3.5); Glucose 111 mg/dL (83-110); Protein, Total 7.9 g/dL (5.8-8.1); Sodium 138 mmol/L (136-145)
[2022-04-28 19:21] LABS: Bilirubin Negative (Negative); Blood, Urine Negative (Negative); Clarity Clear (Clear); Glucose, Urine (Dipstick) Normal (Negative); Ketone, Urine Negative (Negative); Leukocyte Negative Leu/uL (Negative); Nitrite Negative (Negative); Protein, Urine (Dipstick) Negative (Neg-Trace); Specific Gravity, Urine 1.013 (1.002-1.036); Urobilinogen Normal mg/dL (Less than 2)
[2022-04-28] MEDS ORDERED: Dextrose 5% in Water 1,000 ML IV PRN (22:31)
[2022-04-28] MEDS ORDERED: Dextrose 50% Abboject 50 ML SYRINGE SLOW IVP PRN (22:31)
[2022-04-28] MEDS ORDERED: HumaLOG 300 UNITS/3 ML VIAL SC PRN ×2 (22:31)
[2022-04-28] MEDS: Sodium Chloride 0.9% 1,000 ML IV SCH (23:00)
[2022-04-28 23:48] VITALS: BMI 30.9
[2022-04-29 04:27] LABS: #Eosinphils 0.7 thou/uL (0.0-0.7); #Lymphocytes 1.4 thou/uL (1.20-3.40); #Monocytes 0.8 thou/uL (0.11-0.59); #Neutrophils 4.9 thou/uL (1.40-6.50); %Basophils 0.3 % (0.0-1.0); %Eosinophils 8.4 % (0.0-10.0); %Lymphocytes 17.9 % (21.0-51.0); %Monocytes 10.4 % (0.0-10.0); %Neutrophils 62.9 % (42.0-75.0); Hemoglobin 9.2 g/dL (14.0-18.0); Mean Corpuscular HGB CONC 32.8 g/dL (32.0-36.0); Mean Corpuscular Hemoglobin 28.5 pg (27.0-31.0); Mean Corpuscular Volume 86.9 fl (78.0-98.0); Mean Platelet Volume 8.4 fL (7.4-10.4); Platelet Count 222 10x3/uL (130-400); RBC Distribution Width 13.8 % (11.5-14.5); Red Blood Cell (RBC) Count 3.23 mill/uL (4.70-6.10); White Blood Cell (WBC) Count 7.8 10x3/uL (4.8-10.8)
[2022-04-29 04:58] LABS: Anion Gap 10 mmol/L (10-20); BUN (Urea Nitrogen) 22 mg/dL (8.4-25.7); Calc. Creatinine Clearance 61 mL/min (70-130); Calcium 7.9 mg/dL (7.8-10.44); Carbon Dioxide 22 mmol/L (23-31); Chloride 110 mmol/L (98-107); Estimated GFR 51; Glucose 109 mg/dL (83-110); Potassium 3.6 mmol/L (3.5-5.1); Sodium 138 mmol/L (136-145)
[2022-04-29] MEDS: Carvedilol 3.125 MG TAB PO SCH ×2 (08:52→17:47)
[2022-04-29] MEDS: Sodium Chloride 0.9% 1,000 ML IV SCH ×2 (08:55→17:50)
[2022-04-29] MEDS ORDERED: FLU VACC QS2022-23(65YR UP)/PF 240 MCG/0.7 ML SYRINGE IM ONE (09:00)
[2022-04-29] MEDS: Atorvastatin Calcium 40 MG TAB PO SCH (20:09)
[2022-04-29] MEDS: Docusate 100 MG CAP PO PRN (20:38)
[2022-04-30] MEDS ORDERED: Polyethylene Glycol 3350 17 GM Packet PO SCH (02:45)
[2022-04-30] MEDS: Sodium Chloride 0.9% 1,000 ML IV SCH ×3 (03:37→23:28)
[2022-04-30 05:17] LABS: #Eosinphils 0.7 thou/uL (0.0-0.7); #Lymphocytes 1.3 thou/uL (1.20-3.40); #Neutrophils 6.6 thou/uL (1.40-6.50); %Basophils 0.3 % (0.0-1.0); %Eosinophils 7.4 % (0.0-10.0); %Lymphocytes 13.2 % (21.0-51.0); %Monocytes 10.4 % (0.0-10.0); %Neutrophils 68.7 % (42.0-75.0); Hemoglobin 9.4 g/dL (14.0-18.0); Mean Corpuscular HGB CONC 32.5 g/dL (32.0-36.0); Mean Corpuscular Hemoglobin 28.5 pg (27.0-31.0); Mean Corpuscular Volume 87.7 fl (78.0-98.0); Mean Platelet Volume 8.4 fL (7.4-10.4); Platelet Count 206 10x3/uL (130-400); RBC Distribution Width 13.8 % (11.5-14.5); Red Blood Cell (RBC) Count 3.28 mill/uL (4.70-6.10); White Blood Cell (WBC) Count 9.6 10x3/uL (4.8-10.8)
[2022-04-30 05:41] LABS: Anion Gap 12 mmol/L (10-20); BUN (Urea Nitrogen) 15 mg/dL (8.4-25.7); Calc. Creatinine Clearance 77 mL/min (70-130); Calcium 8.1 mg/dL (7.8-10.44); Carbon Dioxide 18 mmol/L (23-31); Chloride 112 mmol/L (98-107); Estimated GFR 68; Glucose 120 mg/dL (83-110); Potassium 3.8 mmol/L (3.5-5.1); Sodium 138 mmol/L (136-145)
[2022-04-30] MEDS: Carvedilol 3.125 MG TAB PO SCH (09:08)
[2022-04-30] MEDS: Docusate 100 MG CAP PO PRN (09:09)
[2022-04-30] MEDS ORDERED: Bisacodyl 10 MG SUPP PR SCH (10:30)
[2022-04-30] MEDS ORDERED: Milk Of Magnesia 30 ML UDCUP PO SCH (10:30)
[2022-04-30] MEDS: Atorvastatin Calcium 40 MG TAB PO SCH (20:04)
[2022-05-01] MEDS: Docusate 100 MG CAP PO PRN (08:59)
[2022-05-01] MEDS ORDERED: Diltiazem HCl SR 60 mg Capsule PO SCH (09:30)
[2022-05-01] MEDS ORDERED: Mineral Oil ENEMA PR SCH (11:00)
[2022-05-01] MEDS: Atorvastatin Calcium 40 MG TAB PO SCH (21:01)
[2022-05-02] MEDS: Acetaminophen 325 MG TAB PO PRN (10:55)
[2022-05-02] MEDS ORDERED: Ipratropium/Albuterol 3 ML NEB NEB PRN (12:40)
[2022-05-02 13:08] LABS: Bacteria/HPF None Seen HPF (None Seen); Bilirubin Negative (Negative); Blood, Urine Negative (Negative); CAUTI Indications for Culture Fever or rigors; Clarity Clear (Clear); Glucose, Urine (Dipstick) 70 mg/dL (Negative); Ketone, Urine Negative (Negative); Leukocyte Negative Leu/uL (Negative); Nitrite Negative (Negative); Protein, Urine (Dipstick) 20 mg/dL (Neg-Trace); RBC/HPF 0-3 HPF (0-3); Specific Gravity, Urine 1.017 (1.002-1.036); Squamous Epithelial None Seen HPF (0-3); Urobilinogen Normal mg/dL (Less than 2); WBC/HPF 0-3 HPF (0-3)
[2022-05-02 13:13] LABS: Urine Culture Reflex No No
[2022-05-02] MEDS ORDERED: Furosemide 20 MG TAB PO SCH (17:00)
[2022-05-02] MEDS: Atorvastatin Calcium 40 MG TAB PO SCH (21:18)
[2022-05-02] MEDS: Carvedilol 3.125 MG TAB PO SCH (21:18)
[2022-05-03 04:56] LABS: #Eosinphils 0.4 thou/uL (0.0-0.7); #Lymphocytes 0.9 thou/uL (1.20-3.40); #Monocytes 0.8 thou/uL (0.11-0.59); #Neutrophils 5.6 thou/uL (1.40-6.50); %Basophils 0.5 % (0.0-1.0); %Eosinophils 4.9 % (0.0-10.0); %Lymphocytes 11.1 % (21.0-51.0); %Monocytes 10.8 % (0.0-10.0); %Neutrophils 72.8 % (42.0-75.0); Hemoglobin 9.8 g/dL (14.0-18.0); Mean Corpuscular HGB CONC 31.6 g/dL (32.0-36.0); Mean Corpuscular Hemoglobin 27.7 pg (27.0-31.0); Mean Corpuscular Volume 87.6 fl (78.0-98.0); Mean Platelet Volume 8.5 fL (7.4-10.4); Platelet Count 209 10x3/uL (130-400); RBC Distribution Width 13.5 % (11.5-14.5); Red Blood Cell (RBC) Count 3.54 mill/uL (4.70-6.10); White Blood Cell (WBC) Count 7.8 10x3/uL (4.8-10.8)
[2022-05-03 05:26] LABS: Anion Gap 11 mmol/L (10-20); BUN (Urea Nitrogen) 12 mg/dL (8.4-25.7); Calc. Creatinine Clearance 72 mL/min (70-130); Calcium 8.3 mg/dL (7.8-10.44); Carbon Dioxide 21 mmol/L (23-31); Chloride 109 mmol/L (98-107); Estimated GFR 62; Glucose 113 mg/dL (83-110); Magnesium 1.9 mg/dL (1.6-2.6); Potassium 3.6 mmol/L (3.5-5.1); Sodium 137 mmol/L (136-145)
[2022-05-03] MEDS: Carvedilol 3.125 MG TAB PO SCH ×2 (08:15→21:18)
[2022-05-03] MEDS ORDERED: Furosemide 20 MG/2 ML VIAL SLOW IVP SCH (09:00)
[2022-05-03] MEDS: Acetaminophen 325 MG TAB PO PRN (21:17)
[2022-05-03] MEDS: Atorvastatin Calcium 40 MG TAB PO SCH (21:18)
[2022-05-04 08:45] VITALS: TEMP 98.6
[2022-05-04 12:14] VITALS: BP 134/62
[2022-05-05] MEDS ORDERED: Semaglutide [Ozempic] 1 MG/0.75 ML Pen.Injctr SC SCH (09:00)
== END 2022-05-04 14:00 | disposition home or self-care (01) | DRG 312 ==
LOC: ERS 17:29 → 2NO 21:50 → OBSVTOIN 04-30 10:20
PROVIDERS: ADMIT Hospitalist; ATTEND Family Medicine
DX: I95.1 Orthostatic hypotension (principal); N17.9 Acute kidney failure, unspecified; E87.20 Acidosis, unspecified; I95.2 Hypotension due to drugs; E86.9 Volume depletion, unspecified; E11.22 Type 2 diabetes mellitus with diabetic chronic kidney disease; N18.30 Chronic kidney disease, stage 3 unspecified; I12.9 Hypertensive chronic kidney disease with stage 1 through stage 4 chronic kidney disease, or unspecified chronic kidney disease; I48.0 Paroxysmal atrial fibrillation; D63.1 Anemia in chronic kidney disease; T46.1X5A Adverse effect of calcium-channel blockers, initial encounter; K59.00 Constipation, unspecified; Z88.1 Allergy status to other antibiotic agents; Z79.82 Long term (current) use of aspirin; Z79.899 Other long term (current) drug therapy; Z86.73 Personal history of transient ischemic attack (TIA), and cerebral infarction without residual deficits
CPT/HCPCS: 36415; 36416; 71045; 71046; 74018; 80048; 80053; 81001; 81003; 82533; 83605; 83735; 83880; 84484; 84550; 85025; 93005; 94799; 96360; 96361; G0378; J1940; J7050; U0003; U0005

== ENCOUNTER 2023-02-09 11:21 | Inpatient (IN) | payer BC, MEDICARE ==
[2023-02-09 12:19] LABS: #Eosinphils 0.1 thou/uL (0.0-0.7); #Monocytes 0.5 thou/uL (0.11-0.59); #Neutrophils 4.9 thou/uL (1.40-6.50); %Basophils 0.5 % (0.0-1.0); %Eosinophils 1.1 % (0.0-10.0); %Monocytes 7.9 % (0.0-10.0); %Neutrophils 79.3 % (42.0-75.0); Hematocrit 37.5 % (42.0-52.0); Hemoglobin 9.6 g/dL (14.0-18.0); Mean Corpuscular HGB CONC 25.6 g/dL (32.0-36.0); Mean Corpuscular Hemoglobin 17.1 pg (27.0-31.0); Mean Corpuscular Volume 66.6 fl (78.0-98.0); Platelet Count 157 10x3/uL (130-400); RBC Distribution Width 22.1 % (11.5-14.5); Red Blood Cell (RBC) Count 5.63 mill/uL (4.70-6.10); White Blood Cell (WBC) Count 6.2 10x3/uL (4.8-10.8)
[2023-02-09 12:47] LABS: ALT (SGPT) 9 U/L (8-55); AST (SGOT) 18 U/L (5-34); Albumin 3.6 g/dL (3.4-4.8); Alkaline Phosphatase 120 U/L (40-110); Anion Gap 13 mmol/L (10-20); BUN (Urea Nitrogen) 14 mg/dL (8.4-25.7); Calc. Creatinine Clearance 0 mL/min (70-130); Calcium 8.7 mg/dL (7.8-10.44); Carbon Dioxide 25 mmol/L (23-31); Chloride 104 mmol/L (98-107); Estimated GFR 53; Globulin 3.1 g/dL (2.4-3.5); Glucose 208 mg/dL (83-110); Lipase 33 U/L (8-78); Potassium 4.5 mmol/L (3.5-5.1); Protein, Total 6.7 g/dL (5.8-8.1); Sodium 137 mmol/L (136-145)
[2023-02-09 12:48] LABS: Troponin I Less than 0.010 ng/mL (< 0.028)
[2023-02-09] MEDS ORDERED: Furosemide 40 MG/4 ML VIAL ONE (13:00)
[2023-02-09 13:12] LABS: Elliptocytes SLIGHT = 2-5 cells HPF (0-1); Hypochromia SLIGHT = 6-15 cells HPF (0-5); Microcytosis MODERATE=15-30 cells HPF (0-5); Ovalocytes SLIGHT = 2-5 cells HPF (0-1); Platelet Adequacy Comment Platelets Normal; Polychromasia SLIGHT = 2-3 cells HPF (0-2)
[2023-02-09] MEDS ORDERED: Ondansetron ODT 4 MG TAB PO PRN (15:43)
[2023-02-09] MEDS ORDERED: Acetaminophen 325 MG TAB PO PRN (15:43)
[2023-02-09] MEDS ORDERED: Calcium Carbonate 500 MG ChewTAB PO PRN (15:43)
[2023-02-09] MEDS ORDERED: Ondansetron PF 4 MG/2 ML Vial IVP PRN (15:43)
[2023-02-09] MEDS ORDERED: hydrALAZINE 25 MG TAB PO PRN (16:14)
[2023-02-09] MEDS ORDERED: hydrALAZINE 20 MG/ML VIAL SLOW IVP PRN (16:14)
[2023-02-09 16:39] LABS: Troponin I Less than 0.010 ng/mL (< 0.028)
[2023-02-09 16:43] VITALS: BMI 30.9
[2023-02-09 18:58] LABS: Troponin I Less than 0.010 ng/mL (< 0.028)
[2023-02-09] MEDS: Atorvastatin Calcium 20 MG TAB PO SCH (20:27)
[2023-02-09] MEDS: Heparin 5,000 UNITS/ML VIAL SC SCH (20:27)
[2023-02-09] MEDS: Gabapentin 300 MG CAP PO SCH (20:27)
[2023-02-09] MEDS: Multivit, Therapeutic 1 TAB PO SCH (20:27)
[2023-02-09] MEDS: Insulin Glargine 30 UNITS/0.3 ML VIAL SC SCH (21:05)
[2023-02-10 05:49] LABS: #Eosinphils 0.2 thou/uL (0.0-0.7); #Monocytes 0.8 thou/uL (0.11-0.59); %Basophils 0.7 % (0.0-1.0); %Eosinophils 3.3 % (0.0-10.0); %Lymphocytes 16.1 % (21.0-51.0); %Monocytes 13.8 % (0.0-10.0); %Neutrophils 65.8 % (42.0-75.0); Hematocrit 37.9 % (42.0-52.0); Hemoglobin 9.6 g/dL (14.0-18.0); Mean Corpuscular HGB CONC 25.3 g/dL (32.0-36.0); Mean Corpuscular Hemoglobin 16.5 pg (27.0-31.0); Mean Corpuscular Volume 65.1 fl (78.0-98.0); Platelet Count 166 10x3/uL (130-400); RBC Distribution Width 22.3 % (11.5-14.5); Red Blood Cell (RBC) Count 5.82 mill/uL (4.70-6.10); White Blood Cell (WBC) Count 6.1 10x3/uL (4.8-10.8)
[2023-02-10] MEDS ORDERED: Furosemide 40 MG/4 ML VIAL SLOW IVP SCH (06:00)
[2023-02-10 06:19] LABS: ALT (SGPT) 7 U/L (8-55); AST (SGOT) 14 U/L (5-34); Albumin 3.5 g/dL (3.4-4.8); Alkaline Phosphatase 106 U/L (40-110); BUN (Urea Nitrogen) 16 mg/dL (8.4-25.7); Bilirubin, Total 1.1 mg/dL (0.2-1.2); Calc. Creatinine Clearance 54 mL/min (70-130); Calcium 8.6 mg/dL (7.8-10.44); Carbon Dioxide 28 mmol/L (23-31); Chloride 106 mmol/L (98-107); Estimated GFR 46; Globulin 2.7 g/dL (2.4-3.5); Glucose 123 mg/dL (83-110); Iron 15 ug/dL (65-175); Iron Binding Capacity, Total 343 mcg/dL (261-462); Protein, Total 6.2 g/dL (5.8-8.1); Sodium 140 mmol/L (136-145)
[2023-02-10 06:40] LABS: Anion Gap 10 mmol/L (10-20)
[2023-02-10] MEDS: Aspirin 81 mg Enteric Coated Tablet PO SCH (10:18)
[2023-02-10] MEDS: Lisinopril 5 MG TAB PO SCH (10:18)
[2023-02-10] MEDS: Heparin 5,000 UNITS/ML VIAL SC SCH ×2 (10:19→20:26)
[2023-02-10] MEDS: Iron, Sodium Ferric Gluconate 250 MG in Sodium Chloride 0.9% 250 ML 250 ML IVPB SCH (12:02)
[2023-02-10] MEDS ORDERED: Potassium Chloride 20 MEQ TAB PO SCH (16:10)
[2023-02-10 16:59] LABS: Anion Gap 14 mmol/L (10-20); BUN (Urea Nitrogen) 18 mg/dL (8.4-25.7); Calc. Creatinine Clearance 55 mL/min (70-130); Calcium 8.7 mg/dL (7.8-10.44); Carbon Dioxide 26 mmol/L (23-31); Chloride 101 mmol/L (98-107); Estimated GFR 47; Glucose 144 mg/dL (83-110); Potassium 3.6 mmol/L (3.5-5.1); Sodium 137 mmol/L (136-145)
[2023-02-10] MEDS: Gabapentin 300 MG CAP PO SCH (20:24)
[2023-02-10] MEDS: Multivit, Therapeutic 1 TAB PO SCH (20:24)
[2023-02-10] MEDS: Atorvastatin Calcium 20 MG TAB PO SCH (20:24)
[2023-02-10] MEDS: Insulin Glargine 30 UNITS/0.3 ML VIAL SC SCH (20:25)
[2023-02-11] MEDS ORDERED: Furosemide 40 MG/4 ML VIAL SLOW IVP SCH (06:00)
[2023-02-11] MEDS: Aspirin 81 mg Enteric Coated Tablet PO SCH (08:39)
[2023-02-11] MEDS: Lisinopril 5 MG TAB PO SCH (08:39)
[2023-02-11] MEDS: Heparin 5,000 UNITS/ML VIAL SC SCH (08:39)
[2023-02-11] MEDS: Iron, Sodium Ferric Gluconate 250 MG in Sodium Chloride 0.9% 250 ML 250 ML IVPB SCH (09:34)
[2023-02-11 12:01] VITALS: BP 112/59; TEMP 97.8
[2023-02-12] MEDS ORDERED: Furosemide 40 MG TAB PO SCH (07:30)
== END 2023-02-11 13:24 | disposition home or self-care (01) | DRG 291 ==
LOC: ERS 11:21 → 2SW 15:25 → OBSVTOIN 02-10 09:12
PROVIDERS: ADMIT Internal Medicine; ATTEND Internal Medicine
PROC: 5A09357 Assistance with Respiratory Ventilation, Less than 24 Consecutive Hours, Continuous Positive Airway Pressure (ICD-10-PCS; principal; 2023-02-10)
DX: I13.0 Hypertensive heart and chronic kidney disease with heart failure and stage 1 through stage 4 chronic kidney disease, or unspecified chronic kidney disease (principal); I50.33 Acute on chronic diastolic (congestive) heart failure; J96.11 Chronic respiratory failure with hypoxia; I48.92 Unspecified atrial flutter; I48.0 Paroxysmal atrial fibrillation; I25.10 Atherosclerotic heart disease of native coronary artery without angina pectoris; G47.33 Obstructive sleep apnea (adult) (pediatric); E78.5 Hyperlipidemia, unspecified; N18.31 Chronic kidney disease, stage 3a; R63.5 Abnormal weight gain; E11.42 Type 2 diabetes mellitus with diabetic polyneuropathy; D50.9 Iron deficiency anemia, unspecified; D63.1 Anemia in chronic kidney disease; I27.20 Pulmonary hypertension, unspecified; F32.A Depression, unspecified; E11.22 Type 2 diabetes mellitus with diabetic chronic kidney disease; K57.90 Diverticulosis of intestine, part unspecified, without perforation or abscess without bleeding; Z88.1 Allergy status to other antibiotic agents; Z79.899 Other long term (current) drug therapy; Z98.890 Other specified postprocedural states; Z95.828 Presence of other vascular implants and grafts; Z90.49 Acquired absence of other specified parts of digestive tract; Z90.89 Acquired absence of other organs; Z80.0 Family history of malignant neoplasm of digestive organs; Z83.6 Family history of other diseases of the respiratory system; Z79.4 Long term (current) use of insulin; Z68.29 Body mass index [BMI] 29.0-29.9, adult
CPT/HCPCS: 36415; 36416; 71045; 80053; 82728; 83540; 83550; 83690; 83735; 83880; 84443; 84484; 85025; 93005; 96372; 96374; 96376; 97139; G0378; J1644; J1815; J1940; J2916; J7050